=== PATIENT | male | born 1985 | race American Indian/Alaskan Native ===

== ENCOUNTER 2018-07-07 19:24 | Emergency (ER) | payer BC ==
[~2018-07-07] VITALS: Ht 162.6 cm; Wt 67.6 kg
[~2018-07-07 19:24] MED LIST: AMOX500 PO; CEPH500 PO; CIPR500 PO; CLIN300 PO; CRUTCH3 USE; GLIP5 PO; GLYB2.5 PO; HYDACE5 PO; IBUP600 PO; IBUP800 PO; INSDET100 SQ; INSUASPI SC; METF500 PO; METR500 PO; NAPR500 PO; NAPR500EC PO; OMEP40CA12 PO; ONDA4ODT MM; OXYACE5T PO; PIOG15 PO; PROM25 PO; PSYL5.85P PO; Percocet 5-3251 EACH PO; RXHYDACE PO; SULTRIDS PO; TRAM50 PO; Ultram50 MG PO
[2018-07-07] MEDS ORDERED: IBUP800 PO (20:07)
[2018-07-07] MEDS ORDERED: Cyclobenzaprine5 MG PO (20:07)
== END 2018-07-07 20:20 | disposition home or self-care (01) ==
LOC: ER 19:24
DX: S06.9X0A Unspecified intracranial injury without loss of consciousness, initial encounter (principal); M54.5 Low back pain; M54.2 Cervicalgia; E11.9 Type 2 diabetes mellitus without complications; Z79.4 Long term (current) use of insulin; Z87.891 Personal history of nicotine dependence; W19.XXXA Unspecified fall, initial encounter; Y93.67 Activity, basketball
CPT/HCPCS: 96372; 99283-25; J1885

== ENCOUNTER 2020-08-12 04:21 | Observation (INO) | payer BC ==
[~2020-08-12] VITALS: Ht 162.6 cm; Wt 66.2 kg
[~2020-08-12 04:21] MED LIST changes: +Cyclobenzaprine5 MG PO
[2020-08-12 04:35] LABS: Calcium, Ionized (POC) 1.09 mmol/L (1.10-1.46); Chloride (POC) 105 mmol/L (98-108); Creatinine (POC) 2.2 mg/dL (0.8-1.3); Glucose (ISTAT POC) 261 mg/dL (70-99); Hemoglobin (POC) 11.9 g/dL (13.5-17.5); Potassium (POC) 3.9 mmol/L (3.5-5.5); Sodium (POC) 137 mmol/L (135-148); Total CO2 (POC) 23 mmol/L (21-32)
[2020-08-12 04:41] LABS: BASOPHILS ABSOLUTE AUTO 0.06 K/mm3 (0.00-0.23); BASOPHILS PERCENT AUTO 1 % (0-2); EOSINOPHILS ABSOLUTE AUTO 0.19 K/mm3 (0.00-0.68); EOSINOPHILS PERCENT AUTO 2 % (0-6); Hematocrit 34.3 % (37.0-53.0); Hemoglobin 12.4 g/dL (13.5-17.5); IMMATURE GRAN ABSOLUTE AUTO 0.02 K/mm3 (0.00-0.10); IMMATURE GRAN PERCENT AUTO 0 % (0-1); LYMPHOCYTES ABSOLUTE AUTO 3.08 K/mm3 (0.84-5.20); LYMPHOCYTES PERCENT AUTO 33 % (21-46); MONOCYTES ABSOLUTE AUTO 0.66 K/mm3 (0.16-1.47); MONOCYTES PERCENT AUTO 7 % (4-13); Mean Corpuscular HGB 29.7 pg (26.0-34.0); Mean Corpuscular HGB Conc 36.2 g/dL (31.5-36.5); Mean Corpuscular Volume 82 fL (80-100); Mean Platelet Volume 9.5 fL (9.1-12.4); NEUTROPHILS ABSOLUTE AUTO 5.42 K/mm3 (1.96-9.15); NEUTROPHILS PERCENT AUTO 58 % (41-73); Platelet Count 393 K/mm3 (150-400); RDW Standard Deviation 36.3 fL (35.1-46.3); Red Blood Cell Count 4.17 M/mm3 (4.30-5.90); White Blood Cell Count 9.43 K/mm3 (4.00-11.30)
[2020-08-12 05:00] LABS: Alanine Aminotransfer (ALT/SGP 37 U/L (12-78); Albumin, Blood 2.3 g/dL (3.4-5.0); Albumin/Globulin Ratio 0.6 (0.8-1.8); Alk Phos 123 U/L (50-136); Anion Gap 10 mmol/L (6-16); Aspartate Aminotrans (AST/SGOT 25 U/L (12-37); Bilirubin, Total 0.3 mg/dL (0.1-1.0); Blood Urea Nitrogen 31 mg/dL (8-24); Bun/Creatinine Ratio 15.7 (12.0-20.0); CO2, Blood 22 mmol/L (21-32); Calcium, Blood 8.2 mg/dL (8.5-10.1); Chloride, Blood 107 mmol/L (98-108); Creatinine, Blood 1.97 mg/dL (0.60-1.20); Globulin, Blood 4.1 g/dL (2.2-4.0); Glomerular Filtration Rate 41 (60-); Glucose, Blood 259 mg/dL (70-99); Potassium, Blood 3.8 mmol/L (3.5-5.5); Sodium, Blood 139 mmol/L (136-145); Total Protein, Blood 6.4 g/dL (6.4-8.2); Troponin I <0.015 ng/mL (0.000-0.040)
[2020-08-12 13:26] LABS: CPK Creatine Kinase 218 U/L (39-308); Troponin I <0.015 ng/mL (0.000-0.040)
--- NOTE | 2020-08-12 15:28 | NUR ---
Telephone report received from ED RN. Anticipate pt arrival to PCU 15 shortly.
--- NOTE | 2020-08-12 16:56 | NUR ---
echocardiogram complete
--- NOTE | 2020-08-12 17:52 | NUR ---
Pt arrived to PCU; states chest pressure 5/10, better than 9/10 which he was having when he came into the ED, when it was also accompanied by dyspnea. No dyspnea at this time. STates that the chest pressure increases when he tries to take a deep breath. Noted blood pressure is elevated. Pt stated that after 3 doses of sublingual NTG his chest pressure was relieved in the ED. Troponins are negative x2; hydralazine given per PRN orders, and blood pressure did normalize. Dr. Gillette came to see the patient, lopressor orders noted and administered as ordered after pt had dinner. Heart rhythm sinus tachycardia, 104-105 on the monitor noted. Occasional dry cough noted. Pt has no other complaints.
[2020-08-12 21:23] LABS: CPK Creatine Kinase 247 U/L (39-308); Troponin I <0.015 ng/mL (0.000-0.040)
--- NOTE | 2020-08-12 21:46 | NUR ---
CARE ASSUMPTION PT A&O X4. INDEPENDENT IN RM. VSS. SPO2 > 92% ON RA. MONITOR SHOWS SR-ST, HR 90's-110. PT DENIES CP AT THIS TIME. PT INFORMED TO NOTIFY STAFF IF CP RETURNS.
--- NOTE | 2020-08-13 05:46 | NUR ---
SHIFT SUMMARY PT DENIES CP T/O SHIFT. NO EVENTS OR CHANGES THIS SHIFT.
[2020-08-13 06:05] LABS: BASOPHILS ABSOLUTE AUTO 0.01 K/mm3 (0.00-0.23); BASOPHILS PERCENT AUTO 0 % (0-2); EOSINOPHILS PERCENT AUTO 0 % (0-6); Hematocrit 34.7 % (37.0-53.0); Hemoglobin 12.1 g/dL (13.5-17.5); IMMATURE GRAN ABSOLUTE AUTO 0.06 K/mm3 (0.00-0.10); IMMATURE GRAN PERCENT AUTO 1 % (0-1); LYMPHOCYTES ABSOLUTE AUTO 0.88 K/mm3 (0.84-5.20); LYMPHOCYTES PERCENT AUTO 7 % (21-46); MONOCYTES ABSOLUTE AUTO 0.12 K/mm3 (0.16-1.47); MONOCYTES PERCENT AUTO 1 % (4-13); Mean Corpuscular HGB 29.2 pg (26.0-34.0); Mean Corpuscular HGB Conc 34.9 g/dL (31.5-36.5); Mean Corpuscular Volume 84 fL (80-100); Mean Platelet Volume 10.1 fL (9.1-12.4); NEUTROPHILS ABSOLUTE AUTO 11.39 K/mm3 (1.96-9.15); NEUTROPHILS PERCENT AUTO 91 % (41-73); Platelet Count 389 K/mm3 (150-400); RDW Coefficient Variation 12.2 % (11.7-14.2); RDW Standard Deviation 37.2 fL (35.1-46.3); Red Blood Cell Count 4.15 M/mm3 (4.30-5.90); White Blood Cell Count 12.46 K/mm3 (4.00-11.30)
[2020-08-13 06:31] LABS: Albumin, Blood 2.1 g/dL (3.4-5.0); Albumin/Globulin Ratio 0.5 (0.8-1.8); Bilirubin, Total 0.4 mg/dL (0.1-1.0); Bun/Creatinine Ratio 16.1 (12.0-20.0); Calcium, Blood 8.1 mg/dL (8.5-10.1); Creatinine, Blood 2.55 mg/dL (0.60-1.20); Globulin, Blood 3.9 g/dL (2.2-4.0); Potassium, Blood 4.1 mmol/L (3.5-5.5); Thyroid Stimulating Hormone 0.714 uIU/mL (0.360-4.800)
--- NOTE | 2020-08-13 08:49 | NUR ---
States chest pressure was completely relieved during the night, and this morning it is 3/10 and that he has no dyspnea. Hungry for breakfast, took a.m. meds without difficulty. Sinus tachycardia, 107 bpm noted by telemetry. blood pressure WNL.
--- NOTE | 2020-08-13 09:03 | NUR ---
STATES CHEST PRESSURE is gone unless he takes a deep breath, and then it is 3/10
--- NOTE | 2020-08-13 10:22 | NUR ---
Call to Dr. Velazquez regarding new order for Toprol XL after administration of previously ordered metoprolol tartrate this morning. New order rec'd for 25 of Toprol XL now.
--- NOTE | 2020-08-13 12:12 | NUR ---
states chest pressure is 3/10, and only when he takes deep breaths. NO dyspnea/shortness of breath.
[2020-08-13] MEDS ORDERED: INSULANPEN SC (14:10)
[2020-08-13] MEDS ORDERED: HUMALOG100 UNIT/1 (14:12)
[2020-08-13] MEDS ORDERED: METO50ER PO (14:13)
--- NOTE | 2020-08-13 14:45 | NUR ---
Discharge instructions reviewed with the patient and his Blair piña. Reveiwed lifestyle modifications for reducing stress, medication and diabetic treatment compliance. Pt's wang states she can get a blood pressure monitor for the pt to check blood pressure and heart rate before he takes his metoprolol succinate. Pt was given written prescription from dr. Velazquez for glucometer and strips for checking blood sugar before meals. He states that he is very familiar with checking his blood sugar and administering insulin since he has done it since age 16. Reviewed plan for him to see Dr. Schroeder tomorrow, and discuss with her when he should return to work. He states that the earliest he would return would be Tuesday night. Phone number for PCU given to pt in the case that he would have questions or concerns after getting home. Telemetry and IV dc'd; pt is showering before he leaves the hospital.
== END 2020-08-13 15:21 | disposition home or self-care (01) ==
LOC: ER 04:21 → ERHOLD 04:22 → PCU 15:35
PROVIDERS: Student in an Organized Health Care Education/Training Program; ADMIT Internal Medicine
DX: I16.0 Hypertensive urgency (principal); R07.81 Pleurodynia; F41.9 Anxiety disorder, unspecified; I12.9 Hypertensive chronic kidney disease with stage 1 through stage 4 chronic kidney disease, or unspecified chronic kidney disease; E10.22 Type 1 diabetes mellitus with diabetic chronic kidney disease; E10.65 Type 1 diabetes mellitus with hyperglycemia; N18.30 Chronic kidney disease, stage 3 unspecified; R79.89 Other specified abnormal findings of blood chemistry; Z87.891 Personal history of nicotine dependence
CPT/HCPCS: 36415; 71045; 71260; 80047; 80053; 82550; 82947; 83690; 83880; 84443; 84484; 85014; 85025; 93005; 93010; 93306; 96372; 96372-59; 96374-59; 96375-59; 96376; 99285-25; A9270; G0378; J0360; J1650; J2930; J7030; Q9967

== ENCOUNTER 2022-02-04 01:49 | Inpatient (IN) | payer BC ==
[~2022-02-04] VITALS: Ht 160 cm; Wt 61.0 kg
[~2022-02-04 01:49] MED LIST changes: +HUMALOG100 UNIT/1; +INSULANPEN SC; +METO50ER PO
[2022-02-04 03:15] LABS: BASOPHILS ABSOLUTE AUTO 0.02 K/mm3 (0.00-0.23); BASOPHILS PERCENT AUTO 0 % (0-2); EOSINOPHILS ABSOLUTE AUTO 0.23 K/mm3 (0.00-0.68); EOSINOPHILS PERCENT AUTO 2 % (0-6); Hematocrit 21.4 % (37.0-53.0); Hemoglobin 6.8 g/dL (13.5-17.5); IMMATURE GRAN ABSOLUTE AUTO 0.08 K/mm3 (0.00-0.10); IMMATURE GRAN PERCENT AUTO 1 % (0-1); LYMPHOCYTES ABSOLUTE AUTO 0.64 K/mm3 (0.84-5.20); LYMPHOCYTES PERCENT AUTO 6 % (21-46); MONOCYTES PERCENT AUTO 6 % (4-13); Mean Corpuscular HGB 30.2 pg (26.0-34.0); Mean Corpuscular HGB Conc 31.8 g/dL (31.5-36.5); Mean Corpuscular Volume 95 fL (80-100); Mean Platelet Volume 10.5 fL (9.1-12.4); NEUTROPHILS ABSOLUTE AUTO 9.43 K/mm3 (1.96-9.15); NEUTROPHILS PERCENT AUTO 86 % (41-73); Platelet Count 234 K/mm3 (150-400); RDW Coefficient Variation 14.4 % (11.7-14.2); RDW Standard Deviation 49.6 fL (35.1-46.3); Red Blood Cell Count 2.25 M/mm3 (4.30-5.90)
[2022-02-04 03:39] LABS: Beta-hydroxybutyrate 28.7 mg/dL (0.2-2.8)
[2022-02-04 03:45] LABS: Albumin, Blood 3.3 g/dL (3.4-5.0); Bilirubin, Total 0.3 mg/dL (0.1-1.0); Bun/Creatinine Ratio 8.1 (12.0-20.0); Calcium, Blood 5.3 mg/dL (8.5-10.1); Creatinine, Blood 14.4 mg/dL (0.60-1.20); Globulin, Blood 3.2 g/dL (2.2-4.0); Potassium, Blood 4.4 mmol/L (3.5-5.5); Total Protein, Blood 6.5 g/dL (6.4-8.2)
[2022-02-04 04:11] LABS: Influenza A, PCR NEGATIVE (NEGATIVE); Influenza B, PCR NEGATIVE (NEGATIVE); Resp Syncytial Virus, PCR NEGATIVE (NEGATIVE); SARS-Cov-2 (COVID-19) PCR, MMC NEGATIVE (NEGATIVE)
[2022-02-04 05:14] LABS: International Normalized Ratio 1.12; Prothrombin Time Results 11.7 Sec (9.7-11.5)
[2022-02-04 06:41] LABS: Percent Saturation 42.7 % (20.0-50.0)
--- NOTE | 2022-02-04 07:19 | NUR ---
ADMIT TO UNIT. PT ARRIVED MOANING IN PAIN AND DISCOMFORT. STATES 8/10 ON BOTH FLANKS OF THE BACK. PRBC INFUSING, D5NS INFUSING AT 150ML/HR. UNABLE TO LAY DOWN, HAD TO SIT UP ON SIDE OF BED. VS WNL AT THIS TIME. SINUS ON THE MONITOR. NEW IV STARTED TO LEFT FA, 20G, CALCIUM STARTED. DR. STOKES WAS IN TO SEE HIM, STATES HE THINKS THE BLOOD SUGARS BEING LOW ARE RELATED TO HIS N/V, AND NO FOOD INTAKE FOR SEVERAL DAYS. STILL THINKS INSULIN SHOULD BE STARTED AND BALANCED OUT WITH THE D5, WHICH HE WILL BE ADDING BICARB TO THE D5. BS CURRENTLY 92. 0.5MG OF DILUDID GIVEN FOR PAIN. INSULIN BAG SCANNED AND READY TO START. REPORT GIVEN TO DAYSHIFT.
[2022-02-04 08:12] LABS: Source, Urine Clean Catch
[2022-02-04 08:14] LABS: Appearance, Urine Clear (Clear); Bilirubin, Urine Neg (Neg); Blood, Urine 3+ (Neg); Color, Urine Yellow (P-Yellow); Glucose Qualitative, Urine Neg (Neg); Ketones, Urine Neg (Neg); Leukocyte Esterase, Urine Neg (Neg); Nitrite, Urine Neg (Neg); Protein, Urine 4+ (Neg); Urobilinogen, Urine NORM (Normal)
[2022-02-04 08:31] LABS: U Amphetamine Screen Not Detected; U Barbituate Screen Not Detected; U Benzodiazapine Screen Not Detected; U Buprenorphine Screen Not Detected; U Cannabinoids Screen Not Detected; U Cocaine Screen Not Detected; U Methadone Screen Not Detected; U Methamphetamine Screen Not Detected; U Opiates Screen Not Detected; U Oxycodone Screen Not Detected; U Phencyclidine Screen Not Detected; U Propoxyphene Screen Not Detected
[2022-02-04 08:42] LABS: Red Blood Cells, Urine 0-2 /hpf (0-2); Squamous Epithelial Cells Rare /hpf (Few); White Blood Cells, Urine 0-2 /hpf (0-5)
[2022-02-04 08:43] LABS: Bacteria Few /hpf
[2022-02-04 08:44] LABS: Amorphous Mod (0-Heavy)
[2022-02-04 09:16] LABS: BASOPHILS ABSOLUTE AUTO 0.01 K/mm3 (0.00-0.23); BASOPHILS PERCENT AUTO 0 % (0-2); EOSINOPHILS ABSOLUTE AUTO 0.07 K/mm3 (0.00-0.68); EOSINOPHILS PERCENT AUTO 1 % (0-6); Hematocrit 22.6 % (37.0-53.0); Hemoglobin 7.2 g/dL (13.5-17.5); IMMATURE GRAN ABSOLUTE AUTO 0.07 K/mm3 (0.00-0.10); IMMATURE GRAN PERCENT AUTO 1 % (0-1); LYMPHOCYTES ABSOLUTE AUTO 0.64 K/mm3 (0.84-5.20); LYMPHOCYTES PERCENT AUTO 7 % (21-46); MONOCYTES ABSOLUTE AUTO 0.59 K/mm3 (0.16-1.47); MONOCYTES PERCENT AUTO 6 % (4-13); Mean Corpuscular HGB 30.1 pg (26.0-34.0); Mean Corpuscular HGB Conc 31.9 g/dL (31.5-36.5); Mean Corpuscular Volume 95 fL (80-100); Mean Platelet Volume 10.6 fL (9.1-12.4); NEUTROPHILS ABSOLUTE AUTO 8.29 K/mm3 (1.96-9.15); NEUTROPHILS PERCENT AUTO 86 % (41-73); Platelet Count 214 K/mm3 (150-400); RDW Coefficient Variation 14.3 % (11.7-14.2); RDW Standard Deviation 49.8 fL (35.1-46.3); Red Blood Cell Count 2.39 M/mm3 (4.30-5.90); White Blood Cell Count 9.67 K/mm3 (4.00-11.30)
[2022-02-04 09:43] LABS: Magnesium, Blood 1.9 mg/dL (1.6-2.4)
[2022-02-04 10:05] LABS: Albumin, Blood 3.1 g/dL (3.4-5.0); Bilirubin, Total 0.8 mg/dL (0.1-1.0); Bun/Creatinine Ratio 8.9 (12.0-20.0); Calcium, Blood 5.7 mg/dL (8.5-10.1); Creatinine, Blood 13.3 mg/dL (0.60-1.20); Globulin, Blood 3.1 g/dL (2.2-4.0); Potassium, Blood 4.5 mmol/L (3.5-5.5); Total Protein, Blood 6.2 g/dL (6.4-8.2)
--- NOTE | 2022-02-04 10:54 | NUR ---
ASSUME CARE BEDSIDE REPORT FROM OTONIEL OLIVIER AT 0700. PT ADMITTED FROM ER AT 0618 FOR FILIPPO AND DKA. PT REPORTS BILATERAL FLANK PAIN AND NOT FEELING WELL FOR 3 DAYS. HAS BEEN OUT OF INSULIN. PT LAYING IN BED c EYES CLOSED. OPENS EYES TO VERBAL STIMULI. A&OX 4. REPORTS PAIN TO BILATERAL FLANKS, RESTLESS IN BED. LUNGS CLEAR. SKIN P/W/D. SR, RATE 90'S. BP STABLE. ABD ROUND, SOFT, NON TENDER. BT X 4, HYPOACTIVE. SANCHEZ PLACED, CLEAR YELLOW URINE OUT. SENT TO LAB. TRANSFUSED 1 UNIT PRBC, 2ND UNIT PENDING 1200 LABS. D5HCO3 AT 150 ML/HR, INSULIN GTT TITRATED. WILL CONTINUE TO MONITOR.
[2022-02-04 11:04] LABS: Phosphorus, Blood 9.2 mg/dL (2.5-4.9)
[2022-02-04 12:25] LABS: Hematocrit 21.1 % (37.0-53.0); Hemoglobin 7.1 g/dL (13.5-17.5)
[2022-02-04 13:04] LABS: Bun/Creatinine Ratio 8.9 (12.0-20.0); Calcium, Blood 6.5 mg/dL (8.5-10.1); Creatinine, Blood 13.3 mg/dL (0.60-1.20); Potassium, Blood 3.9 mmol/L (3.5-5.5)
[2022-02-04 17:03] LABS: Hematocrit 19.9 % (37.0-53.0); Hemoglobin 6.8 g/dL (13.5-17.5)
[2022-02-04 17:32] LABS: Albumin, Blood 3.1 g/dL (3.4-5.0); Anion Gap 14 mmol/L (6-16); Blood Urea Nitrogen 118 mg/dL (8-24); CO2, Blood 14 mmol/L (21-32); Calcium, Blood 6.4 mg/dL (8.5-10.1); Chloride, Blood 113 mmol/L (98-108); Glomerular Filtration Rate 5 (60-); Glucose, Blood 97 mg/dL (70-99); Phosphorus, Blood 8.8 mg/dL (2.5-4.9); Potassium, Blood 3.4 mmol/L (3.5-5.5); Sodium, Blood 141 mmol/L (136-145)
--- NOTE | 2022-02-04 18:03 | NUR ---
SHIFT SUMMARY PT RESTING IN BED. WAKES c VERBAL STIMULI. ANSWERS QUESTIONS APPROPRIATELY. FOLLOWS COMMANDS. C/O PAIN TO BILATERAL FLANKS, MANAGED WELL c OXYCODONE. INSULIN GTT STOPPED THIS SHIFT. BICARB GTT CONTINUES. 1 UNIT PRBC TRANSFUSED. CA 2 GRAMS REPLACED. POWERGLIDE PLACED TO LUE. SANCHEZ PLACED, 200 ML YELLOW URINE c SEDIMENT OUT. ADA DIET GIVEN, PT EATEN SMALL AMOUNTS. PT ABLE TO REPOSITION SELF. VSS. WILL CONTINUE TO MONITOR UNTIL REPORT TO ONCOMING NURSE.
[2022-02-04 19:58] LABS: Source, Urine Foley catheter
[2022-02-04 20:01] LABS: Appearance, Urine Hazy (Clear); Bilirubin, Urine Neg (Neg); Blood, Urine 5+ (Neg); Glucose Qualitative, Urine Neg (Neg); Ketones, Urine Neg (Neg); Leukocyte Esterase, Urine 3+ (Neg); Nitrite, Urine Neg (Neg); Protein, Urine 4+ (Neg); Urobilinogen, Urine NORM (Normal)
[2022-02-04 20:03] LABS: Color, Urine Pale Yellow (P-Yellow)
[2022-02-04 20:17] LABS: Transitional Epithelial Cells Few /hpf (0-Rare)
[2022-02-04 20:18] LABS: Amorphous Mod (0-Heavy); Bacteria Mod /hpf; Renal Epithelial Rare /hpf (0-Rare); Squamous Epithelial Cells Not Seen /hpf (Few)
--- NOTE | 2022-02-04 20:19 | NUR ---
ASSUMED CARE. PT VERY SOLUMENT, BUT DOES ANSWER QUESTIONS APPROPRIATLY, AOX3. STATES PAIN 5/10, TENDER ON BILATERAL FLANK AREAS. DINNER IS SETTING ON BEDSIDE TABLE, ENCOURAGED HIM TO EAT. BLOOD SUGAR WAS 82. D5 W/ BICARB INFUSING AT 125ML/HR. STARTED POTASSIUM PER ORDERS. SENT UA FOR SANCHEZ PLACEMENT. URINE IS CLEAR YELLOW SOME SEDIMENT. NO EDEMA. LS CLEAR, ON 4L WITH SATS HIGH 90'S. CHANGED BLOOD PRESSURE CUFF FROM WRIST TO ARM, BP WNL NOW. FALLS BACK TO SLEEP EASILY. WILL MONITOR. CALL LIGHT WITH IN REACH, BED IN LOW POSITION.
--- NOTE | 2022-02-04 21:06 | NUR ---
WENDY IS AWAKE BUT STILL VERY DROWSY. SITTING UP ATTEMPTING TO EAT. WILL TAKE A FEW BITES OF FOOD AND THEN FALLS RIGHT BACK TO SLEEP. SATS ARE HOLDING FROM 89-92% ON RA.
[2022-02-05 00:31] LABS: Hematocrit 19.4 % (37.0-53.0); Hemoglobin 6.7 g/dL (13.5-17.5)
[2022-02-05 01:29] LABS: Calcium, Blood 5.6 mg/dL (8.5-10.1); Creatinine, Blood 13.3 mg/dL (0.60-1.20); Potassium, Blood 3.3 mmol/L (3.5-5.5)
--- NOTE | 2022-02-05 01:35 | NUR ---
CRITICAL LAB: CALCIUM LOW AT 5.6. CREATINE NOW 13.30. CALLED DR. BARONE AND INFORMED OF NEW LAB RESULTS. SHE REQUESTED AN IONIZED CALCIUM TO BE DRAWN AND CALL HER WITH THE RESULTS IF LOW. REGARDING CREATINE AND H&H FOLLOW UP WITH MEHRDAD IN AM.
--- NOTE | 2022-02-05 04:30 | NUR ---
ASSUMED CARE OF PT AT 0340 FROM CHARLINE FREDERICK. REPORT RECEIVED. PT PRESENTS IN BED. NAUSEAS WITH EMESIS. PT UNSURE IF HE ASPIRATRED ANY EMESIS. DOES DESATURATE TO 85 PERCENT. DID REQUIRE USING NRB MASK FOR TEMPORARY OXYGENATION IMPROVEMENT. WILL REVIEW CHART AND PLAN OF CARE FOR THIS PT.
[2022-02-05 06:19] LABS: Hematocrit 21.9 % (37.0-53.0); Hemoglobin 7.4 g/dL (13.5-17.5)
--- NOTE | 2022-02-05 06:22 | NUR ---
HAVE BEEN ABLE TO TITRATE O2 BACK TO 5 L/M PER HIGH FLOW CANNULA. PT HAS 200 ML URINE OUTPUT THIS SHIFT. HAVE SENT LABS FOR 0600 TIMED DRAW. PENDING RESULTS. DID SPOT CHECK OF GLUCOSE WHICH REVEALS 70. PT ABLE TO MOVE ABOUT BED ON HIS OWN. WILL CONTINUE TO MONITOR PT, AND WILL REPORT OFF TO ONCOMING RN.
[2022-02-05 06:44] LABS: Magnesium, Blood 1.6 mg/dL (1.6-2.4)
[2022-02-05 07:07] LABS: Albumin, Blood 2.8 g/dL (3.4-5.0); Anion Gap 15 mmol/L (6-16); Blood Urea Nitrogen 120 mg/dL (8-24); Bun/Creatinine Ratio 8.6 (12.0-20.0); CO2, Blood 16 mmol/L (21-32); Calcium, Blood 6.7 mg/dL (8.5-10.1); Chloride, Blood 112 mmol/L (98-108); Glomerular Filtration Rate 4 (60-); Glucose, Blood 79 mg/dL (70-99); Phosphorus, Blood 8.6 mg/dL (2.5-4.9); Potassium, Blood 3.4 mmol/L (3.5-5.5); Sodium, Blood 143 mmol/L (136-145)
--- NOTE | 2022-02-05 09:47 | NUR ---
ASSUMED CARE OF WENDY AT 0700, HE IS VERY SLEEPY, NOT AROUSING TO STIMULI IN THE ROOM OR SPOKEN WORD. HE IS HAVING PERIODS OF DESATURATION D/T SLEEP APNEA. IV NAHCO3 RESTARTED AT 100ML/HR PER 'S INSTRUCTIONS. K+ 10MeQ GIVEN AND CALCIUM IVPB GIVEN PER ORDERS. PT AWAKENS JUST AFTER 0900 BEING DISTURBED FOR HIS IV CARE. HE IS NAUSEATED AND MEDICATED PER MAR. TOOK HIS MEDS WITH SIP OF WATER. LEFT FOREARM PIV SITE PAINFUL, D/C'D. RIGHT PIV IN A/C USED FOR IVPB FERRLECIT. PT BACK TO SLEEP.
--- NOTE | 2022-02-05 10:18 | NUR ---
AVIVA, PT'S SIGNIFICANT OTHER HERE, ASKING QUESTIONS ABOUT PT STILL REQUIRING HIS OXYGEN. SATS ARE REMAINING ~90-91% WITH HFNC @ 6L. LUNG SOUNDS ARE CLEAR, BELLY QUIET. NO EDEMA NOTED IN THE EXTREMITIES. SKIN WARM AND DRY.
[2022-02-05 11:30] LABS: PCO2 Arterial 36.2 mmHg (35-45); pH Blood Arterial 7.25 (7.35-7.45)
[2022-02-05 11:31] LABS: PO2 Arterial 46.1 mmHg (80-100)
[2022-02-05 13:07] LABS: Bun/Creatinine Ratio 8.9 (12.0-20.0); Creatinine, Blood 13.1 mg/dL (0.60-1.20); Potassium, Blood 3.4 mmol/L (3.5-5.5)
--- NOTE | 2022-02-05 14:36 | NUR ---
WENT TO NUCLEAR MEDICINE FOR STUDY, PT TOLERATED WELL SANS TRANSFER BACK TO /, HE BEGAN VOMITING. UPON RETURN TO THE ROOM HE WANTED TO USE THE TOILET, HE WAS TRANSITIONED FROM VENTURI MASK TO HFNC AND HIS SATS DROPPED TO 80% WITH THE MOVEMENT. PT BACK TO BED AND SEAL SKINNER HERE TO PERFORM PROCEDURE. PT ON LEFT SIDE, STATING IMPROVEMENT WITH THE NAUSEA. SATS 97% ON HIS LEFT SIDE WITH VENTURI MASK ON. S/O AT THE BEDSIDE.
--- NOTE | 2022-02-05 17:47 | NUR ---
SPOKE WITH RE: PT UPDATE AND FOLLOW UP ON ORDERS DONE THROUGHOUT THE DAY, SHE WANTED TO SPEAK WITH . CALLED AND ORDERS RECEIVED, DONE. CAME TO SPEAK WITH ME, ALSO WITH S/O AND COUSIN WHO WERE PRESENT AT THE BEDSIDE. WENDY TRIED TO TAKE A COUPLE OF BITES OF DINNER, HE THEN HAD N/V. TOO EARLY TO MEDICATE, ENCOURAGED DEEP BREATHING, SLOWING DOWN. HE IS ABLE TO MAINTAIN SATS ON HFNC WHILE ATTEMPTING TO EAT AND DRINK, HE IS FEELING LESS CONGESTED WITH THE HUMIDIFIER AND THE FLONASE. DOESN'T MIND USING THE VENTI MASK. WENT FROM DOWN TO WITH GOOD SATS. WILL CONTINUE TO USE BOTH NECESSARY. WILL CONTINUE TO MONITOR AND TREAT, WILL REPORT OFF TO NEXT SHIFT WHEN ABLE.
[2022-02-06 03:25] LABS: Hematocrit 21.1 % (37.0-53.0); Hemoglobin 7.1 g/dL (13.5-17.5)
[2022-02-06 03:53] LABS: Magnesium, Blood 1.5 mg/dL (1.6-2.4)
[2022-02-06 04:04] LABS: Albumin, Blood 2.6 g/dL (3.4-5.0); Anion Gap 12 mmol/L (6-16); Blood Urea Nitrogen 114 mg/dL (8-24); Bun/Creatinine Ratio 8.4 (12.0-20.0); CO2, Blood 21 mmol/L (21-32); Calcium, Blood 5.9 mg/dL (8.5-10.1); Chloride, Blood 108 mmol/L (98-108); Glomerular Filtration Rate 4 (60-); Glucose, Blood 103 mg/dL (70-99); Phosphorus, Blood 8.3 mg/dL (2.5-4.9); Potassium, Blood 3.1 mmol/L (3.5-5.5); Sodium, Blood 141 mmol/L (136-145)
--- NOTE | 2022-02-06 05:26 | NUR ---
END OF SHIFT SUMMARY NO OVER NIGHT EVENTS FOR SHIFT PT HAS REMAINED LETHARGIC FOR SHIFT PT IS EASY TO AROUSE BUT APPEARS QUITE ILL. PT HAD A NUMBER OF [facility] THIS AM ALL LABS AND I/O WERE CALLED TO [facility] REPLACING POTASIUM AND CALCIUM. PT HAD ECCO DONE YESTERDAY RESULTED SHOWING EF 55-60% VALVE REGURGITATION PUMANARY HYPERTENSION AMD SMALL PERCARDIAL EFFUSION. WILL CONTINUE TO MONITOR AND REPORT TO ONCOMING RN
[2022-02-06 06:46] LABS: CPK Creatine Kinase 1500 U/L (39-308)
--- NOTE | 2022-02-06 08:02 | NUR ---
ASSUMED CARE OF WENDY AT 0700, HE WAS SLEEPING QUIETLY WITH THE HFNC @ 7L, HE AWAKENED TO VOMITING AND WRETCHING. ZOFRAN GIVEN. SATS HOVERING IN THE MID 80S WITH EXPIRATORY WHEEZE NOTED, VENTI MASK 45%FIO2 PLACED WITH SATS TO LO 90S. WENDY STATES HE FEELS COLD, ALMOST SHIVERING, PALE/WAN APPEARING. PULSES PALP PEDAL, WITH TRACE EDEMA. ARMS WITH TRACE EDEMA WELL.
[2022-02-06 09:22] LABS: PO2 Arterial 65.8 mmHg (80-100); pH Blood Arterial 7.27 (7.35-7.45)
--- NOTE | 2022-02-06 09:37 | NUR ---
AND HAVE BOTH BEEN IN TO SEE THE PATIENT. DISCUSSION ABOUT HAVING DIALYSIS TODAY. PT IS AWARE AND AGREED TO THIS. STATES "WHAT ELSE AM I GOING TO DO?". REVIEWED OPTIONS FOR CARDIOLOGY CONSULT WITH , WILL CONTINUE CURRENT TREATMENT.
--- NOTE | 2022-02-06 10:22 | NUR ---
LAB RESULTS CALLED TO , ORDERS RECEIVED. STILL NO DIALYSIS. PT MADE AWARE, FAMILY IN TO SEE HIM. PT AND FAMILY VERY EMOTIONAL. BICARB INCREASED TO 75ML/HR, MORE BUMEX AND ZAROXOLYN ORDERED.
--- NOTE | 2022-02-06 10:47 | NUR ---
WHILE GIVING THE BUMEX, WENDY GOT NAUSEATED AND BEGAN WRETCHING AGAIN. HE HAD TAKEN THE PO PAIN PILL AND THE ZAROXOLYN, WITH ONLY SIPS OF WATER. HE DID NOT PRODUCE ANYTHING, JUST HAD THE DRY HEAVES. SANCHEZ BAG CONTINUES IN ICE FOR 24 HOUR URINE COLLECTION.
--- NOTE | 2022-02-06 14:38 | NUR ---
WENDY HAD ANOTHER BOUT OF DRY HEAVES AND WRETCHING. THIS TIME MEDICATED WITH ZOFRAN, SATS DROPPED TO MID 60S. VENTURI MASK ON @ 45%. RECOVERING. FAMILY IN TO VISIT.
--- NOTE | 2022-02-06 15:35 | NUR ---
WENDY CONTINUED TO DRY HEAVE WITH BLOOD TINGED MUCOUS RETURN, CALL TO DR. ALBERT WITH ORDERS RECEIVED FOR PHENERGAN. PT RESPONDED WELL TO PHENERGAN, EDUCATED ABOUT THE SIDE EFFECT OF SLEEPING TO PT AND FAMILY. PT'S SANCHEZ EMPTIED OF 1000ML OF LIGHT YELLOW RETURN. AWAIT 1500 LAB RESULT TO CALL DR. CRONIN.
--- NOTE | 2022-02-06 17:07 | NUR ---
WENDY CONTINUES TO SLEEP FROM THE PHENERGAN INJECTION. HE IS WEARING THE HFNC @ 6L WITH 100% SATURATION, BP HAS COME DOWN SOME. HE WAS AWAKENED TO TAKE THE PO METOLAZONE, HE WAS A BIT MORE DIFFICULT TO AROUSE, BUT WAS ABLE TO SWALLOW THE PILLS WITH WATER WITHOUT IT COMING BACK UP. NO OTHER CHANGES AT THIS TIME.
--- NOTE | 2022-02-06 19:29 | NUR ---
assumed care of pt recieved report from KAMRNO OLIVIER. PT LETHARGIC BUT AWAKE FOR BEDSIDE REPORT EATING A SANDWITCH. I WAS GIVEN UPDATES OF GOALS OF CARE 24 HR URIN COLLECTION AND HAPPENINGS DURING DAY SHIFT.
[2022-02-06 21:44] LABS: Albumin, Blood 2.6 g/dL (3.4-5.0); Anion Gap 11 mmol/L (6-16); Blood Urea Nitrogen 113 mg/dL (8-24); Bun/Creatinine Ratio 8.6 (12.0-20.0); CO2, Blood 24 mmol/L (21-32); Chloride, Blood 104 mmol/L (98-108); Glomerular Filtration Rate 4 (60-); Glucose, Blood 148 mg/dL (70-99); Phosphorus, Blood 8.4 mg/dL (2.5-4.9); Potassium, Blood 3.1 mmol/L (3.5-5.5); Sodium, Blood 139 mmol/L (136-145)
[2022-02-06 21:45] LABS: Calcium, Blood 5.7 mg/dL (8.5-10.1)
[2022-02-07 04:31] LABS: BASOPHILS ABSOLUTE AUTO 0.02 K/mm3 (0.00-0.23); BASOPHILS PERCENT AUTO 0 % (0-2); EOSINOPHILS ABSOLUTE AUTO 0.93 K/mm3 (0.00-0.68); EOSINOPHILS PERCENT AUTO 10 % (0-6); Hematocrit 22.2 % (37.0-53.0); Hemoglobin 7.6 g/dL (13.5-17.5); IMMATURE GRAN ABSOLUTE AUTO 0.04 K/mm3 (0.00-0.10); IMMATURE GRAN PERCENT AUTO 0 % (0-1); LYMPHOCYTES ABSOLUTE AUTO 1.17 K/mm3 (0.84-5.20); LYMPHOCYTES PERCENT AUTO 13 % (21-46); MONOCYTES ABSOLUTE AUTO 1.07 K/mm3 (0.16-1.47); MONOCYTES PERCENT AUTO 12 % (4-13); Mean Corpuscular HGB 30.3 pg (26.0-34.0); Mean Corpuscular HGB Conc 34.2 g/dL (31.5-36.5); NEUTROPHILS ABSOLUTE AUTO 5.98 K/mm3 (1.96-9.15); NEUTROPHILS PERCENT AUTO 65 % (41-73); Platelet Count 256 K/mm3 (150-400); RDW Coefficient Variation 13.7 % (11.7-14.2); RDW Standard Deviation 44.1 fL (35.1-46.3); Red Blood Cell Count 2.51 M/mm3 (4.30-5.90); White Blood Cell Count 9.21 K/mm3 (4.00-11.30)
[2022-02-07 04:34] LABS: Mean Corpuscular Volume 88 fL (80-100)
[2022-02-07 04:56] LABS: Magnesium, Blood 1.8 mg/dL (1.6-2.4)
[2022-02-07 05:50] LABS: Albumin, Blood 2.6 g/dL (3.4-5.0); Anion Gap 12 mmol/L (6-16); Blood Urea Nitrogen 109 mg/dL (8-24); Bun/Creatinine Ratio 8.3 (12.0-20.0); CO2, Blood 25 mmol/L (21-32); CPK Creatine Kinase 1204 U/L (39-308); Calcium, Blood 5.9 mg/dL (8.5-10.1); Chloride, Blood 104 mmol/L (98-108); Glomerular Filtration Rate 5 (60-); Glucose, Blood 115 mg/dL (70-99); Phosphorus, Blood 8.1 mg/dL (2.5-4.9); Sodium, Blood 141 mmol/L (136-145)
--- NOTE | 2022-02-07 06:46 | NUR ---
end of shift summary NO OVERNIGHT EVENTS PT RESTED MOST OF EVENING NO EPISODES OF N/V PT HAS HAD A SLIGHT INMPROVEMENT IN CREATINE 13.1. K IS STILL LOW ORDER WAS PLACED TO REPLENISHED. PT HAS REMAINED LETHARGIC AND INTERMINTANLY IRRITABLE WHEN WAKEN FOR THINGS LIKE REPLACING NC. PT HAS HAD A BM LARGE LIQUID WILL CONTINUE TO MONITOR AND REPORT OFF TO AM RN
--- NOTE | 2022-02-07 07:26 | NUR ---
ASSUMED CARE OF WENDY AT 0700, HE WAS UP AT THE [facility] [place]. HE WAS COOPERATIVE IN WAITING FOR ASSISTANCE BEFORE RETURNING TO BED. HE STATES HE HASN'T HAD ANY MORE N/V AND THAT HE IS "FEELING BETTER". PT STILL LOOKS PALE/WAN IN APPEARANCE AND IS VERY WEAK. HFNC @ 6L WITH SATS 100%. NAHCO3 INFUSING W/ A K+ RIDER. HANDS EDEMATOUS, ANKLES LESS SO. WILL COMPLETE THE 24 HOUR URINE COLLECTION AND SEND TO LAB.
[2022-02-07 08:43] LABS: Protein, Urine Quantitative 110.7 mg/dL (0.0-11.9)
[2022-02-07 15:50] LABS: Creatinine, Blood 13.1 mg/dL (0.60-1.20); Potassium, Blood 3.2 mmol/L (3.5-5.5)
--- NOTE | 2022-02-07 18:37 | NUR ---
WENDY HAS DONE WELL TODAY COMPARABLE TO THE LAST 2 DAYS. HIS COLOR IMPROVED WELL HIS APPETITE AND ALERTNESS. HE HAS BEEN A BIT MORE FEISTY TODAY, JOKING WITH THIS NURSE. SANCHEZ OUTPUT OVER 1L, WAS UP TO THE BSC THIS AM, NOTHING FURTHER. AT THE BEDSIDE, RESTING INTERMITTENTLY T/O THE DAY. HE HAD ONE SPELL OF SATS DROPPING TO THE 80S THIS EVENING WHEN HE WAS SLEEPING WELL. NO FURTHER CHANGES. WILL CONTINUE TO MONITOR AND REPORT OFF TO NEXT SHIFT WHEN ABLE.
[2022-02-08 04:11] LABS: Hemoglobin 7.7 g/dL (13.5-17.5)
[2022-02-08 04:36] LABS: Magnesium, Blood 1.7 mg/dL (1.6-2.4)
[2022-02-08 04:43] LABS: Albumin, Blood 2.6 g/dL (3.4-5.0); Anion Gap 10 mmol/L (6-16); Blood Urea Nitrogen 109 mg/dL (8-24); Bun/Creatinine Ratio 8.6 (12.0-20.0); CO2, Blood 30 mmol/L (21-32); Chloride, Blood 99 mmol/L (98-108); Glomerular Filtration Rate 5 (60-); Glucose, Blood 138 mg/dL (70-99); Phosphorus, Blood 7.4 mg/dL (2.5-4.9); Potassium, Blood 2.9 mmol/L (3.5-5.5); Sodium, Blood 139 mmol/L (136-145)
--- NOTE | 2022-02-08 05:57 | NUR ---
SHIFT SUMMARY: PT. REMAINED STABLE OVERNIGHT, REMAINED IN NSR IN THE 80S WITH SLIGHT HYPERTENSION. PT. SATTED ABOVE 92% ALL NIGHT ON 6L HI FLOW NASAL CANNULA BUT DESATS TO 60S WHEN REMOVED. PT. HAS BEEN SLEEPING BUT IS EASILY AROUSABLE. PT. HAS SANCHEZ CATHETER DRAINING TO GRAVITY AND PUT OUT 1950 OVERNIGHT. PT. IS UP TO BEDSIDE COMMODE WITH [facility] FOR BOWEL MOVEMENT. PT. HAD AN EPISODE OF NAUSEA WHICH RESOLVED WITH PRN MEDICATION. PT.'S LINENS HAVE BEEN CHANGED AND PT. HAS NO COMPLAINTS AT THIS TIME.
--- NOTE | 2022-02-08 09:14 | NUR ---
PT SLEEPING, AWAKENS WITH VOICE. HE DENIES HUNGER. DR. CRONIN IN TO SEE PT. HFNC @ 6L WITH SATS 93%, UPPER EXTREM. EDEMA @ 2+, LEGS TRACE, SANCHEZ WITH CLEAR LIGHT YELLOW RETURN. PIV IN LFA, PG IN TAMIA. ELECTROLYTE REPLACEMENT PER ORDERS, IRON IVPB PER ORDER. NS @ 50ML/HR.
--- NOTE | 2022-02-08 09:22 | NUR ---
PT DROPPED HIS SATS TO HI 70'S, SLEEPING ON HIS LEFT SIDE, GOOD PLETH. SLEEPING SOUNDLY, CHANGED TO VENTURI MASK @ 45%. SATS TO 95%.
--- NOTE | 2022-02-08 12:34 | NUR ---
UP TO THE CHAIR FOR LUNCH PER ORDERS FROM . PT WAS VERY SLOW TO MOVE, SITTING ON THE SIDE OF THE BED AND DANGLING FOR SOME TIME. HIS SATS DROPPED TO THE 70'S WITH THE VENTURI MASK ON. HE WAS ABLE TO GET TO THE CHAIR AFTER SEVERAL MINUTES, ONCE IN THE CHAIR HE HAD BOUTS OF DESATURATION TO THE LOW 80S WELL. AFTER A FEW MOMENTS HE RECOVERED TO THE HI 90S, CHANGED OVER TO THE HFNC @ 6L SO HE COULD EAT. HE IS ABLE TO EAT AND IS MORE ALERT AND ENGAGING NOW. HE WAS VERY AGITATED AND FEISTY IN THE TRANSITION. HE IS ENCOURAGED TO DO ARMS AND WRIST CIRCLES, ANKLE CIRCLES, ETC WHILE SITTING TO GET THE FLUID MOVING IN THE EXTREMITIES.
--- NOTE | 2022-02-08 13:33 | NUR ---
WENDY CONTINUES IN THE CHAIR, BY HIS REQUEST. HE ATE MORE FOR LUNCH THAN HE HAS EATEN THE LAST 4 DAYS. HE DID REQUEST A PAIN PILL, SAID THAT IT IS HELP- ING WITH THE LEG PAIN. HE IS TOLERATING BEING IN THE CHAIR VERY WELL SINCE THE INITIAL MOVE. LINEN CHANGED. AT BEDSIDE.
--- NOTE | 2022-02-08 13:54 | NUR ---
WENDY HAD A BRIEF EPISODE OF SATS TO THE 70S WHILE SITTING UP, HE HAD REMOVED THE MASK. WHEN ENCOURAGED TO REPLACE IT HE PUT IT ON AND RECOVERED IN A FEW MOMENTS.
[2022-02-08 13:56] LABS: Bun/Creatinine Ratio 8.2 (12.0-20.0); Calcium, Blood 5.6 mg/dL (8.5-10.1); Creatinine, Blood 12.7 mg/dL (0.60-1.20); Potassium, Blood 3.7 mmol/L (3.5-5.5)
--- NOTE | 2022-02-08 16:01 | NUR ---
WENDY HAS EATEN 2 HALF SANDWICHES SINCE LUNCH TIME, UPON HIS REQUEST. HE CONTINUES IN THE CHAIR, WEARING THE VENTURI MASK AT 45%. HE IS TOLERATING IT WELL. CONTINUES IN THE ROOM.
--- NOTE | 2022-02-08 17:54 | NUR ---
SUMMARY: WENDY GOT BACK TO BED JUST AFTER 1700, HE WASN'T HUNGRY FOR DINNER HE HAD JUST FINISHED HIS SECOND HALF SANDWICH. HE DID WELL GETTING BACK IN TO BED, HE DIDN'T HAVE ANY EPISODES OF DESATURATION. HE CONTINUES ON THE VENTURI MASK AT 45%, HE STATES THAT HE LIKES IT BETTER, IT'S MORE COMFORTABLE. HE CONTINUES WITH NS @ 50ML/HR. HIS HANDS ARE EDEMATOUS AND PAINFUL. HE HAS BEEN MEDICATED TWICE WITH PAIN PILL. HE HAS BEEN TOLD TO MOVE HIS JOINTS, THE MORE HE DOESN'T USE THEM, THE WORSE THEY WILL GET. HE IS ALSO ENCOURAGED TO DRINK MORE WATER AND TOLD THAT THIS WILL HELP WITH THE EDEMA. HE SEEMED TO DO BETTER AFTER RE- CEIVING HIS DIURETICS, LESS TIMES OF DESATURATION AND MORE ALERT, LESS DROWSY. HIS HAS GONE HOME, IN LAWS AND COUSIN NOW VISITING. HE RESTS INTERMITTENTLY.
[2022-02-09 04:20] LABS: Hematocrit 22.8 % (37.0-53.0); Hemoglobin 7.5 g/dL (13.5-17.5)
[2022-02-09 04:39] LABS: Magnesium, Blood 1.4 mg/dL (1.6-2.4)
[2022-02-09 04:47] LABS: Albumin, Blood 2.5 g/dL (3.4-5.0); Anion Gap 10 mmol/L (6-16); Blood Urea Nitrogen 107 mg/dL (8-24); Bun/Creatinine Ratio 8.4 (12.0-20.0); CO2, Blood 29 mmol/L (21-32); Calcium, Blood 5.7 mg/dL (8.5-10.1); Chloride, Blood 102 mmol/L (98-108); Glomerular Filtration Rate 5 (60-); Glucose, Blood 116 mg/dL (70-99); Phosphorus, Blood 6.5 mg/dL (2.5-4.9); Potassium, Blood 3.5 mmol/L (3.5-5.5); Sodium, Blood 141 mmol/L (136-145)
--- NOTE | 2022-02-09 06:17 | NUR ---
PAIN: Medicated for low back pain 1 times per emar with good relief. Patient states "I feel itchy". NEURO: A/Ox4 and cooperative with care. Pain to touch with BLE. Normal strength in all extremities, but weakness noted with L arm grasps. RESP: Maintains over 95% on Venturi 45%. LS clear on top and dim at bases with shallow breathing pattern noted. Multiple episodes of pt pulling off mask and desatting into 70's. Occasional dry cough. CARD: SR on tele 80's, denies any CP/pressure. BP elevated this evening to SBP 160-170. 1+ pitting edema to BLE and BUE. GI: Multiple loose odorous brown bm's this shift. 1 episode of emesis, small amount of undigested food. Medicated per emar with good relief URINARY: Flores cath draining to gravity clear/light urine. UO 1000ml this shift. PSYCH: Withdrawn but cooperative. Replaced Mag and Ca per Dr. Voss. Pt pulled PIV on accident.
[2022-02-09 13:24] LABS: Bun/Creatinine Ratio 7.7 (12.0-20.0); Calcium, Blood 6.4 mg/dL (8.5-10.1); Potassium, Blood 3.6 mmol/L (3.5-5.5)
--- NOTE | 2022-02-09 17:49 | NUR ---
SUMMARY PT RESTING IN BED. DROWSY THIS AFTERNOON. DR. ALBERT AND DR. CRONIN DECIDED PT SHOULD GET PERMACATH TODAY FOR DIAYLYSIS. PT WAS NPO ALL DAY AND RN WAS TOLD HE WOULD BE LEAVING FOR THE [facility]IVET SPINNER THIS AFTERNOON. AROUND 1630 THIS EVENING RN WAS INFORMED THAT PROCEDURE COULD NOT BE PERFORMED TONIGHT. CALLED DR. ALBERT AND DR. CRONIN WHO WERE OK WITH PT WAITING UNTIL THE MORNING FOR PROCEDURE. DR. ALBERT INFORMED OF HTN, NEW ORDERS FOR HYDRALAZINE AND METOPROLOL TONIGHT. PT WAS TOO DROWSY TO EAT AND WHEN OFF VENTI MASK HE DESATS IN TO THE MID 80'S. HOLDING PO FOR NOW. BUMEX GIVEN PER DR. CRONIN. PT IS VISITING WITH FAMILY A LITTLE BIT. FENTANYL GIVEN FOR BACK AND LEG PAIN/SPASMS.
--- NOTE | 2022-02-09 20:00 | NUR ---
ASSUMED CARE OF PT AT 1900. FAMILY WAS AT BEDSIDE IT IS HIS BIRTHDAY TODAY. PT WAS NAPPING, AWAKENS EASILY. AO X3/3. C/O BACK PAIN. WILL TRY KPAD FOR COMFORT. PLAN FOR PERMACATH PLACEMENT TOMORROW BY DR CROFT.
--- NOTE | 2022-02-10 00:23 | NUR ---
PT GETS UP TO BSC INDEPENDENTLY FOR BM. STATES PAIN IS IMPROVED WITH KPAD AND HAS BEEN SLEEPING SOUNDLY. DISCUSSED NPO, PT DECLINED A SNACK PRIOR TO THIS.
--- NOTE | 2022-02-10 06:19 | NUR ---
PT SLEEPS SOUNDLY FOR MOST OF THE NIGHT WITH BRIEF INTERRUPTIONS FOR CARE AND EPISODES OF N/V. N/V MANAGED WITH IV ZOFRAN AND PHENERGAN. PT REMAINS NPO SINCE MIDNIGHT FOR PLANNED PERMACATH PLACEMENT TODAY. NO OTHER SIGNIFICANT CHANGES NOTED. WILL CONTINUE TO MONITOR AND REPORT TO ONCOMING SHIFT.
[2022-02-10 06:22] LABS: Magnesium, Blood 1.7 mg/dL (1.6-2.4)
--- NOTE | 2022-02-10 06:49 | NUR ---
DR CRONIN IN TO SEE PT. LABS REVIEWED, NO NEW ORDERS AT THIS TIME.
--- NOTE | 2022-02-10 08:41 | NUR ---
AM NOTE: ASSUMED CARE OF PT AT 0700. PT IS SLEEPING BUT EASILY AROUSABLE; FALLS BACK ASLEEP VERY QUICKLY. THE PT IS A&O WHEN AWAKE AND IS ABLE TO FOLLOW COMMANDS AND ANSWER QUESTIONS. THE PT HAS CLEAR LUNG SOUNDS THROUGHOUT AND IS CURRENTLY ON THE VENTI MASK WITH 12 L/45%; O2 LEVELS MAINTAINING 96< AND RR 12-14. S1/S2 ASCULTATED WITH SBP IN THE 140'S AND HR 90'S; NO C/O CHEST PAIN. THE PT HAS A SOFT, NON-TENDER ABD WITH HYPOACTIVE BS IN ALL FOUR QUADRANTS; PT NPO AT THIS TIME R/T PRE-PROCEDURE. PT CBG THIS MORNING AT 62, AND PT GIVEN 50 ML D5. PLAN TO RECHECK CBG 30 MINS AFTER ADMINISTRATION. ALL EXTREMITIES WARM WITH PPP X 4. EDEMA NOTED IN THE UPPER/LOWER BILAT EXTREMITIES. THE PT HAS AN SANCHEZ CATHETER THAT IS PATENT AND DRAINING TO GRAVITY; URINE CLEAR, YELLOW. PT S/O, MARTI, AT BEDSIDE THIS MORNING AT 0830. SHE WAS UPDATED ON NEWS R/T PERMACATH INSERTION PROCEDURE PLANNED FOR . SHE WAS UPDATED ON PT'S CURRENT STATUS, AND ALL QUESTIONS WERE ANSWERED AT THIS TIME. WILL CONTINUE TO MONITOR THROUGHOUT THE SHIFT.
[2022-02-10 08:51] LABS: Albumin, Blood 2.6 g/dL (3.4-5.0); Anion Gap 14 mmol/L (6-16); Blood Urea Nitrogen 102 mg/dL (8-24); CO2, Blood 27 mmol/L (21-32); Calcium, Blood 6.1 mg/dL (8.5-10.1); Chloride, Blood 102 mmol/L (98-108); Glomerular Filtration Rate 5 (60-); Glucose, Blood 83 mg/dL (70-99); Phosphorus, Blood 6.9 mg/dL (2.5-4.9); Potassium, Blood 3.5 mmol/L (3.5-5.5); Sodium, Blood 143 mmol/L (136-145)
--- NOTE | 2022-02-10 09:21 | NUR ---
PT TO CAREER PLACEMENT SPECIALIST: PT TRANSPORTED TO CAREER PLACEMENT SPECIALIST AT 0915 VIA BED WITH GLORIA OLIVIER. PT S/O UPDATED ON EXPECTED TIME OF PROCEDURE.
--- NOTE | 2022-02-10 11:00 | NUR ---
PT BACK FROM PERMACATH PLACEMENT, CHARLINE HILTON AWARE WITH PLAN FOR DIALYSIS THIS AFTERNOON.
[2022-02-10 11:02] LABS: Hematocrit 24.6 % (37.0-53.0)
[2022-02-10 15:10] LABS: IMMUNOGLOBULIN A, QN, SERUM 195 mg/dL (90-386); IMMUNOGLOBULIN G, QN, SERUM 624 mg/dL (603-1613); IMMUNOGLOBULIN M, QN, SERUM 57 mg/dL (20-172)
--- NOTE | 2022-02-10 17:48 | NUR ---
SHIFT SUMMARY: PT REMAINS ALERT AND ORIENTED TIMES FOUR. PT IS INDEPENDENT WITH ADL'S REQUIRING STANDY BY ASSIST WHEN AMBULATING TO BEDSIDE COMMODE. PT LUNG SOUNDS CLEAR THROUGHOUT AND DIMINISHED IN THE BASES. PT ON 4 L OF O2 VIA NC' O2 LEVELS 92< AND RR 14-16. PT REMAINS IN SR WITH HR IN THE 80-90'S AND SBP 180'S; PT GIVEN HYDRALAZINE FOR HTN. PT HAS HYPERACTIVE BS IN ALL FOUR QUADRANTS. PERMACATH IMPLANTED EARLIER THIS MORNING AND PT RECIEVED DIALYSIS WITH 4 L TAKEN OFF; PT TOLERATED THIS WELL. THERE IS SOME BLOOD UNDERNEATH PERMACATH DRESSING; DIALYSIS NURSE THAT PERFORMED DIALYSIS ON THE PT THIS SHIFT STATED THAT A DRESSING CHANGE WILL BE CONDUCTED TOMORROW DURING NEXT DIALYSIS TREATMENT. PT SANCHEZ CATHETER REMOVED THIS SHIFT; PT USING URINAL. PT HAS WARM EXTREMITIES AND PPP X 4. WILL CONTINUE TO MONITOR PT UNTIL ONCOMING NURSE ARRIVES.
[2022-02-11 04:06] LABS: Hemoglobin 7.9 g/dL (13.5-17.5)
[2022-02-11 04:33] LABS: Magnesium, Blood 1.9 mg/dL (1.6-2.4)
[2022-02-11 04:44] LABS: Albumin, Blood 2.6 g/dL (3.4-5.0); Anion Gap 11 mmol/L (6-16); Blood Urea Nitrogen 60 mg/dL (8-24); Bun/Creatinine Ratio 6.3 (12.0-20.0); CO2, Blood 29 mmol/L (21-32); Calcium, Blood 6.8 mg/dL (8.5-10.1); Chloride, Blood 101 mmol/L (98-108); Creatinine, Blood 9.47 mg/dL (0.60-1.20); Glomerular Filtration Rate 7 (60-); Glucose, Blood 100 mg/dL (70-99); Phosphorus, Blood 4.9 mg/dL (2.5-4.9); Potassium, Blood 3.5 mmol/L (3.5-5.5); Sodium, Blood 141 mmol/L (136-145)
--- NOTE | 2022-02-11 06:04 | NUR ---
SHIFT SUMMARY: PT. REAMINED STABLE OVERNIGHT WITH HIS ONLY COMPLIANT BEING INTERMITTENT NAUSEA AND VOMITING. MEDICATION GIVEN PER EMAR FOR VOMITING. PT. IS STILL SATTING ABOVE 90% ON 6L NC AND HAS BEEN TACHY INTO THE LOW 100S IN SINUS RHYTHM. MEDICATED PER EMAR FOR HYPERTENSION THROUGHOUT THE NIGHT. PT. IS UP TO BEDSIDE COMMODE WITH STANDBY ASSIST TO VOID AND HAVE BMS. PT. RESTING IN BED WITH CALL LIGHT IN REACH.
--- NOTE | 2022-02-11 09:00 | NUR ---
AM NOTE: ASSUMED CARE OF PT AT 0700. PT ALERT AND ORIENTED X 4; APPEARS MORE DROWSY THIS MORNING COMPARED TO YESTERDAY. PT HAS A TEMPERATURE OF 101.0 THIS MORNING AND IS TACHYCARDIC WITH RATE IN THE 100-110. DR ALBERT AT BEDSIDE THIS MORNING TO ASSESS PT; VERBAL ORDERS GIVEN FOR BLOOD AND URINE CULTURES, AND STATUS CHANGE TO MED FLOOR NO TELE. PT HAS CLEAR LUNG SOUNDS THROUGHOUT AND DIM IN THE BASES; O2 LEVELS 96< AND IS ON 5 L VIA NC. S1/S2 ASCULTATED WITH SBP 120-130. PT C/O N/V THIS MORNING; MEDICATED PER EMAR. PT HAS HYPERACTIVE BS IN ALL FOUR QUADRANTS. PLANS FOR DIALYSIS THIS MORNING AT 0900. WARM EXTREMITIES WITH PPP X 4. WILL CONTINUE TO MONITOR THROUGHOUT THE SHIFT.
[2022-02-11 10:11] LABS: HBSAG SCREEN Negative (Negative); HCV AB <0.1 (0.0-0.9); HEP A AB, IGM Negative (Negative); HEP B CORE AB, IGM Negative (Negative)
[2022-02-11 13:11] LABS: ANTIMYELOPEROXIDASE (MPO) ABS <0.2 units (0.0-0.9); ANTIPROTEINASE 3 (PR-3) ABS <0.2 units (0.0-0.9); ATYPICAL PANCA <1:20 titer (Neg:<1:20); CYTOPLASMIC (C-ANCA) <1:20 titer (Neg:<1:20); PERINUCLEAR (P-ANCA) <1:20 titer (Neg:<1:20)
--- NOTE | 2022-02-11 18:38 | NUR ---
SHIFT SUMMARY: PT REMAINS A&O X 4. PT HAD DIALYSIS THIS MORNING AND 3800 MLS TAKEN OFF; DIALYSIS STOPPED EARLY DUE TO PT BECOMING HYPOTENSIVE. PT'S BP RECOVERED QUICKLY WITH SBP RETURNING TO 140-150'S; RATE 90-100'S. LUNG SOUNDS REMAIN CLEAR. PT FEBRILE THIS MORNING AND TEMP TRENDED DOWN THROUGHOUT THE DAY AND CAME BACK UP TO 99.3 AT 1600. PT LETHARGIC AND DROWSY THROUGHOUT THE SHIFT, BUT HAS BECOME MORE ENERGETIC AROUND 1700. PT ATTEMPTED TO EAT DINNER, BUT MEAL WAS UNAPPETIZING; PT ATE A FEW BITES AND HAD SOME CRACKERS. PT N/V HAS DECREASED SINCE THIS MORNING. PT HAS NOT PRODUCED ANY URINE FOR THIS SHIFT; ORDERS FOR A URINE CULTURE PUT IN THIS MORNING, AND PT INFORMED OF THE NEED TO COLLECT A SAMPLE WHEN HE IS ABLE TO VOID. PT INDEPENDENT WITH BED MOBILITY AND REFUSES OFFERS OF BOOSTS BY THIS RN. WILL CONTINUE TO MONITOR UNTIL ONCOMING NURSE ARRIVES.
[2022-02-12 04:16] LABS: Hematocrit 25.2 % (37.0-53.0); Hemoglobin 8.1 g/dL (13.5-17.5)
[2022-02-12 04:39] LABS: Albumin, Blood 2.7 g/dL (3.4-5.0); Anion Gap 9 mmol/L (6-16); Blood Urea Nitrogen 32 mg/dL (8-24); Bun/Creatinine Ratio 4.7 (12.0-20.0); CO2, Blood 31 mmol/L (21-32); Calcium, Blood 7.5 mg/dL (8.5-10.1); Chloride, Blood 101 mmol/L (98-108); Creatinine, Blood 6.77 mg/dL (0.60-1.20); Glomerular Filtration Rate 10 (60-); Glucose, Blood 81 mg/dL (70-99); Magnesium, Blood 1.9 mg/dL (1.6-2.4); Phosphorus, Blood 4.3 mg/dL (2.5-4.9); Potassium, Blood 3.4 mmol/L (3.5-5.5); Sodium, Blood 141 mmol/L (136-145)
--- NOTE | 2022-02-12 05:55 | NUR ---
UNEVENTFUL NITGHT. PT RESTED OVERNIGHT. INDEPENDENT WITH CARE. AFEBRILE SR SYSTOLIC 150'S NO EDEMA NOTED. ON 6LNC SAT >92% TOLERATING IN PO WELL. AMBULATE IN ROOM. TURNS SELF BONY PROMINENCES OFFLOADED AND PROTECTED.
--- NOTE | 2022-02-12 07:39 | NUR ---
ASSUMED CARE AT 0700, WENT IN TO [facility] FOR CHEM BG. PT IRRITABLE, CURSING. SUGAR 90. NO COVERAGE INDICATED. VSS.
[2022-02-12 09:10] LABS: M-SPIKE, % Not Observed % (Not Observed); PROTEIN,TOTAL,URINE 66.9 mg/dL (Not Estab.)
--- NOTE | 2022-02-12 12:34 | NUR ---
WENDY WENT TO THE SHOWER EARLIER, HE WAS VERY HAPPY WITH THAT, ALTHOUGH IT DID WEAR HIM OUT. HE RODE THE WHEELCHAIR BACK TO HIS ROOM. HE HAS GOOD APPE- TITE AND HAS GOOD SPIRITS. HE IS SMILING AND ENGAGING WITH STAFF, LAUGHING AT THE TV, WHICH HASN'T BEEN HEARD. HE IS WANTING TO LEARN MORE ABOUT HIS NEW DIET ALTERNATIVES. WILL REACH OUT TO SHAY.
--- NOTE | 2022-02-12 17:41 | NUR ---
WENDY HAS BEEN SLEEPING MOST OF THE AFTERNOON. HE DID EAT SOME LUNCH, BETTER THAN HIS BREAKFAST. HE IS SITTING UP IN THE ROOM NOW AND EATING HIS DINNER TRAY. HE JUST RECEIVED WORD THAT HE WILL BE MOVING TO A ROOM ON THE 3RD FLOOR. HE IS OK WITH THAT. HIS SPOT CHECK FOR HIS SP02 IS 94% WHILE SLEEPING ON RA. NO FEVERS TODAY. WILL REPORT TO NEXT NURSE AND TRANSFER WHEN FINISHED EATING.
--- NOTE | 2022-02-12 18:30 | NUR ---
REPORT TO CLARK GUZMANRN, PT'S BELONGINGS GATHERED, GRANDMA AND COUSIN ACCOMPANYING HIM TO MEDICAL FLOOR.
--- NOTE | 2022-02-12 18:50 | NUR ---
TRANSFER NOTE- PT TRANSFERED TO MEDICAL FLOOR PRIOR TO SHIFT CHANGE. PT WAS ABLE TO TRANSFER TO THE BED FROM THE [facility]. CALLED TELE, BOX AND PT VERIFIED. PT LUNG SOUNDS ARE CLEAR, QUILLER RUNNER ARE EQUAL BUT WEAK. PT WANTS TO SIT UP ON THE EOB FOR A WHILE, MULTIPLE FAMILY AT THE BEDSIDE. PER REPORT PT DID NOT HAVE DIALYSIS TODAY. HE HAS HAD TWO TREATMENTS WITH A TOTAL OF 8L REMOVED. PT DENIES THE NEED FOR PAIN MEDICATION UPON ARRIVAL TO MEDICAL FLOOR. PERIPHERAL PULSES EASILY PALPABLE. PER REPORT PT HAS HAD STOOLS BUT HAS NOT VOIDED SINCE SANCHEZ CATH WAS REMOVED.
[2022-02-13 05:06] LABS: Hemoglobin 8.4 g/dL (13.5-17.5)
--- NOTE | 2022-02-13 05:54 | NUR ---
SHIFT SUMMARY: PT IS ALERT AND ORIENTED. PT IS CALM AND COOPERATIVE WITH CARE. PT CALLS APPROPRIATELY. PT IS A STANDBY ASSIST TO THE BATHROOM. PT DENIES PAIN, NAUSEA, VOMITING, AND SOB. PT SLEPT MUCH OF THE NIGHT WHEN NOT DISTURBED. NO ACUTE CHANGES OR COMPLICATIONS THIS SHIFT. BED IN LOW POSITION, CALL LIGHT WITHIN REACH. WILL CONTINUE TO MONITOR.
[2022-02-13 06:06] LABS: Albumin, Blood 2.6 g/dL (3.4-5.0); Anion Gap 11 mmol/L (6-16); Blood Urea Nitrogen 40 mg/dL (8-24); Bun/Creatinine Ratio 5.1 (12.0-20.0); CO2, Blood 30 mmol/L (21-32); Calcium, Blood 7.5 mg/dL (8.5-10.1); Chloride, Blood 99 mmol/L (98-108); Creatinine, Blood 7.79 mg/dL (0.60-1.20); Glomerular Filtration Rate 8 (60-); Glucose, Blood 93 mg/dL (70-99); Magnesium, Blood 2.1 mg/dL (1.6-2.4); Phosphorus, Blood 4.8 mg/dL (2.5-4.9); Potassium, Blood 3.2 mmol/L (3.5-5.5); Sodium, Blood 140 mmol/L (136-145)
--- NOTE | 2022-02-13 17:09 | NUR ---
DAYSHIFT SUMMARY Patient had 1 episode of emesis this morning, IV Phenergan given, PRN effective. Dialysis this morning. MD assessed patient at bedside, instructed RN to administer zofran in the morning. Plan is for to discharge tomorrow after dialysis.
[2022-02-13 18:30] LABS: Source, Urine Clean Catch
[2022-02-13 19:44] LABS: Appearance, Urine Clear (Clear); Bilirubin, Urine Neg (Neg); Blood, Urine 1+ (Neg); Color, Urine Yellow (P-Yellow); Glucose Qualitative, Urine 1+ (Neg); Ketones, Urine Neg (Neg); Leukocyte Esterase, Urine Neg (Neg); Nitrite, Urine Neg (Neg); Protein, Urine 4+ (Neg); Specific Gravity, Urine 1.015 (1.003-1.022); Urobilinogen, Urine NORM (Normal)
[2022-02-13 20:07] LABS: Amorphous Light (0-Heavy); Bacteria Few /hpf; Red Blood Cells, Urine 0-2 /hpf (0-2); Squamous Epithelial Cells Not Seen /hpf (Few); White Blood Cells, Urine 0-2 /hpf (0-5)
--- NOTE | 2022-02-14 04:09 | NUR ---
SHIFT SUMMARY: PT IS ALERT AND ORIENTED. PT IS CALM AND COOPERATIVE WITH CARE. PT CALLS APPROPRIATELY. FAMILY IN VISITING AT THE START OF THE NIGHT. PT DENIES PAIN, NAUSEA, VOMITING AND SOB. POSSIBLE DC TODAY AFTER DIALYSIS. NO ACUTE CHANGES OR COMPLICATIONS. WILL CONTINUE TO MONITOR.
[2022-02-14 05:52] LABS: Hemoglobin 9.1 g/dL (13.5-17.5)
[2022-02-14 09:50] LABS: Anion Gap Unable to Calculate mmol/L (6-16)
[2022-02-14 09:51] LABS: Bun/Creatinine Ratio Unable to Calculate (12.0-20.0)
[2022-02-14] MEDS ORDERED: BUME2 PO (09:55)
[2022-02-14] MEDS ORDERED: CALCITRIOL0.5 MC1 PO (09:55)
[2022-02-14] MEDS ORDERED: CALCIUM CARBON500 M2 (09:56)
[2022-02-14] MEDS ORDERED: METO25 (09:57)
[2022-02-14 10:34] LABS: Albumin, Blood 2.9 g/dL (3.4-5.0); Anion Gap 7 mmol/L (6-16); Blood Urea Nitrogen 22 mg/dL (8-24); Bun/Creatinine Ratio 3.8 (12.0-20.0); CO2, Blood 32 mmol/L (21-32); Calcium, Blood 8.2 mg/dL (8.5-10.1); Chloride, Blood 101 mmol/L (98-108); Creatinine, Blood 5.77 mg/dL (0.60-1.20); Glomerular Filtration Rate 12 (60-); Glucose, Blood 159 mg/dL (70-99); Phosphorus, Blood 3.3 mg/dL (2.5-4.9); Potassium, Blood 3.5 mmol/L (3.5-5.5); Sodium, Blood 140 mmol/L (136-145)
--- NOTE | 2022-02-14 11:52 | NUR ---
Patient had diaylsis in room today, after treatment patient reports feeling tired. Discharge home after dialysis tx. Reviewed discharge instructions with patient & , medications information provided. Removed indwelling IV fro RUE, Catheter tip intact, site WNL. Patient left unit at 1145.
== END 2022-02-14 11:50 | disposition home or self-care (01) | DRG 673 ==
LOC: ER 01:49 → ICUE 05:38 → ICUW 05:38 → ICUE 06:15 → MEDS 02-12 18:20
PROVIDERS: Emergency Medicine; Internal Medicine; Internal Medicine Nephrology; Student in an Organized Health Care Education/Training Program; ADMIT Internal Medicine
PROC: 0JH63XZ Insertion of Tunneled Vascular Access Device into Chest Subcutaneous Tissue and Fascia, Percutaneous Approach (ICD-10-PCS; principal; 2022-02-10)
PROC: 02HV33Z Insertion of Infusion Device into Superior Vena Cava, Percutaneous Approach (ICD-10-PCS; 2022-02-10)
PROC: B5181ZA Fluoroscopy of Superior Vena Cava using Low Osmolar Contrast, Guidance (ICD-10-PCS; 2022-02-10)
PROC: 5A1D70Z Performance of Urinary Filtration, Intermittent, Less than 6 Hours Per Day (ICD-10-PCS; 2022-02-10)
PROC: 30233N1 Transfusion of Nonautologous Red Blood Cells into Peripheral Vein, Percutaneous Approach (ICD-10-PCS; 2022-02-10)
DX: N17.0 Acute kidney failure with tubular necrosis (principal); E10.10 Type 1 diabetes mellitus with ketoacidosis without coma; J96.01 Acute respiratory failure with hypoxia; J96.02 Acute respiratory failure with hypercapnia; I12.0 Hypertensive chronic kidney disease with stage 5 chronic kidney disease or end stage renal disease; E87.1 Hypo-osmolality and hyponatremia; N18.6 End stage renal disease; Z20.822 Contact with and (suspected) exposure to COVID-19; E10.22 Type 1 diabetes mellitus with diabetic chronic kidney disease; M54.9 Dorsalgia, unspecified; E83.39 Other disorders of phosphorus metabolism; E83.42 Hypomagnesemia; E10.40 Type 1 diabetes mellitus with diabetic neuropathy, unspecified; D63.1 Anemia in chronic kidney disease; E83.51 Hypocalcemia; Z91.14 Patient's other noncompliance with medication regimen; Z87.891 Personal history of nicotine dependence; Z79.4 Long term (current) use of insulin
CPT/HCPCS: 0241U; 36415; 36430; 36558; 36600; 51702; 71045; 74176; 76770; 76937; 77001; 78582; 80048; 80053; 80069; 80074; 81001; 81050; 82010; 82040; 82306; 82330; 82550; 82565; 82570; 82607; 82728; 82746; 82800; 82803; 82947; 83036; 83516; 83520; 83540; 83550; 83615; 83735; 83970; 84100; 84132; 84156; 84166; 85014; 85018; 85025; 85610; 85730; 86037; 86038; 86317; 86334; 86335; 86850; 86900; 86901; 86920; 87040; 87086; 93306; 94760; 94762; 96361; 96374; 96375; 99152; 99291-25; A9270; A9540; C1750; C1751; C1769; C1894; C9113; J0360; J0881; J1170; J1644; J1815; J1885; J2250; J2405; J2550; J2916; J3010; J3475; J3480; J7030; J7042; J7050; J7070; P9016

== ENCOUNTER 2022-08-14 23:25 | Emergency (ER) | payer OTHER ==
[~2022-08-14] VITALS: Ht 160 cm; Wt 70.8 kg
[~2022-08-14 23:25] MED LIST changes: +CALCITRIOL0.5 MC1 PO; +CALCIUM CARBON500 M2; +HUMALOG KW200 UNIT/2 SQ
[2022-08-15] LABS: BASOPHILS ABSOLUTE AUTO 0.08 K/mm3 (0.00-0.23); BASOPHILS PERCENT AUTO 1 % (0-2); EOSINOPHILS ABSOLUTE AUTO 0.38 K/mm3 (0.00-0.68); EOSINOPHILS PERCENT AUTO 4 % (0-6); Hematocrit 26.5 % (37.0-53.0); Hemoglobin 9.2 g/dL (13.5-17.5); IMMATURE GRAN ABSOLUTE AUTO 0.08 K/mm3 (0.00-0.10); IMMATURE GRAN PERCENT AUTO 1 % (0-1); LYMPHOCYTES ABSOLUTE AUTO 2.13 K/mm3 (0.84-5.20); LYMPHOCYTES PERCENT AUTO 22 % (21-46); MONOCYTES ABSOLUTE AUTO 0.99 K/mm3 (0.16-1.47); MONOCYTES PERCENT AUTO 10 % (4-13); Mean Corpuscular HGB 30.8 pg (26.0-34.0); Mean Corpuscular HGB Conc 34.7 g/dL (31.5-36.5); Mean Corpuscular Volume 89 fL (80-100); NEUTROPHILS ABSOLUTE AUTO 5.99 K/mm3 (1.96-9.15); NEUTROPHILS PERCENT AUTO 62 % (41-73); Platelet Count 364 K/mm3 (150-400); RDW Coefficient Variation 13.1 % (11.7-14.2); RDW Standard Deviation 42.4 fL (35.1-46.3); Red Blood Cell Count 2.99 M/mm3 (4.30-5.90); White Blood Cell Count 9.65 K/mm3 (4.00-11.30)
[2022-08-15 00:57] LABS: Albumin/Globulin Ratio 0.8 (0.8-1.8); Bilirubin, Total 0.2 mg/dL (0.1-1.0); Bun/Creatinine Ratio 5.3 (12.0-20.0); Calcium, Blood 7.3 mg/dL (8.5-10.1); Creatinine, Blood 19.6 mg/dL (0.60-1.20); Globulin, Blood 3.8 g/dL (2.2-4.0); Potassium, Blood 4.1 mmol/L (3.5-5.5); Total Protein, Blood 6.8 g/dL (6.4-8.2)
[2022-08-15] MEDS ORDERED: TRAM50 PO (04:17)
[2022-08-15] MEDS ORDERED: ONDA4ODT MM (04:19)
[2022-08-15 06:09] LABS: RBC Count, Body Fluid 8 /mm3 (0-0)
[2022-08-15 06:10] LABS: Automated BF WBC Count 9.415 K/mm3 (0-999)
[2022-08-15 06:11] LABS: Body Fluid WBC Count 9415 /mm3 (0-999)
[2022-08-15 06:12] LABS: Appearance, Body Fluid Hazy (Clear); Color, Body Fluid L Yellow (None-Yellow)
[2022-08-15 06:37] LABS: Total Cell Count, Body Fluid 100
[2022-08-15] MEDS ORDERED: SEVEC800 PO (11:28)
[2022-08-15] MEDS ORDERED: Tessalon200 MG PO (14:58)
[2022-08-15] MEDS ORDERED: CALCIUM ACETAT667 M2 PO (14:59)
[2022-08-15] MEDS ORDERED: NOVOLOG100 UNIT/2 SC (14:59)
[2022-08-15] MEDS ORDERED: ONDA4 PO (15:00)
[2022-08-15] MEDS ORDERED: BUME2 PO (15:01)
[2022-08-15] MEDS ORDERED: MIDO5 PO (15:02)
[2022-08-15] MEDS ORDERED: METO25ER PO (15:02)
[2022-08-15] MEDS ORDERED: BASAGLAR K100 UNIT/8 SC (15:04)
== END 2022-08-15 04:46 | disposition home or self-care (01) ==
LOC: ER 23:25
PROVIDERS: Student in an Organized Health Care Education/Training Program
DX: K65.2 Spontaneous bacterial peritonitis (principal); K52.9 Noninfective gastroenteritis and colitis, unspecified; E83.51 Hypocalcemia; D64.9 Anemia, unspecified; E87.1 Hypo-osmolality and hyponatremia; I12.0 Hypertensive chronic kidney disease with stage 5 chronic kidney disease or end stage renal disease; E11.22 Type 2 diabetes mellitus with diabetic chronic kidney disease; N18.6 End stage renal disease; Z99.2 Dependence on renal dialysis; E87.20 Acidosis, unspecified; Z87.891 Personal history of nicotine dependence; Z79.899 Other long term (current) drug therapy; Z79.4 Long term (current) use of insulin
CPT/HCPCS: 74177; 80053; 83690; 85025; 87070; 87075; 87205; 89051; 93005; 93010; 96374-59; 96375; 99285-25; A9270; J0610; J3010; J7030; Q9967

== ENCOUNTER 2022-08-15 10:33 | Inpatient (IN) | payer OTHER ==
[~2022-08-15] VITALS: Wt 73.7 kg
[2022-08-15] MEDS ORDERED: SEVEC800 PO (11:28)
[2022-08-15] MEDS ORDERED: Tessalon200 MG PO (14:58)
[2022-08-15] MEDS ORDERED: CALCIUM ACETAT667 M2 PO (14:59)
[2022-08-15] MEDS ORDERED: NOVOLOG100 UNIT/2 SC (14:59)
[2022-08-15] MEDS ORDERED: ONDA4 PO (15:00)
[2022-08-15] MEDS ORDERED: BUME2 PO (15:01)
[2022-08-15] MEDS ORDERED: MIDO5 PO (15:02)
[2022-08-15] MEDS ORDERED: METO25ER PO (15:02)
[2022-08-15] MEDS ORDERED: BASAGLAR K100 UNIT/8 SC (15:04)
[2022-08-15 15:26] LABS: Automated BF WBC Count 0.943 K/mm3 (0-999)
--- NOTE | 2022-08-15 16:06 | NUR ---
PD RN TO PT RN MED 304 AT APPROX 1430 TO SET UP PD MACHINE FOR IN AND OUT FLUSHES TREATMENT. AT APPROX 1445 AN EFFLUENT SAMPLE WAS TAKEN FROM THE PD CATHETER FOR A CBC WITH DIFF. ORDERED BY DR CRONIN. THE PATIENTS IN AN OUT FLUSHES TX STARTED AT APPROX 1440. SAMPLE TAKEN TO LAB PENDING RESULTS TO DETERMINE TREATMENT DOSING FOR ANTIBIOTICS. PT IS SUSPECTED TO HAVE PERITONITIS. TX DIALYSATE SENT TO PHARMACY TO BE LOADED WITH HEPARIN AND ANTIBIOTICS PER DR CARRASCO.
[2022-08-15 17:09] LABS: Body Fluid WBC Count 943 /mm3 (0-999)
[2022-08-15 17:12] LABS: RBC Count, Body Fluid 0 /mm3 (0-0)
[2022-08-15 17:22] LABS: Total Cell Count, Body Fluid 100
[2022-08-15 17:23] LABS: Appearance, Body Fluid Clear (Clear); Color, Body Fluid No color (None-Yellow)
--- NOTE | 2022-08-15 18:14 | NUR ---
SHIFT SUMMARY PT WAS A DIRECT ADMIT TODAY TO MEDICAL FLOOR AT APPROX 1115. PT IS AxOx4. PLEASANT AND COOPERATIVE WITH CARE. PT REPORTS 7/10 PAIN, BUT DENIES PAIN MEDICATION THIS SHIFT. PT REPORTS FEELING RELIEF FROM REPOSITIONING AND UNINTERRUPTED REST. PT'S IN ROOM DURING ADMISSION. HOSPITALIST ROUNDED WITH PT AND FAMILY. VITALS REVIEWED. PT'S BP NOTED TO BE ELEVATED. DR CRONIN CONSULTED FOR NEPHROLOGY AND ORDERES PLACED. DIALYSIS NURSE IN ROOM THIS SHIFT SETTING UP PERITONEAL DIALYSIS. PT HAS HAD SOME NAUSEA AND LOSS OF APPETITE. MEDICATED PER EMAR. PT IS CURRENTLY SLEEPING IN BED WITH CALL LIGHT IN REACH. DENIED ANY NEEDS AT LAST NURSE ROUND. ADMISSION COMPLETED.
--- NOTE | 2022-08-15 19:43 | NUR ---
PD RN TO PT RM MED 304 AT APPROX 1630 TO RESPOND TO END OF TREATMENT ALARMS AND DISCONNECT PT FROM IN AND OUT FLUSHES TX AND THEN RECONNECT HIM TO HIS NIGHTLY PD TX AND ANTIBIOTIC LAST FILL. HIS TREATMENT WAS PROGRAMMED FOLLOWS: TOTAL VOLUME 6000ML, THERAPY TIME 6:30, FILL VOLUME 1500ML, LAST FILL 1500LM WITH ANTIBIOTICS, AVERAGE DWELL TIME OF 1:48, AND 3 CYCLES. HIS CCPD TX WAS STARTED AT APPROX 1730.
[2022-08-16 04:58] LABS: BASOPHILS ABSOLUTE AUTO 0.05 K/mm3 (0.00-0.23); BASOPHILS PERCENT AUTO 1 % (0-2); EOSINOPHILS ABSOLUTE AUTO 0.17 K/mm3 (0.00-0.68); EOSINOPHILS PERCENT AUTO 2 % (0-6); Hematocrit 26.6 % (37.0-53.0); Hemoglobin 9.1 g/dL (13.5-17.5); IMMATURE GRAN ABSOLUTE AUTO 0.06 K/mm3 (0.00-0.10); IMMATURE GRAN PERCENT AUTO 1 % (0-1); LYMPHOCYTES ABSOLUTE AUTO 1.08 K/mm3 (0.84-5.20); LYMPHOCYTES PERCENT AUTO 12 % (21-46); MONOCYTES ABSOLUTE AUTO 0.77 K/mm3 (0.16-1.47); MONOCYTES PERCENT AUTO 8 % (4-13); Mean Corpuscular HGB 30.5 pg (26.0-34.0); Mean Corpuscular HGB Conc 34.2 g/dL (31.5-36.5); Mean Corpuscular Volume 89 fL (80-100); NEUTROPHILS ABSOLUTE AUTO 7.18 K/mm3 (1.96-9.15); NEUTROPHILS PERCENT AUTO 77 % (41-73); Platelet Count 361 K/mm3 (150-400); RDW Coefficient Variation 13.6 % (11.7-14.2); RDW Standard Deviation 44.1 fL (35.1-46.3); Red Blood Cell Count 2.98 M/mm3 (4.30-5.90); White Blood Cell Count 9.31 K/mm3 (4.00-11.30)
--- NOTE | 2022-08-16 05:05 | NUR ---
SUMMARY: PATIENT WAS VERY HYPERTENSIVE AT START OF SHIFT. ADMINISTERED PRN ANTIHYPERTENSIVES AND BP IMPROVED. PATIENT WAS ALSO HAVING MULTIPLE EPISODES OF EMESIS. GAVE ZOFRAN WITH NO RELIEF, RECIEVED ORDER FOR REGLAN. NAUSEA WAS BETTER FOR ABOUT AN HOUR AND THEN PATIENT HAD CONTINUOUS SEVERE NAUSEA AND DRYHEAVING. PROVIDER ORDERED ONE TIME DOSE OF ATIVAN AND SYMPTOMS RESOLVED. PATIENT WAS ABLE TO GET A LITTLE REST, REPORTS MINIMAL NAUSEA THIS AM AND BP HAS GREATLY IMPROVED. PATIENT CURRENTLY RESTING COMFORTABLY IN BED. CALL LIGHT IN REACH. PERITONEAL DYALYSIS RUNNING. IV ABX STARTED LAST NIGHT.
[2022-08-16 05:22] LABS: Magnesium, Blood 2.5 mg/dL (1.6-2.4)
[2022-08-16 05:45] LABS: Albumin, Blood 2.7 g/dL (3.4-5.0); Anion Gap 12 mmol/L (6-16); Blood Urea Nitrogen 85 mg/dL (8-24); CO2, Blood 20 mmol/L (21-32); Calcium, Blood 7.3 mg/dL (8.5-10.1); Chloride, Blood 105 mmol/L (98-108); Glucose, Blood 119 mg/dL (70-99); Potassium, Blood 3.7 mmol/L (3.5-5.5); Sodium, Blood 137 mmol/L (136-145)
[2022-08-16 05:46] LABS: Bun/Creatinine Ratio 5.1 (12.0-20.0); Glomerular Filtration Rate 3 (60-); Phosphorus, Blood 8.7 mg/dL (2.5-4.9)
--- NOTE | 2022-08-16 06:45 | NUR ---
DIALYSIS NOTE CCPD TX COMPLETED PRESCRIBED. IDRAIN: 78, TUF: 504, AVG DWELL: 1:47. PT DISCONNECTED PER P&P, EFFLUENT SAMPLE COLLECTED FOR CELL COUNT ORDERED.
[2022-08-16 09:27] LABS: Automated BF WBC Count 0.022 K/mm3 (0-999)
[2022-08-16 09:35] LABS: Body Fluid WBC Count 22 /mm3 (0-999)
[2022-08-16 09:55] LABS: RBC Count, Body Fluid 0 /mm3 (0-0)
[2022-08-16 09:58] LABS: Appearance, Body Fluid Clear (Clear); Color, Body Fluid No color (None-Yellow)
[2022-08-16 10:31] LABS: Total Cell Count, Body Fluid 10
--- NOTE | 2022-08-16 17:33 | NUR ---
SHIFT SUMMARY NO ACUTE CHANGES DURING SHIFT. PT ALERT AND ORIENTED, CALLS APPROPRIATELY. PT WITH CONTINUED NAUSEA/VOMITING. PT MEDICATED X 2 WITH PRN ANTINAUSEA MEDICAIONS. CONTINUE IV ABX. NO C/O PAIN DURING SHIFT. WILL CONTINUE TO MONITOR. CALL LIGHT WITHIN REACH.
--- NOTE | 2022-08-16 21:41 | NUR ---
PD RN TO PT RM MED#[id number] AT APPROX 2100 TO CONNECT NIGHTLY PD TREATMEANT. HIS BEDSIDE RN WAS IN THE ROOM GIVING HIM HIS NIGHTLY MEDS. CCPD TX TOTAL VOLUME OF 6000ML, TOTAL THERAPY TIME OF 6 HORS AND 30 MINUTES, THERE ARE 3 CYCLES WITH FILL VOLUMES OF 1500 ML EACHG AND A DWELL TIME OF 108 MINUTES EACH WITH A LAST FILL OF 1500ML WITH ANTIBIOTIC TREATMENT.
--- NOTE | 2022-08-17 04:20 | NUR ---
SHIFT UNREMARKABLE. PT TOOK 2100 MEDICATIONS WITHOUT DIFFICULTY AND WAS ABLE TO SLEEP THROUGH MOST OF REMAINDER OF SHIFT. AT ABOUT 2100 QUALIFIED NURSE CAME TO START PT PERITONEAL DIALYSIS FOR EVENING WHICH HAS BEEN RUNNING SINCE WITHOUT DIFFICULTY. EARLY IN MORNING, PT VOMITED ONCE BUT DENIED ANY NAUSEA THEREAFTER. CALL LIGHT LEFT WITHIN REACH.
[2022-08-17 04:39] LABS: BASOPHILS ABSOLUTE AUTO 0.05 K/mm3 (0.00-0.23); BASOPHILS PERCENT AUTO 1 % (0-2); EOSINOPHILS ABSOLUTE AUTO 0.39 K/mm3 (0.00-0.68); EOSINOPHILS PERCENT AUTO 4 % (0-6); Hematocrit 26.4 % (37.0-53.0); IMMATURE GRAN ABSOLUTE AUTO 0.07 K/mm3 (0.00-0.10); IMMATURE GRAN PERCENT AUTO 1 % (0-1); LYMPHOCYTES ABSOLUTE AUTO 1.15 K/mm3 (0.84-5.20); LYMPHOCYTES PERCENT AUTO 12 % (21-46); MONOCYTES ABSOLUTE AUTO 0.83 K/mm3 (0.16-1.47); MONOCYTES PERCENT AUTO 8 % (4-13); Mean Corpuscular HGB 30.7 pg (26.0-34.0); Mean Corpuscular HGB Conc 34.1 g/dL (31.5-36.5); Mean Corpuscular Volume 90 fL (80-100); Mean Platelet Volume 8.7 fL (9.1-12.4); NEUTROPHILS ABSOLUTE AUTO 7.37 K/mm3 (1.96-9.15); NEUTROPHILS PERCENT AUTO 75 % (41-73); Platelet Count 376 K/mm3 (150-400); RDW Standard Deviation 45.4 fL (35.1-46.3); Red Blood Cell Count 2.93 M/mm3 (4.30-5.90); White Blood Cell Count 9.86 K/mm3 (4.00-11.30)
[2022-08-17 05:50] LABS: Albumin, Blood 2.6 g/dL (3.4-5.0); Anion Gap 13 mmol/L (6-16); Blood Urea Nitrogen 80 mg/dL (8-24); CO2, Blood 21 mmol/L (21-32); Calcium, Blood 7.1 mg/dL (8.5-10.1); Chloride, Blood 105 mmol/L (98-108); Glucose, Blood 127 mg/dL (70-99); Potassium, Blood 3.2 mmol/L (3.5-5.5); Sodium, Blood 139 mmol/L (136-145)
[2022-08-17 05:52] LABS: Bun/Creatinine Ratio 4.4 (12.0-20.0); Glomerular Filtration Rate 3 (60-)
[2022-08-17 05:53] LABS: Phosphorus, Blood 9.3 mg/dL (2.5-4.9)
--- NOTE | 2022-08-17 08:19 | NUR ---
DIALYSIS NOTE CCPD TX COMPLETED PRESCRIBED. IDRAIN: 737, TUF: 452, AVG DWELL: 1:34. PT DISCONNECTED PER P&P.
--- NOTE | 2022-08-17 15:18 | NUR ---
PD RN TO PT RM MED 304 AT APPROX 1500 TO PRIME MACHINE AND SET UP CCPD NIGHT TX. INITIAL DRAIN STARTED AT 1525. PT BED AT LOWEST LEVEL, CALL LIGHT IN REACH, BED SIDE RN NOTIFIED.
--- NOTE | 2022-08-17 17:55 | NUR ---
SHIFT SUMMARY NO ACUTE CHANGES DURING SHIFT. PT ALERT AND ORIENTED, CALLS APPROPRIATELY. PT REMAINS ON RA, INDEPENDENT IN ROOM. PD STARTED THIS AFTERNOON. ELECTROLYTE REPLACEMENT COMPLETED THIS AM. NO C/O PAIN, STILL INTERMITTENT NAUSEA. WILL CONTINUE TO MONITOR. CALL LIGHT WITHIN REACH.
[2022-08-18 05:33] LABS: BASOPHILS ABSOLUTE AUTO 0.07 K/mm3 (0.00-0.23); BASOPHILS PERCENT AUTO 1 % (0-2); EOSINOPHILS ABSOLUTE AUTO 0.37 K/mm3 (0.00-0.68); EOSINOPHILS PERCENT AUTO 4 % (0-6); Hematocrit 27.6 % (37.0-53.0); Hemoglobin 9.3 g/dL (13.5-17.5); IMMATURE GRAN ABSOLUTE AUTO 0.04 K/mm3 (0.00-0.10); IMMATURE GRAN PERCENT AUTO 0 % (0-1); LYMPHOCYTES ABSOLUTE AUTO 1.17 K/mm3 (0.84-5.20); LYMPHOCYTES PERCENT AUTO 12 % (21-46); MONOCYTES ABSOLUTE AUTO 0.96 K/mm3 (0.16-1.47); MONOCYTES PERCENT AUTO 10 % (4-13); Mean Corpuscular HGB 30.3 pg (26.0-34.0); Mean Corpuscular HGB Conc 33.7 g/dL (31.5-36.5); Mean Corpuscular Volume 90 fL (80-100); Mean Platelet Volume 8.8 fL (9.1-12.4); NEUTROPHILS ABSOLUTE AUTO 7.19 K/mm3 (1.96-9.15); NEUTROPHILS PERCENT AUTO 73 % (41-73); Platelet Count 402 K/mm3 (150-400); RDW Coefficient Variation 14.4 % (11.7-14.2); RDW Standard Deviation 45.8 fL (35.1-46.3); Red Blood Cell Count 3.07 M/mm3 (4.30-5.90)
[2022-08-18 05:59] LABS: Magnesium, Blood 2.5 mg/dL (1.6-2.4)
--- NOTE | 2022-08-18 06:29 | NUR ---
SHIFT SUMMARY PT A&O X 4, PT LAYING IN BED WITH EYES CLOSED DURING BEDSIDE ROUNDS, NO S/S DISTRESS/PAIN, PERITONEAL DIALYSIS IN PLACE-PT VOMITTED ONCE IN NIGHT- PT DENIED MEDICATIONS AND STATED, "NONE OF IT WORKS"- OFFERED TO CALL AND ASK ABOUT DIFFERENT MEDS- PT DENIED WANTING ANY OTHER MEDS- BED LOW POSITION, CALL LIGHT WITHIN REACH, PT INDEPENDENT IN ROOM
[2022-08-18 06:40] LABS: Albumin, Blood 2.8 g/dL (3.4-5.0); Anion Gap 13 mmol/L (6-16); Blood Urea Nitrogen 71 mg/dL (8-24); CO2, Blood 23 mmol/L (21-32); Chloride, Blood 106 mmol/L (98-108); Glucose, Blood 71 mg/dL (70-99); Potassium, Blood 3.1 mmol/L (3.5-5.5); Sodium, Blood 142 mmol/L (136-145)
[2022-08-18 06:44] LABS: Bun/Creatinine Ratio 3.8 (12.0-20.0); Glomerular Filtration Rate 3 (60-); Phosphorus, Blood 9.6 mg/dL (2.5-4.9)
--- NOTE | 2022-08-18 11:23 | NUR ---
CONTINUED NAUSEA AND EMESIS: PATIENT REQUESTED ZOFRAN ODT THIS AM. PATIENT VOMITED SOON THE MEDICATION WAS IN HIS MOUTH. PATIENT DENIED NEED FOR FURTHER INTERVENTION TO TREAT THE NAUSEA AND EMESIS. PATIENT CONTINUED TO HAVE MULTIPLE EMESIS THIS MORNING. PATIENT FINALLY WILLING TO RECEIVE ADDITIONAL MEDICATION TO ASSIST. PATIENT IS NOW LYING ON HIS SIDE. HE REPORTS NAUSEA, BUT REPORTS A REPRIEVE FROM THE EMESIS. HOWEVER, HIS EMESIS WAS DARK BROWN WITH RED TINGES. THIS MORNING IT WAS BILE GREEN. DISCUSSED WITH DR. SHERMAN. NEW ORDERS ENTERED.
[2022-08-18 14:04] LABS: Hematocrit 31.4 % (37.0-53.0); Hemoglobin 10.5 g/dL (13.5-17.5)
--- NOTE | 2022-08-18 16:43 | NUR ---
PD RN TO PT RM [id number] AT APPROX 1545 TO STRIP MACHINE AND SET UP FOR CCPD NIGHT TREATMENT. PT WAS RESTING WHEN I CAME IN THE ROOM, HE HAD A VISTOR AT HIS BEDSIDE. AFTER CONNECTING AND PRIMING HIS MACHINE HE RESQUESTED TO TAKE A CHOWER BEFORE BEING CONENCT SO I AGREED AND LEFT AT 1615 AND RETURNED AT 1645 TO CONNECT HIS TREATMENT TO HIS PD CATHETER.
--- NOTE | 2022-08-18 19:24 | NUR ---
END OF SHIFT SUMMARY: PATIENT NAUSEATED AND VOMITING THROUGHOUT THE MORNING OF THE SHIFT. EMESIS TRANSITIONED FROM A BILE GREEN TO A DARK BROWN WITH REDDISH TINGES. SEE NURSE'S NOTE. BY THE AFTERNOON, ABLE TO GET THE NAUSEA UNDER CONTROL WITH NEW PRN PHENERGHAN. PATIENT ABLE TO SLEEP, TAKE A SHOWER, AND EAT ICE CHIPS WITHOUT NAUSEA OR VOMITING. PATIENT REPORTED ABDOMINAL PAIN WITH EMESIS, BUT REPORTED THAT OVERALL IT IS IMPROVED. PATIENT UP IN THE ROOM INDEPENDENTLY. PATIENT DENIES DIZZINESS OR SHORTNESS OF BREATH WITH ACTIVITY. SCOURING MACHINE TENDER IN THE ROOM MULTIPLE TIMES DURING THE DAY TO END AND START PERITONEAL TREATMENT. ABDOMINAL DRESSING CHANGED THIS AFTERNOON. SURROUNDING SKIN IS FREE FROM REDNESS, IRRITATION, OR INFLAMMATION.
[2022-08-19 04:49] LABS: Hematocrit 28.1 % (37.0-53.0); Hemoglobin 9.4 g/dL (13.5-17.5)
[2022-08-19 05:21] LABS: Magnesium, Blood 2.2 mg/dL (1.6-2.4)
--- NOTE | 2022-08-19 05:26 | NUR ---
PATIENT IS ALERT AN DORIENTED X4, CALM AND COOPERATIVE WITH CARE. PERITONEAL DIALYSIS CONTINUED THROUGH THE NIGHT WIHTOUT ALRMS. HTN TREATED WITH PRN'S. IV SITES WNL. NO PAIN, N/V/D. REFUSED HS LONG ACTING SINCE HE IS NOT CONSUMING MUCH, STATES THAT IS WHAT HE WOULD DO AT HOME. ADVANCED TO CLEARS WITHOUT ISSUE. WILL CONT TO MONITOR.
[2022-08-19 05:41] LABS: Albumin, Blood 2.7 g/dL (3.4-5.0); Anion Gap 12 mmol/L (6-16); Blood Urea Nitrogen 70 mg/dL (8-24); Bun/Creatinine Ratio 3.9 (12.0-20.0); CO2, Blood 24 mmol/L (21-32); Chloride, Blood 105 mmol/L (98-108); Glomerular Filtration Rate 3 (60-); Glucose, Blood 123 mg/dL (70-99); Phosphorus, Blood 8.2 mg/dL (2.5-4.9); Potassium, Blood 3.1 mmol/L (3.5-5.5); Sodium, Blood 141 mmol/L (136-145)
--- NOTE | 2022-08-19 09:27 | NUR ---
PD RN TO PT RM MED 304 AT APPROX 0900AM TO D/C CCPD NIGHT TREATMENT. PT WAS SITTING ON SIDE OF BED LOOKING AT PHONE. APPEARS COMFORTABLE, SAID HE IS FEELING BETTER AND MAY GO HOME TODAY. I DRAIN 524 ML TOTAL UF 1168 LOST DWELL WAS 1:36. PD RN LEFT PT WITH CALL LIGHT IN REACH AND NOTIFIED BEDSIDE RN.
--- NOTE | 2022-08-19 13:02 | NUR ---
Patient doing well this morning, denies nausea and pain. MD assessed pt at bedside, and placed discharge orders. Removed IV. Reviewed discharge teaching. Pt left unit at 1100.
== END 2022-08-19 10:45 | disposition home or self-care (01) | DRG 371 ==
LOC: MEDS 10:33
PROVIDERS: Internal Medicine Nephrology; ADMIT Family Medicine
PROC: 3E1M39Z Irrigation of Peritoneal Cavity using Dialysate, Percutaneous Approach (ICD-10-PCS; principal; 2022-08-16)
DX: K65.2 Spontaneous bacterial peritonitis (principal); N18.6 End stage renal disease; E87.1 Hypo-osmolality and hyponatremia; I12.0 Hypertensive chronic kidney disease with stage 5 chronic kidney disease or end stage renal disease; K56.7 Ileus, unspecified; K50.90 Crohn's disease, unspecified, without complications; N25.81 Secondary hyperparathyroidism of renal origin; E87.20 Acidosis, unspecified; R74.8 Abnormal levels of other serum enzymes; E11.22 Type 2 diabetes mellitus with diabetic chronic kidney disease; E86.9 Volume depletion, unspecified; E87.6 Hypokalemia; D75.839 Thrombocytosis, unspecified; D63.1 Anemia in chronic kidney disease; E83.39 Other disorders of phosphorus metabolism; E88.09 Other disorders of plasma-protein metabolism, not elsewhere classified; E87.70 Fluid overload, unspecified; Z95.828 Presence of other vascular implants and grafts; Z79.899 Other long term (current) drug therapy; Z79.891 Long term (current) use of opiate analgesic; Z87.891 Personal history of nicotine dependence; Z79.4 Long term (current) use of insulin; Z99.2 Dependence on renal dialysis
CPT/HCPCS: 36415; 74018; 80048; 80069; 82271; 82272; 82947; 83735; 85014; 85018; 85025; 89051; A9270; C9113; J0360; J0690; J0696; J0713; J0881; J1644; J1815; J2060; J2405; J2550; J2765; J3480; J7050

== ENCOUNTER 2022-10-29 15:21 | Inpatient (IN) | payer OTHER ==
[~2022-10-29] VITALS: Ht 160 cm; Wt 63.6 kg
[~2022-10-29 15:21] MED LIST changes: +BASAGLAR K100 UNIT/8 SC; +BUME2 PO; +CALCIUM ACETAT667 M2 PO; +METO25ER PO; +MIDO5 PO; +NOVOLOG100 UNIT/2 SC; +ONDA4 PO; +SEVEC800 PO; +Tessalon200 MG PO
[2022-10-29 15:51] LABS: BASOPHILS ABSOLUTE AUTO 0.09 K/mm3 (0.00-0.23); BASOPHILS PERCENT AUTO 1 % (0-2); EOSINOPHILS ABSOLUTE AUTO 0.12 K/mm3 (0.00-0.68); EOSINOPHILS PERCENT AUTO 1 % (0-6); Hematocrit 36.5 % (37.0-53.0); Hemoglobin 12.6 g/dL (13.5-17.5); IMMATURE GRAN ABSOLUTE AUTO 0.04 K/mm3 (0.00-0.10); IMMATURE GRAN PERCENT AUTO 0 % (0-1); LYMPHOCYTES ABSOLUTE AUTO 0.96 K/mm3 (0.84-5.20); LYMPHOCYTES PERCENT AUTO 9 % (21-46); MONOCYTES ABSOLUTE AUTO 0.45 K/mm3 (0.16-1.47); MONOCYTES PERCENT AUTO 4 % (4-13); Mean Corpuscular HGB 29.9 pg (26.0-34.0); Mean Corpuscular HGB Conc 34.5 g/dL (31.5-36.5); Mean Corpuscular Volume 87 fL (80-100); Mean Platelet Volume 9.3 fL (9.1-12.4); NEUTROPHILS ABSOLUTE AUTO 9.44 K/mm3 (1.96-9.15); NEUTROPHILS PERCENT AUTO 85 % (41-73); Platelet Count 325 K/mm3 (150-400); RDW Standard Deviation 41.2 fL (35.1-46.3); Red Blood Cell Count 4.22 M/mm3 (4.30-5.90)
[2022-10-29 16:22] LABS: Albumin, Blood 3.5 g/dL (3.4-5.0); Albumin/Globulin Ratio 0.9 (0.8-1.8); Bilirubin, Total 0.5 mg/dL (0.1-1.0); Bun/Creatinine Ratio 3.9 (12.0-20.0); Calcium, Blood 6.8 mg/dL (8.5-10.1); Creatinine, Blood 25.9 mg/dL (0.60-1.20); Potassium, Blood 3.7 mmol/L (3.5-5.5); Total Protein, Blood 7.5 g/dL (6.4-8.2)
[2022-10-29 17:44] LABS: Source, Urine Clean Catch
[2022-10-29 18:00] LABS: Appearance, Urine Hazy (Clear); Bilirubin, Urine Neg (Neg); Blood, Urine 2+ (Neg); Color, Urine Yellow (P-Yellow); Glucose Qualitative, Urine 2+ (Neg); Ketones, Urine Neg (Neg); Leukocyte Esterase, Urine Neg (Neg); Nitrite, Urine Neg (Neg); Protein, Urine 4+ (Neg); Specific Gravity, Urine 1.015 (1.003-1.022); Urobilinogen, Urine NORM (Normal)
[2022-10-29 18:29] LABS: Squamous Epithelial Cells Not Seen /hpf (Few)
[2022-10-29 18:30] LABS: Bacteria Few /hpf
[2022-10-29 18:55] LABS: Base Excess Venous -10.4 mmol/L; Bicarbonate Venous 16.7 mmol/L (24.0-30.0); PCO2 Venous 37.8 mmHg (38-42)
[2022-10-29 18:57] LABS: pH Blood Venous 7.26 (7.34-7.37)
[2022-10-29 19:36] LABS: Influenza A, PCR NEGATIVE (NEGATIVE); Influenza B, PCR NEGATIVE (NEGATIVE); Resp Syncytial Virus, PCR NEGATIVE (NEGATIVE); SARS-Cov-2 (COVID-19) PCR, MMC NEGATIVE (NEGATIVE)
[2022-10-29 21:39] VITALS: BP 146/73
[2022-10-29 23:00] VITALS: BP 163/77
[2022-10-29 23:30] VITALS: BP 181/90
--- NOTE | 2022-10-29 23:48 | NUR ---
PD DIALYSIS: CALLED IN THAT PT IS IN THE ER, RECIEVED V.O FROM DR CRONIN FOR TX, IN AND OUT FLUSHES AND LAB COLLECTION SAMPLE. PATIENT ADMITTED TO PCU ROOM. ATTEMPTED COLLECTING EFFLUENT, NO SAMPLE COLLECTED, DWELLING DIALYSATE FOR TWO HOURS BEFORE COLLECTION.
[2022-10-30] VITALS (31 sets, daily range): BP systolic 100–207; BP diastolic 66–107
[2022-10-30 02:18] LABS: Body Fluid WBC Count 320 /mm3 (0-999)
[2022-10-30 02:25] LABS: RBC Count, Body Fluid 1 /mm3 (0-0)
[2022-10-30 02:53] LABS: Appearance, Body Fluid Clear (Clear); Color, Body Fluid No color (None-Yellow); Total Cell Count, Body Fluid 100
[2022-10-30 03:49] LABS: pH, Body Fluid 7.3
[2022-10-30 03:58] LABS: Albumin, Body Fluid 0.1 g/dL; Lactate Dehydrogenase, Body Fl 43 U/L; Protein, Body Fluid 0.3 g/dL; Triglycerides, Body Fluid 4 mg/dL
[2022-10-30 04:03] LABS: BASOPHILS ABSOLUTE AUTO 0.03 K/mm3 (0.00-0.23); BASOPHILS PERCENT AUTO 0 % (0-2); EOSINOPHILS PERCENT AUTO 0 % (0-6); Hematocrit 30.9 % (37.0-53.0); Hemoglobin 10.7 g/dL (13.5-17.5); IMMATURE GRAN ABSOLUTE AUTO 0.08 K/mm3 (0.00-0.10); IMMATURE GRAN PERCENT AUTO 1 % (0-1); LYMPHOCYTES ABSOLUTE AUTO 0.79 K/mm3 (0.84-5.20); LYMPHOCYTES PERCENT AUTO 7 % (21-46); MONOCYTES ABSOLUTE AUTO 0.57 K/mm3 (0.16-1.47); MONOCYTES PERCENT AUTO 5 % (4-13); Mean Corpuscular HGB 29.6 pg (26.0-34.0); Mean Corpuscular HGB Conc 34.6 g/dL (31.5-36.5); Mean Corpuscular Volume 86 fL (80-100); Mean Platelet Volume 9.5 fL (9.1-12.4); NEUTROPHILS PERCENT AUTO 88 % (41-73); Platelet Count 284 K/mm3 (150-400); RDW Standard Deviation 40.4 fL (35.1-46.3); Red Blood Cell Count 3.61 M/mm3 (4.30-5.90); White Blood Cell Count 11.87 K/mm3 (4.00-11.30)
[2022-10-30 04:03] LABS: Glucose, Body Fluid 540 mg/dL
[2022-10-30 04:35] LABS: Magnesium, Blood 2.8 mg/dL (1.6-2.4)
--- NOTE | 2022-10-30 04:47 | NUR ---
COMMERCIAL CONSTRUCTION ESTIMATOR SUMMARY ASSUMED CARE OF THE PT LAST NIGHT ON ADMISSION FROM THE ED. PT IS ALERT AND ORIENTED X4, PLEASANT AND COOPERATIVE. PT HAS HAD MANY EPISODES OF VOMITING. PT APPEARS TO BE SLEEPING ON AND OFF, WITH HIS NAUSEA RETURNING WHEN HE IS WOKEN UP AND RESOLVING WHEN HE FALLS ASLEEP. PT MEDICATED X2 FOR NAUSEA AND X1 FOR PAIN. DR CRONIN SAW THE PT AND IS MONITORING KIDNEY FUNCTION. PT HAS BEEN ON PERITONEAL DIALYSIS SINCE 0100 THIS AM. BP HAS BEEN VARIABLE SO THIS RN HAS NOT TREATED HYPERTENSION. SINUS ON TELE. PT CURRENTLY RESTING. CONSULT FOR GI ORDERED.
[2022-10-30 05:01] LABS: Albumin/Globulin Ratio 0.9 (0.8-1.8); Bilirubin, Total 0.5 mg/dL (0.1-1.0); Bun/Creatinine Ratio 3.9 (12.0-20.0); Calcium, Blood 6.2 mg/dL (8.5-10.1); Creatinine, Blood 23.4 mg/dL (0.60-1.20); Globulin, Blood 3.4 g/dL (2.2-4.0); Potassium, Blood 3.3 mmol/L (3.5-5.5); Total Protein, Blood 6.4 g/dL (6.4-8.2)
--- NOTE | 2022-10-30 05:51 | NUR ---
CONTACTED DR CRONIN REGARDING MORNING LABS. PER DR CRONIN, LABS TO BE REPEATED AFTER PERITONEAL DIALYSIS IS COMPLETED AROUND 1100 AND CONTACT HIM WITH RESULTS.
--- NOTE | 2022-10-30 09:39 | NUR ---
SHIFT ASSESSMENT ASSUMED CARE OF PT @ 0700, BS REPORT RECEIVED FROM RAYSA OLIVIER. PT SLEEPING BUT EASILY WAKENS TO VERBAL STIMULI. A&OX4, FOLLOWING COMMANDS, WEEKS. C/O INTERMITTENT NAUSEA, NONE AT THIS TIME. DENIES ABD PAIN AT REST, MILD GENERALIZED ABD PAIN WITH PALPATION. PT RECEIVING PD NOW. ATTEMPTED TO MEDICATE PT WITH GLARGINE BUT PT REFUSED, STATED ONCE AGAIN THAT HIS GLUCOSE IS ALWAYS ELEVATED DURING DIALYSIS THEN CRASHES AFTER. THIS NURSE EDUCATED PT OF THE NEED FOR INSULIN BUT PT CONTINUES TO REFUSE UNTIL DIALYSIS IS COMPLETE. ON-CALL GI DR CONSULTED FOR POSSIBLE GI BLEED, MONITORING CLOSELY AT THIS TIME. NO S/S OF BLEED SINCE THIS NURSE HAS TAKEN OVER CARE.
[2022-10-30 11:25] LABS: Hematocrit 32.6 % (37.0-53.0); Hemoglobin 11.5 g/dL (13.5-17.5)
[2022-10-30 11:52] LABS: Magnesium, Blood 2.8 mg/dL (1.6-2.4)
[2022-10-30 12:26] LABS: Albumin, Blood 3.2 g/dL (3.4-5.0); Anion Gap 20 mmol/L (6-16); Blood Urea Nitrogen 84 mg/dL (8-24); Bun/Creatinine Ratio 3.9 (12.0-20.0); CO2, Blood 22 mmol/L (21-32); Calcium, Blood 6.4 mg/dL (8.5-10.1); Chloride, Blood 98 mmol/L (98-108); Glomerular Filtration Rate 2 (60-); Glucose, Blood 280 mg/dL (70-99); Potassium, Blood 3.4 mmol/L (3.5-5.5); Sodium, Blood 140 mmol/L (136-145)
--- NOTE | 2022-10-30 12:34 | NUR ---
TO PCU 12 FOR PD TX DISCONTINUE. PT VOMITING, SO AT BEDSIDE. HOSPITALIST AT BEDSIDE. TX DISCONTINUED ASEPTICALLY PER MD ORDERS. QUESTIONS ANSWERED. PT TO CONTINUE TX THIS EVENING. ABX ORDERS RECEIVED FROM EDWIGE PANDA WRITTEN AND SENT TO PHARMACY. PT LEFT IN STABLE CONDITION. CHET
--- NOTE | 2022-10-30 16:26 | NUR ---
10/30/22 1626 Maris Kerns History, Chart, Medications and Allergies reviewed before start of procedure. 3-LEAD EKG REVIEWED WITH PHYSICIAN PRIOR TO START OF PROCEDURE. MONITOR INTACT WITH CONTINUOUS PULSE OXIMETRY, CONTINUOUS END TITAL CO2, AND INTERMITTENT BLOOD PRESSURE.
--- NOTE | 2022-10-30 17:44 | NUR ---
SHIFT SUMMARY PT REMAINS A&OX4. ENDOSCOPY COMPLETED THIS AFTERNOON, SEE CHART. PT WITH INTERMITTENT N/V T/O DAY, NO S/S OF BLEEDING. MEDICATED X 1 c PRN ANTIHYPERTENSIVES. SCHEDULED FOR DAILY PD TONIGHT. NO OTHER ACUTE CHANGES TODAY.
--- NOTE | 2022-10-30 20:13 | NUR ---
DIALYSIS: PD NOTE To PCU 12 for PD In and Out flushes and start of CCPD overnight treatment. Patient is alert and oriented x4, complaints of N/V primary nurse notified. CCPD cylcer set per orders using aseptic technique. Patient to run 9 hours with 4 exchanges and last fill of 2000 ml with Vanco 3mg and Gentamycin 80mg. Dwell time of 109 mins. PD catheter dressing cahnged with no sign or symptoms of infection noted. Patient connected to cycler and treatment started, running without problems. Report given to primary RN.
[2022-10-31] VITALS (9 sets, daily range): BP systolic 121–173; BP diastolic 75–101
[2022-10-31 03:46] LABS: BASOPHILS ABSOLUTE AUTO 0.11 K/mm3 (0.00-0.23); BASOPHILS PERCENT AUTO 1 % (0-2); EOSINOPHILS ABSOLUTE AUTO 0.14 K/mm3 (0.00-0.68); EOSINOPHILS PERCENT AUTO 1 % (0-6); Hematocrit 30.5 % (37.0-53.0); Hemoglobin 10.7 g/dL (13.5-17.5); IMMATURE GRAN ABSOLUTE AUTO 0.01 K/mm3 (0.00-0.10); IMMATURE GRAN PERCENT AUTO 0 % (0-1); LYMPHOCYTES ABSOLUTE AUTO 1.88 K/mm3 (0.84-5.20); LYMPHOCYTES PERCENT AUTO 19 % (21-46); MONOCYTES ABSOLUTE AUTO 0.85 K/mm3 (0.16-1.47); MONOCYTES PERCENT AUTO 9 % (4-13); Mean Corpuscular HGB 29.8 pg (26.0-34.0); Mean Corpuscular HGB Conc 35.1 g/dL (31.5-36.5); Mean Corpuscular Volume 85 fL (80-100); Mean Platelet Volume 9.3 fL (9.1-12.4); NEUTROPHILS ABSOLUTE AUTO 6.88 K/mm3 (1.96-9.15); NEUTROPHILS PERCENT AUTO 70 % (41-73); Platelet Count 288 K/mm3 (150-400); RDW Coefficient Variation 12.9 % (11.7-14.2); RDW Standard Deviation 40.1 fL (35.1-46.3); Red Blood Cell Count 3.59 M/mm3 (4.30-5.90); White Blood Cell Count 9.87 K/mm3 (4.00-11.30)
[2022-10-31 04:11] LABS: Magnesium, Blood 2.7 mg/dL (1.6-2.4)
[2022-10-31 05:09] LABS: Albumin, Blood 2.9 g/dL (3.4-5.0); Anion Gap 19 mmol/L (6-16); Blood Urea Nitrogen 78 mg/dL (8-24); Bun/Creatinine Ratio 3.6 (12.0-20.0); CO2, Blood 22 mmol/L (21-32); Calcium, Blood 6.4 mg/dL (8.5-10.1); Chloride, Blood 99 mmol/L (98-108); Glomerular Filtration Rate 2 (60-); Glucose, Blood 159 mg/dL (70-99); Phosphorus, Blood 13.1 mg/dL (2.5-4.9); Sodium, Blood 140 mmol/L (136-145)
--- NOTE | 2022-10-31 05:11 | NUR ---
END OF SHIFT: PATIENT IMPROVED N/V WITH PHENERGAN SUPPOSITORY, HAS BEEN SLEEPING WELL, PD DIALYSIS STILL RUNNING. CHANGE MANAGEMENT COORDINATOR RAY CHANGE MANAGEMENT COORDINATOR FIELD ACCOUNT MANAGER. PATIENT TOLERATING WELL DENIES CHEST PAIN PRESSURE OR SOB. ON RA SP2>95%. PATIENT HAS BEEN COOPERATIVE WITH CARE ALERT AND ORINETED, HAV EBEEN HOLDING INSULIN DUE TO N/V. WILL RECOMMEND BASAL INSULIN IN THE AM. PATIENT HAS FUENTES CONCERNS, CRITICAL LABS PLEASE SEE. MOST LABS IMPROVING.
[2022-10-31 07:59] LABS: Gentamicin, Random 0.7 ug/Ml
[2022-10-31 09:34] LABS: Automated BF WBC Count 0.005 K/mm3 (0-999)
[2022-10-31 09:36] LABS: Body Fluid WBC Count 5 /mm3 (0-999)
[2022-10-31 10:37] LABS: RBC Count, Body Fluid 1 /mm3 (0-0)
[2022-10-31 11:01] LABS: Color, Body Fluid No color (None-Yellow); Total Cell Count, Body Fluid 25
[2022-10-31 11:02] LABS: Appearance, Body Fluid Clear (Clear)
--- NOTE | 2022-10-31 11:35 | NUR ---
DIALYSIS - PD PT VERY SLEEPY. ROUSES THOUGH. TX DC'ED PER PROTOCDEVANTE. ID 2. UF [id number] ML. SITE CLEAR. SAMPLE BAG DRAWN FOR CELL CT, HAND CARRIED TO LAB.
--- NOTE | 2022-10-31 14:46 | NUR ---
UPDATE/PT TRANSFER PT ABLE TO TOLERATE SMALL AMOUNT OF BREAKFAST THIS AM. PT BEGAN VOMITING SHORTLY AFTER LUNCH. REMAINS ON CLEAR LIQUID DIET. PT MEDICATED WITH ZOFRAN, RELIEF AFTER MEDICATED. PT HYPERTENSIVE, MEDICATED WITH PRN MEDS. REPORT GIVEN TO TANK Robert RN. PT BROUGHT TO ROOM WITH ALL BELONGINGS BY THIS RN AND PT'S . PRIOR TO ROOM DEPARTURE PT BEGAN TO HAVE N/V. PT OFFERED PHENERGAN SUP. PT DECLINED AND DID NOT WANT MEDICATED AT THIS TIME.
--- NOTE | 2022-10-31 18:53 | NUR ---
SHIFT SUMMARY 1440 RECEIVED PT TO RM 313 FROM PCU 12. PT ADMITTED FOR N/V, CURRENTLY ON CL DIET, BUT NOT TOLERATING WELL. PER REPORT, PT WAS ABLE TO EAT JELLO AND DRINK SOME JUICE TODAY, BUT CAME TO VOMITING. PT DECLINED NAUSEA MEDICATION AT THAT TIME. PT ABLE TO SLEEP FOR A WHILE, BUT SITTING UP TO EOB AT DINNER VOMITING AGAIN. ZOFRAN OBTAINED, BUT PT DECLINED AT THIS TIME. PERITONEAL DIALYSIS STARTED IN BY WATER QUALITY CONTROL ENGINEER. PT AWARE OF MACHINES FUNCTION, HE DOES PD AT HOME WELL. IV ABX INFUSING AT THIS TIME. HX OF HTN, DM, ESRD. EGD DONE YESTERDAY, FINDING ESOPHOGITIS. PT RESTING QUIETLY AT THIS TIME. CALL LT IN REACH.
--- NOTE | 2022-10-31 19:08 | NUR ---
DIALYSIS-PD PT VOMITING WHEN I ENTERED THE ROOM. HE APPEARS VERY TIRED. AFTER PRIMING MACHINE, I CONNECTED THE PT TO THE TX PER PROTOCAL. HAS ANTIBIOTICS IN LAST FILL. INSTRUCTED THE RN TO CALL ME IF IT ALARMS.
[2022-11-01 04:50] VITALS: BP 158/92
[2022-11-01 05:04] LABS: Hematocrit 31.9 % (37.0-53.0); Hemoglobin 11.1 g/dL (13.5-17.5); Mean Corpuscular HGB Conc 34.8 g/dL (31.5-36.5); Mean Corpuscular Volume 86 fL (80-100); Mean Platelet Volume 9.2 fL (9.1-12.4); Platelet Count 281 K/mm3 (150-400); White Blood Cell Count 8.44 K/mm3 (4.00-11.30)
--- NOTE | 2022-11-01 05:13 | NUR ---
SHIFT SUMMARY PT A&OX4, AND COOPERATIVE WITH CARE. NO ACUTE CHANGES, VSS. RESTED MAJORITY OF SHIFT. PO INTAKE REMAINS LITTLE, NO NAUSEA/VOMITING T/O SHIFT. PT SBA WITH PERITONEAL DIALYSIS LINES. DIALYSIS INFUSED T/O NIGHT, NO ISSUES/ALARMS. CALLS APPROPRIATELY, CALL LIGHT WITHIN REACH.
[2022-11-01 05:38] LABS: Magnesium, Blood 2.2 mg/dL (1.6-2.4)
[2022-11-01 06:11] LABS: Albumin, Blood 2.8 g/dL (3.4-5.0); Anion Gap 16 mmol/L (6-16); Blood Urea Nitrogen 59 mg/dL (8-24); CO2, Blood 23 mmol/L (21-32); Calcium, Blood 6.8 mg/dL (8.5-10.1); Chloride, Blood 99 mmol/L (98-108); Glucose, Blood 199 mg/dL (70-99); Potassium, Blood 2.9 mmol/L (3.5-5.5); Sodium, Blood 138 mmol/L (136-145)
[2022-11-01 06:24] LABS: Glomerular Filtration Rate 3 (60-); Phosphorus, Blood 8.3 mg/dL (2.5-4.9)
[2022-11-01 07:39] VITALS: BP 136/84
[2022-11-01 08:16] LABS: Gentamicin, Random 2.6 ug/Ml
[2022-11-01 08:37] LABS: Vancomycin, Random 54.3 ug/mL
--- NOTE | 2022-11-01 08:39 | NUR ---
DIALYSIS -PD PT VOMITING WHEN I ENTERED THE ROOM. DC'D PD TX PER PROTOCAL. ID [id number] ML. UF [id number] ML. CLEAR FLUID. SITE CLEAR. GAVE PT A DRESSING IN CASE HE SHOWERS.
--- NOTE | 2022-11-01 15:32 | NUR ---
SERUM POTASSIUM LEVEL DRAWN, RESULT IS 3.5. REPORTED TO DR. CRONIN BY PHONE AT 0510, TELEPHONE ORDER RECEIVED FOR KCL 10 MEQ X 1.
[2022-11-01 15:50] VITALS: BP 166/103
--- NOTE | 2022-11-01 18:13 | NUR ---
SHIFT SUMMARY: PATIENT VOMITED OFF AND ON ALL DAY, REFUSED ANTIEMETICS UNTIL ~1800 WHEN HE AGREED TO PHENERGEN SUPPOSITORY. ALSO REFUSED SS INSULIN AND AMPHO GEL. TOTAL OF 50 MEQ OF KCL GIVEN. IV ABX DISCONTINUED. DENIED PAIN. ADVANCED TO FULL LIQ DIET. HOPING TO GO HOME TOMORROW.
[2022-11-01 18:16] VITALS: BP 159/90
--- NOTE | 2022-11-01 19:41 | NUR ---
DIALYSIS- PD PT STILL NOT FEELING WELL. NO SALTY OR JAMES THIS TX. CONNECTED AT 1920 PER PROTOCAL.
[2022-11-01 19:49] VITALS: BP 167/97
[2022-11-02 06:41] LABS: Hematocrit 31.7 % (37.0-53.0); Hemoglobin 10.9 g/dL (13.5-17.5)
[2022-11-02 06:43] VITALS: BP 140/70
--- NOTE | 2022-11-02 06:43 | NUR ---
SUMMARY: PT A/OX4, WAS PLEASANT AND COOPERATIVE W/CARE AND SLEPT MAJORITY OF NOCTE. HE REPORTED ADEQUATE NAUSEA RELIEF FOLLOWING NH PHENERGAN RECEIVED ON DAY SHIFT AND WASN'T OBSERVED TO HAVE ANY ADDITIONAL EMESIS. ZOFRAN WAS PROVIDED PROPHYLACTIC AT HS TO TOLERATE PO MEDS. HE WAS SELECTIVE WITH WHICH MEDS HE'D TAKE AND REFUSED LONG ACTING INSULIN D/T POOR PO INTAKE. SEE EMAR FOR DETAILS. CBG'S STABLE AND NO SHORT ACTING INSULIN REQUIRED. PERITONEAL DIALYSIS CATH PRESENT TO [facility] AND PD RECEIVED T/O NOCTE. NO ACUTE CHANGES, VSS/AFEBRILE. AM LABS PENDING. POSSIBLE D/C THIS AM. WCTM/REPORT TO DAY RN.
[2022-11-02 07:13] LABS: Albumin, Blood 2.8 g/dL (3.4-5.0); Anion Gap 15 mmol/L (6-16); Blood Urea Nitrogen 49 mg/dL (8-24); Bun/Creatinine Ratio 2.6 (12.0-20.0); CO2, Blood 24 mmol/L (21-32); Chloride, Blood 102 mmol/L (98-108); Glomerular Filtration Rate 3 (60-); Glucose, Blood 194 mg/dL (70-99); Phosphorus, Blood 7.6 mg/dL (2.5-4.9); Potassium, Blood 3.1 mmol/L (3.5-5.5); Sodium, Blood 141 mmol/L (136-145)
[2022-11-02 07:41] VITALS: BP 153/91
[2022-11-02 07:41] LABS: Gentamicin, Random 2.1 ug/Ml; Vancomycin, Random 62.4 ug/mL
[2022-11-02] MEDS ORDERED: PHENERGAN25 MG PR (12:41)
[2022-11-02] MEDS ORDERED: PANT40 PO (12:41)
[2022-11-02] MEDS ORDERED: SUCR1 PO (12:42)
[2022-11-02] MEDS ORDERED: HUMALOG KW100 UNIT/1 SC (12:45)
--- NOTE | 2022-11-02 13:13 | NUR ---
PATIENT DISCHARGED TO HOME ACCOMPANIED BY HIS . SALINE LOCK IV AND EXTENDED DWELL CATHETER REMOVED WITHOUT INCIDENT. VERBALIZED UNDERSTANDING OF D/C INSTRUCTIONS, HE WILL MAKE HIS OWN F/U APPOINTMENTS. OFF UNIT VIA W/C AT 1305. NO PERSONAL BELONGINGS LEFT BEHIND IN ROOM.
--- NOTE | 2022-11-02 14:01 | NUR ---
to room 313 for discontinuance of peritoneal dialysis. pt sitting on side of bed. he dcd his tx early this am. pt is ready to go home. questions answered. Dr Voss called regarding pt questions about abx. He is waiting for Vanco and Gent levels. pt states he feels much better and has no nausea this am. site is clean and clear. catheter is secure. no redness or drng noted. pt left in stable condition. elizabeth
== END 2022-11-02 13:06 | disposition home or self-care (01) | DRG 380 ==
LOC: ER 15:21 → PCU 20:54 → MEDS 20:54 → PCU 21:22 → MEDS 10-31 14:38 → ENPENDDIS 11-02 10:51 → MEDS 11-02 13:06
PROVIDERS: Emergency Medicine; Internal Medicine; Internal Medicine Gastroenterology; Internal Medicine Nephrology; Student in an Organized Health Care Education/Training Program; ADMIT Student in an Organized Health Care Education/Training Program
PROC: 0DB88ZX Excision of Small Intestine, Via Natural or Artificial Opening Endoscopic, Diagnostic (ICD-10-PCS; 2022-10-30)
PROC: 0DB68ZX Excision of Stomach, Via Natural or Artificial Opening Endoscopic, Diagnostic (ICD-10-PCS; 2022-10-30)
PROC: 3E1M39Z Irrigation of Peritoneal Cavity using Dialysate, Percutaneous Approach (ICD-10-PCS; 2022-10-30)
PROC: 0DB98ZX Excision of Duodenum, Via Natural or Artificial Opening Endoscopic, Diagnostic (ICD-10-PCS; principal; 2022-10-30 16:00)
DX: K22.10 Ulcer of esophagus without bleeding (principal); K65.9 Peritonitis, unspecified; N18.6 End stage renal disease; I12.0 Hypertensive chronic kidney disease with stage 5 chronic kidney disease or end stage renal disease; E87.20 Acidosis, unspecified; E11.22 Type 2 diabetes mellitus with diabetic chronic kidney disease; D63.1 Anemia in chronic kidney disease; E86.9 Volume depletion, unspecified; K29.70 Gastritis, unspecified, without bleeding; E11.43 Type 2 diabetes mellitus with diabetic autonomic (poly)neuropathy; K31.84 Gastroparesis; Z20.822 Contact with and (suspected) exposure to COVID-19; E87.6 Hypokalemia; E83.39 Other disorders of phosphorus metabolism; Z99.2 Dependence on renal dialysis; Z79.4 Long term (current) use of insulin; Z79.899 Other long term (current) drug therapy; Z87.891 Personal history of nicotine dependence; Z91.158 Patient's noncompliance with renal dialysis for other reason; Z98.890 Other specified postprocedural states; Z79.2 Long term (current) use of antibiotics; Z79.891 Long term (current) use of opiate analgesic
CPT/HCPCS: 0241U; 36415; 71045; 74177; 80053; 80069; 80170; 80202; 81001; 82042; 82271; 82803; 82945; 82947; 83605; 83615; 83690; 83735; 83986; 84100; 84132; 84157; 84478; 84484; 85014; 85018; 85025; 85027; 87040; 87070; 87086; 87205; 88305; 88342; 89051; 93005; 93010; 96374-59; 96375; 96376; 99285-25; A9270; C9113; J0360; J0881; J1170; J1580; J1644; J1815; J2270; J2405; J2543; J2704; J2765; J3370; J3480; J7030; J7050; Q9967

== ENCOUNTER 2022-12-14 10:56 | Observation (INO) | payer OTHER ==
[2022-12-14] VITALS (14 sets, daily range): BP systolic 84–167; BP diastolic 37–89
[~2022-12-14] VITALS: Ht 162.6 cm; Wt 69.5 kg
[~2022-12-14 10:56] MED LIST changes: +HUMALOG KW100 UNIT/1 SC; +PANT40 PO; +PHENERGAN25 MG PR; +SUCR1 PO
[2022-12-14 12:19] LABS: BASOPHILS ABSOLUTE AUTO 0.07 K/mm3 (0.00-0.23); BASOPHILS PERCENT AUTO 1 % (0-2); EOSINOPHILS ABSOLUTE AUTO 0.34 K/mm3 (0.00-0.68); EOSINOPHILS PERCENT AUTO 3 % (0-6); Hematocrit 28.4 % (37.0-53.0); Hemoglobin 9.8 g/dL (13.5-17.5); IMMATURE GRAN ABSOLUTE AUTO 0.05 K/mm3 (0.00-0.10); IMMATURE GRAN PERCENT AUTO 0 % (0-1); LYMPHOCYTES ABSOLUTE AUTO 1.28 K/mm3 (0.84-5.20); LYMPHOCYTES PERCENT AUTO 11 % (21-46); MONOCYTES ABSOLUTE AUTO 1.13 K/mm3 (0.16-1.47); MONOCYTES PERCENT AUTO 10 % (4-13); Mean Corpuscular HGB 29.3 pg (26.0-34.0); Mean Corpuscular HGB Conc 34.5 g/dL (31.5-36.5); Mean Corpuscular Volume 85 fL (80-100); Mean Platelet Volume 9.2 fL (9.1-12.4); NEUTROPHILS ABSOLUTE AUTO 8.85 K/mm3 (1.96-9.15); NEUTROPHILS PERCENT AUTO 76 % (41-73); Platelet Count 278 K/mm3 (150-400); RDW Coefficient Variation 13.2 % (11.7-14.2); RDW Standard Deviation 40.5 fL (35.1-46.3); Red Blood Cell Count 3.35 M/mm3 (4.30-5.90); White Blood Cell Count 11.72 K/mm3 (4.00-11.30)
[2022-12-14 12:29] LABS: International Normalized Ratio 0.94; Prothrombin Time Results 9.9 Sec (9.7-11.5)
[2022-12-14 12:54] LABS: Bun/Creatinine Ratio 5.3 (12.0-20.0); Creatinine, Blood 19.9 mg/dL (0.60-1.20); Potassium, Blood 6.2 mmol/L (3.5-5.5)
--- NOTE | 2022-12-14 13:31 | NUR ---
CRITICAL LABS CALLED TO ME RUSTY AND I PASSED THE RESULTS ONTO DR. CROFT. THIS IS A HOME HEMODIALYSIS PATIENT THAT WILL DO DIALYSIS TONIGHT PER HOME PROTOCOL. AWARE OF LAB RESULTS.
--- NOTE | 2022-12-14 17:12 | NUR ---
Patient arrived [facility] RU chest and was hepranized. He was tired but alert and oriented and able to communicate his needs. he was up to bathroom with walker shortly after and has pull up on.VSS. He is on RA and d-sats slightly while deep in sleep. Patient has 20 ga IV in RFA. MAEW but weak.
--- NOTE | 2022-12-14 19:15 | NUR ---
Patient has been up to bathroom with walker twice and is very nauseated and medicated per AUG. CBG 91 and gave apple juice. He has just left to Dialysis for tratment. patient has hepaticdiet in.
[2022-12-14 19:16] LABS: Bun/Creatinine Ratio 5.2 (12.0-20.0); Calcium, Blood 8.2 mg/dL (8.5-10.1); Creatinine, Blood 19.9 mg/dL (0.60-1.20)
[2022-12-15] VITALS (15 sets, daily range): BP systolic 116–176; BP diastolic 65–97
[2022-12-15 04:27] LABS: Hematocrit 21.7 % (37.0-53.0); Hemoglobin 7.3 g/dL (13.5-17.5); Mean Corpuscular HGB Conc 33.6 g/dL (31.5-36.5); Mean Corpuscular Volume 86 fL (80-100); Mean Platelet Volume 9.6 fL (9.1-12.4); Platelet Count 222 K/mm3 (150-400); RDW Coefficient Variation 13.1 % (11.7-14.2); RDW Standard Deviation 40.7 fL (35.1-46.3); Red Blood Cell Count 2.52 M/mm3 (4.30-5.90); White Blood Cell Count 6.61 K/mm3 (4.00-11.30)
[2022-12-15 05:02] LABS: Magnesium, Blood 2.3 mg/dL (1.6-2.4)
[2022-12-15 05:36] LABS: Albumin, Blood 2.2 g/dL (3.4-5.0); Anion Gap 7 mmol/L (6-16); Blood Urea Nitrogen 59 mg/dL (8-24); Bun/Creatinine Ratio 4.5 (12.0-20.0); CO2, Blood 27 mmol/L (21-32); Calcium, Blood 7.5 mg/dL (8.5-10.1); Chloride, Blood 106 mmol/L (98-108); Glomerular Filtration Rate 5 (60-); Glucose, Blood 136 mg/dL (70-99); Phosphorus, Blood 4.8 mg/dL (2.5-4.9); Potassium, Blood 4.8 mmol/L (3.5-5.5); Sodium, Blood 140 mmol/L (136-145)
--- NOTE | 2022-12-15 06:48 | NUR ---
SHIFT SUMMARY PATIENT ALERT AND ORIENTED X4. INDEPENDENT IN ROOM. RECEIVED FIRST HEMODIALYSIS LAST NIGHT, NO BLEEDING NOTED FROM PERMCATH SITE. PATIENT ON ROOM AIR, VITAL SIGNS STABLE. PATIENT'S LEFT UPPER ABDOMEN FIRM AND PAINFUL TO LIGHT TOUCH RIGH ABOVE HIS OLD PERITONEAL DIALYSIS SITE. BOWEL TONES PRESENT. MEDICATED PER EMAR FOR PAIN. PATIENT EDUCATED ON FIRE SAFETY AND IGNITION SOURCES IN THE HOSPITAL. WILL CONTINUE TO MONITOR. CALL LIGHT WITHIN REACH.
--- NOTE | 2022-12-15 10:33 | NUR ---
AM NOTE: PATIENT ALERT AND ORIENTED. VERY TIRED AND JUST WANTING TO SLEEP THIS AM. IND IN REPOSITIONING. PERRLA. DENIES NUMBNESS/TINGLING. ON ROOM AIR SATING MID 90'S. LUNGS SOUNDING CLEAR AND DIM IN BASES. EVEN AND UNLABORED BREATHING. DENIES SOB/COUGH. PATIENT EDUCATED ON FIRE RISK AND IGNITION SOURCES. TELE SHOWING SR/ST WITH HR 90-110'S. BP ELEVATED. DIALYSIS THIS AM. PO METOPROLOL HELD PER CONFERENCE MANAGER. DENIES CHEST PAIN/PRESSURE/PALPITATIONS. ABDOMIN SORE/TENDER TO TOUCH AT OLD PD SITE. RATING 7/10 PAIN. MEDICATED WITH TYLENOL PER EMAR. PATIENT STATES HIS ABDOMIN IS TO0 SORE TO EVEN SIT UP. UPON PALPATION OLD PD SITE FIRM AND WARM. DRESSING COVERING PD SITE C/D/I. BLOOD SUGAR CHECKS. PATIENT REFUSING LONG ACTING THIS AM. ADA/RENAL DIET. NEW PERMCATH TO RIGHT UPPER CHEST WALL. DENIES PAIN AT SITE. DRESSING C/D/I. DIALYSIS THIS AM.
--- NOTE | 2022-12-15 12:03 | NUR ---
DR. LANDRY TO BEDSIDE. POSSIBLE DC THIS AFTERNOON. THIS RN DISCUSSED VITALS, LABS AND PAIN AT OLD PD SITE WITH DR. LANDRY. PATIENT STATES HE HAS OUTPATIENT CHAIR SET UP AT [facility] IN [place]. THIS RN PLACED CALL AND SPOKE WITH BRYCE FROM [facility] TO CONFIRM. PATIENT SET UP FOR M,W,F DIALYSIS STARTING AT 6:30AM. [facility] CONFIRMED ALL LABS THAT ARE NEEDED. [place] FROM [facility] THEN CALLED PATIENT TO CONFIRM DIALYSIS ON TUESDAY AM. RAIL TRACK LAYER AND OFFICER CAPTAIN UPDATED.
[2022-12-15] MEDS ORDERED: METO5A PO (12:52)
[2022-12-15] MEDS ORDERED: CEPH500 PO (12:53)
[2022-12-15] MEDS ORDERED: LOKELMA10 GM PO (12:54)
--- NOTE | 2022-12-15 13:35 | NUR ---
DISCHARGE: NO ACUTE CHANGES SEE PREVIOUS NOTES. DISCHARGE INSTRUCTIONS INCLUDED DIAYLISIS SCHEDULE AND NEXT APPOINTMENT ON TUESDAY. FOLLOW UP APPOINTMENTS WITH DR. CRONIN, DR. CROFT AND DR. VERDUGO. NEW MEDICATIONS, LOKELMA AND ANTIBIOTIC TO [facility] AT [facility]. TO WATCH NEW PERM CATH AND OLD PD SITE FOR SIGNS AND SYMPTOMS INFECTION. PATIENT ABLE TO VERBALIZE ALL DISCHARGE EDUCATION BACK TO THIS RN. IV REMOVED. TELE RETURNED AND PATIENT LEFT UNIT VIA WHEELCHAIR WITH ALL PERSONAL BELONGINGS AND DISCHARGE PACKET.
[2023-01-26] MEDS ORDERED: ONDA4 PO (03:47)
[2023-01-26] MEDS ORDERED: SUCRALFATE1 GM/1015 PO (03:48)
[2023-01-26] MEDS ORDERED: PANTOPRAZOLE SO40 M2 PO (03:49)
[2023-01-26] MEDS ORDERED: MUPIROCIN2210 TOP (03:51)
== END 2022-12-15 13:33 | disposition home or self-care (01) ==
LOC: MHTC 10:56 → PCU 17:52 → MHTC 17:52 → PCU 17:52
PROVIDERS: Nurse Practitioner Acute Care; ADMIT Radiology Diagnostic Radiology
DX: I12.0 Hypertensive chronic kidney disease with stage 5 chronic kidney disease or end stage renal disease (principal); N18.6 End stage renal disease; Z99.2 Dependence on renal dialysis; E11.22 Type 2 diabetes mellitus with diabetic chronic kidney disease; E87.5 Hyperkalemia; D72.829 Elevated white blood cell count, unspecified; D63.1 Anemia in chronic kidney disease; E87.20 Acidosis, unspecified
CPT/HCPCS: 36415; 36558; 49422; 76937; 77001; 80048; 80069; 82947; 83735; 85025; 85027; 85610; 96372; 96374; 99152; 99153; A9270; C1750; C1769; C1894; G0257; G0378; J0690; J0881; J1644; J1815; J2250; J2405; J3010; J7040; J7050

== ENCOUNTER 2023-01-22 23:24 | Inpatient (IN) | payer OTHER ==
[~2023-01-22] VITALS: Ht 157.5 cm; Wt 63.9 kg
[~2023-01-22 23:24] MED LIST changes: +LOKELMA10 GM PO; +METO5A PO
[2023-01-22 23:53] LABS: Hematocrit 24.3 % (37.0-53.0); Hemoglobin 8.3 g/dL (13.5-17.5); Mean Corpuscular HGB 31.7 pg (26.0-34.0); Mean Corpuscular HGB Conc 34.2 g/dL (31.5-36.5); Mean Corpuscular Volume 93 fL (80-100); Platelet Count 230 K/mm3 (150-400); RDW Coefficient Variation 14.3 % (11.7-14.2); RDW Standard Deviation 47.7 fL (35.1-46.3); Red Blood Cell Count 2.62 M/mm3 (4.30-5.90); White Blood Cell Count 25.15 K/mm3 (4.00-11.30)
[2023-01-23] VITALS (30 sets, daily range): BP systolic 74–207; BP diastolic 46–84
[2023-01-23 00:18] LABS: Magnesium, Blood 2.3 mg/dL (1.6-2.4)
[2023-01-23 00:19] LABS: BAND PERCENT MAN 13 % (0-8); BASOPHILS ABSOLUTE MAN 0.25 K/mm3 (0.00-0.23); BASOPHILS PERCENT MAN 1 % (0-2); EOSINOPHILS PERCENT MAN 0 % (0-6); LYMPHOCYTES PERCENT MAN 2 % (21-46); METAMYELOCYTE ABSOLUTE MAN 0.25 K/mm3 (0.00-0.00); METAMYELOCYTE PERCENT MAN 1 % (0-0); MONOCYTES PERCENT MAN 2 % (4-13); NEUTROPHILS ABSOLUTE MAN 23.64 K/mm3 (1.96-9.15); SEG NEUTROPHILS PERCENT MAN 81 % (41-73); TOTAL CELLS COUNTED 100
[2023-01-23 00:22] LABS: Albumin, Blood 3.6 g/dL (3.4-5.0); Albumin/Globulin Ratio 0.9 (0.8-1.8); Bilirubin, Total 0.8 mg/dL (0.1-1.0); Bun/Creatinine Ratio 4.9 (12.0-20.0); Calcium, Blood 7.9 mg/dL (8.5-10.1); Creatinine, Blood 14.8 mg/dL (0.60-1.20); Globulin, Blood 4.1 g/dL (2.2-4.0); Potassium, Blood 4.3 mmol/L (3.5-5.5); Total Protein, Blood 7.7 g/dL (6.4-8.2)
[2023-01-23 00:24] LABS: International Normalized Ratio 1.06; Prothrombin Time Results 11.1 Sec (9.7-11.5)
[2023-01-23 02:34] LABS: Adenovirus Not Detected (NOT DETECT); Bordetella pertussis Not Detected (NOT DETECT); Chlamydophila pneumoniae Not Detected (NOT DETECT); Coronavirus 229E Not Detected (NOT DETECT); Coronavirus HKU1 Not Detected (NOT DETECT); Coronavirus NL63 Not Detected (NOT DETECT); Coronavirus OC43 Not Detected (NOT DETECT); Human Metapneumovirus Not Detected (NOT DETECT); Human Rhinovirus/Enterovirus Not Detected (NOT DETECT); Influenza A/2009-H1 Not Detected (NOT DETECT); Influenza A/H1 Not Detected (NOT DETECT); Influenza A/H3 Not Detected (NOT DETECT); Influenza B Not Detected (NOT DETECT); Mycoplasma pneumoniae Not Detected (NOT DETECT); Parainfluenza Virus 1 Not Detected (NOT DETECT); Parainfluenza Virus 2 Not Detected (NOT DETECT); Parainfluenza Virus 3 Not Detected (NOT DETECT); Parainfluenza Virus 4 Not Detected (NOT DETECT); Respiratory Syncytial Virus Not Detected (NOT DETECT); SARS-Cov-2 (COVID-19), BioFire Not Detected (NOT DETECT)
[2023-01-23 06:21] LABS: Hematocrit 22.8 % (37.0-53.0); Hemoglobin 7.7 g/dL (13.5-17.5); Mean Corpuscular HGB 31.6 pg (26.0-34.0); Mean Corpuscular HGB Conc 33.8 g/dL (31.5-36.5); Mean Corpuscular Volume 93 fL (80-100); Mean Platelet Volume 9.3 fL (9.1-12.4); Platelet Count 195 K/mm3 (150-400); RDW Coefficient Variation 14.2 % (11.7-14.2); RDW Standard Deviation 48.1 fL (35.1-46.3); Red Blood Cell Count 2.44 M/mm3 (4.30-5.90); White Blood Cell Count 25.93 K/mm3 (4.00-11.30)
[2023-01-23 06:54] LABS: Magnesium, Blood 2.6 mg/dL (1.6-2.4)
[2023-01-23 07:10] LABS: Albumin/Globulin Ratio 0.9 (0.8-1.8); Bilirubin, Total 0.7 mg/dL (0.1-1.0); Calcium, Blood 7.6 mg/dL (8.5-10.1); Globulin, Blood 3.3 g/dL (2.2-4.0); Potassium, Blood 4.1 mmol/L (3.5-5.5); Total Protein, Blood 6.3 g/dL (6.4-8.2)
[2023-01-23 07:17] LABS: Bun/Creatinine Ratio 4.8 (12.0-20.0); Creatinine, Blood 16.1 mg/dL (0.60-1.20); Phosphorus, Blood 9.1 mg/dL (2.5-4.9)
[2023-01-23 07:18] LABS: BAND PERCENT MAN 12 % (0-8); BASOPHILS PERCENT MAN 0 % (0-2); EOSINOPHILS PERCENT MAN 0 % (0-6); LYMPHOCYTES ABSOLUTE MAN 1.29 K/mm3 (0.84-5.20); LYMPHOCYTES PERCENT MAN 5 % (21-46); MONOCYTES ABSOLUTE MAN 1.03 K/mm3 (0.16-1.47); MONOCYTES PERCENT MAN 4 % (4-13); NEUTROPHILS ABSOLUTE MAN 23.59 K/mm3 (1.96-9.15); SEG NEUTROPHILS PERCENT MAN 79 % (41-73); TOTAL CELLS COUNTED 100
--- NOTE | 2023-01-23 15:25 | NUR ---
TRANSFER: Pt arrived to ICU 8 from medical floor at 1525. Pt is alert and oriented, actively vomiting.
[2023-01-23 16:04] LABS: Hematocrit 23.2 % (37.0-53.0); Hemoglobin 7.8 g/dL (13.5-17.5)
--- NOTE | 2023-01-23 16:28 | NUR ---
Scioto of Care: Care assumed at approx 1530hr, patient transferred from rm 301 to ICU 8. Patient alert and oriented x4, calm and cooperative with staff. Denies pain, or discomfort. Mild nausea at this time, no vomiting, prn HI phenergan effective to manage N/V at this time. VS show sinus tach in the 120's and systolic BP 160's-180's. Vomit on towel on patient's chest appears to be brown bile. Repeat H+H ordered and results have slightly improved since last draw at 0400hr. Call placed to Dr. Cassidy, instructed to not give ordered unit of PRBC, repeat H+H at 1900hr. Also received order for lopressor 25mg BID (patient's home dose). log deck tender Keshawn placed power-glide to ISAAC. X1 peripheral IV to lt forearm upon arrival (not patent), will remove and attempt additional peripheral IV. NS infusing at 75ml/hr. Dialysis port to rt upper chest, line site appears WNL, incision site above the line shows small amount of blood drainage but not actively bleeding. Report from tail end rider states this incision is de-hissed. Dr. Voss to bedside shortly after arrival. Informed to maintain current plan of Abx until Dr. Gramajo can see patient and replace catheter. Will call Dr. Voss with repeat renal function panel results. arrival
[2023-01-23 16:39] LABS: Albumin, Blood 3.2 g/dL (3.4-5.0); Anion Gap 14 mmol/L (6-16); Blood Urea Nitrogen 39 mg/dL (8-24); Bun/Creatinine Ratio 4.4 (12.0-20.0); CO2, Blood 24 mmol/L (21-32); Calcium, Blood 8.2 mg/dL (8.5-10.1); Chloride, Blood 96 mmol/L (98-108); Creatinine, Blood 8.95 mg/dL (0.60-1.20); Glomerular Filtration Rate 7 (60-); Glucose, Blood 185 mg/dL (70-99); Phosphorus, Blood 3.8 mg/dL (2.5-4.9); Potassium, Blood 3.7 mmol/L (3.5-5.5); Sodium, Blood 134 mmol/L (136-145)
--- NOTE | 2023-01-23 18:38 | NUR ---
Shift Summary: See assumption note r/t transfer to ICU. No significant changes throughout remainder of shift. No N/V or s/s of GI bleeding. Patient calm, mostly sleeping. VS remain stable. Dr. Lopez to room this evening, expressed minimal concern for GI bleeding and no plan for endoscope. Continue to monitor for bleeding and contact Dr. Lopez with any concerns. Repeat renal function panel showed significant improvements, results called to Dr. Voss, no new orders received. Will continue to monitor until report to NOC shift RN.
[2023-01-23 19:21] LABS: Hematocrit 21.5 % (37.0-53.0); Hemoglobin 7.3 g/dL (13.5-17.5)
--- NOTE | 2023-01-23 23:41 | NUR ---
ASSUMED CARE PT A/O X 4. FOLLOWS COMMANDS. PT STATES HE FEELS TIRED AND WANTS TO SLEEP. VSS. SR RATE 80'S. ON 2L NC. UP TO BRP WITH ONE PERSON. ON BM THIS B/M. NO S/S OF BLEEDING NOTED. HD CATH TO R UPPER CHEST. NS AT 75ML/HR. DENIES N/V AND ABD PAIN. CALL TO HOSP REGARDING STATUS CHANGE, AND POSITIVE BLOOD CULTURES. PT NOW MED TELE STATUS. 0 VANCO TROUGH LABS CANCELED ON DAY SHIFT. CALL MADE TO PHARM. LABS ORDERED AND DRAWN.
[2023-01-24] VITALS (17 sets, daily range): BP systolic 116–163; BP diastolic 63–75
[2023-01-24 00:06] LABS: Vancomycin, Random 27.7 ug/mL
--- NOTE | 2023-01-24 00:48 | NUR ---
TRANSFER NOTE; PT ARRIVES FROM ICU VIA WHEELCHAIR. PT IS ON 2L NC UPON TRANSFER. THE PT TRANSFERED FROM THE WHEELCHAIR TO BED VIA 1 PERSON ASSIST. THE PT IS AXO X4. THE PT APPEARS WEAK AND TIRED UPON TRANSFER. THE PT WAS ABLE TO REST COMFORTABLY INTO BED, NO OBVIOUS SIGNS OF DISCOMFORT/DISTRESS. THE PT DENIES ANY PAIN AT THIS TIME. CURRENTLY THE PT IS RESTING IN BED WITH THE BED IN THE LOWEST POSITION AND THE CALL LIGHT AT BEDSIDE. FIRE EDUCATION PROVIDED, PT DENIES HAVING ANY POSSIBLE IGNITION SOURCES.
--- NOTE | 2023-01-24 04:20 | NUR ---
REPEAT BLOOD CULTURE CAME BACK POSTIVE FOR GRAM POSITIVE COCCI IN CLUSTERS AGAIN, CALLED THE PHARAMACIST TO FIND OUT IF THE PT NEEDED MORE VANCO. PER PHARMACIST PTS VANCO RAND[facility] LAB INDICATED HE SHOULD BE COVERED. NOTIFIED DIVYA OF THE PTS BLOOD CULTURE RESULTS WELL WHAT THE PHARAMCIST SAID AND THERE IS NO NEW ORDERS AT THIS TIME.
--- NOTE | 2023-01-24 04:47 | NUR ---
SHIFT SUMMARY; NO ACUTE CHANGES SINCE TRANSFER. THE PT HAS BEEN AXO X4 AND A STANDBY ASSIST. HOWEVER, THE PT HAS VERY LITTLE/NO URINARY OUTPUT. THE PT IS VERY TIRED THIS EVENING. THE PT HAS BEEN SLEEPING THE ENTIRETY OF THE NIGHT SINCE TRANSFER. NS @ 75MLS/HR IS RUNNING. THE PT DENIES ANY CHEST PAIN/PRESSURE, SOB, N/V OR PAIN. CURRENTLY THE PT IS SLEEPING IN BED WITH THE BED IN THE LOWEST POSITION AND THE CALL LIGHT AT BEDSIDE. FIRE SAFETY MAINTAINED.
[2023-01-24 05:40] LABS: Hematocrit 24.1 % (37.0-53.0); Hemoglobin 7.8 g/dL (13.5-17.5)
[2023-01-24 06:03] LABS: Magnesium, Blood 2.4 mg/dL (1.6-2.4)
[2023-01-24 06:25] LABS: Albumin, Blood 2.7 g/dL (3.4-5.0); Anion Gap 15 mmol/L (6-16); Blood Urea Nitrogen 47 mg/dL (8-24); Bun/Creatinine Ratio 4.6 (12.0-20.0); CO2, Blood 23 mmol/L (21-32); Calcium, Blood 7.9 mg/dL (8.5-10.1); Chloride, Blood 100 mmol/L (98-108); Glomerular Filtration Rate 6 (60-); Glucose, Blood 116 mg/dL (70-99); Potassium, Blood 3.5 mmol/L (3.5-5.5); Sodium, Blood 138 mmol/L (136-145)
[2023-01-24 06:27] LABS: Phosphorus, Blood 8.2 mg/dL (2.5-4.9)
[2023-01-24 11:28] LABS: Vancomycin, Random 23.5 ug/mL
[2023-01-24 14:10] LABS: Magnesium, Blood 2.1 mg/dL (1.6-2.4)
[2023-01-24 14:11] LABS: Bun/Creatinine Ratio 4.5 (12.0-20.0); Calcium, Blood 8.5 mg/dL (8.5-10.1); Creatinine, Blood 5.55 mg/dL (0.60-1.20); Potassium, Blood 3.4 mmol/L (3.5-5.5)
[2023-01-24 14:24] LABS: Hematocrit 23.3 % (37.0-53.0); Hemoglobin 7.9 g/dL (13.5-17.5); Mean Corpuscular HGB 31.7 pg (26.0-34.0); Mean Corpuscular HGB Conc 33.9 g/dL (31.5-36.5); Mean Corpuscular Volume 94 fL (80-100); Mean Platelet Volume 9.5 fL (9.1-12.4); Platelet Count 192 K/mm3 (150-400); RDW Standard Deviation 47.4 fL (35.1-46.3); Red Blood Cell Count 2.49 M/mm3 (4.30-5.90); White Blood Cell Count 12.94 K/mm3 (4.00-11.30)
--- NOTE | 2023-01-24 14:30 | NUR ---
AT 1328, PT'S CAME TO THIS AUTHOR STATING THAT PT WAS HAVING CHEST PAIN. UPON ASSESSMENT, PT WAS C/O 9/10 CHEST PRESSURE, TACHYPNEIC, NO DIAPHORESIS. NO CHANGE IN LOC. VS: 146/70, 117, 98.9, RR 26, 100% ON 2 L/MIN NC. DR. POTTS NOTIFIED, RECEIVED TELEPHONE ORDERS FOR BMP, MAG, TROPONINS, AND STAT EKG. ALSO RECEIVED ORDER FOR MORPHINE 2.5 MG IV FOR PAIN. LABS DRAWN, EKG DONE, AND MORPHINE GIVEN WITH GOOD RELIEF. PATIENT RESTED COMFORTABLY AFTER MORPHINE GIVEN.
--- NOTE | 2023-01-24 18:18 | NUR ---
SHIFT SUMMARY: NO FURTHER EPISODES OF CHEST PAIN. HAD DIALYSIS TODAY. IS HAVING FREQUENT LOOSE STOOLS, AT TIMES CANNOT MAKE IT TO BR, STARTED ON PROBIOTIC. NO N/V, TOLERATING PO INTAKE, APPETITE OK. SLIGHT WEAKNESS IN BLE, SBA TO BR. REPEAT BLOOD CULTURES DRAWN. VISITED.
[2023-01-25] VITALS (15 sets, daily range): BP systolic 127–175; BP diastolic 66–86
--- NOTE | 2023-01-25 04:01 | NUR ---
SHIFT SUMMARY. AOX4, PLEASANT, COOPERATIVE WITH CARE. EARLY IN SHIFT, PT WAS RUNNING FEVER OF 102.9, REQUIRED O2 SUPPLEMENTATION TO MAINTAIN SATURATION, TACHYCARDIC, TACHYPNEIC. ADMINISTERED TYLENOL AND 30 MG TORADOL PER ORDER FROM HOSPITALIST OMEGA. CHECKED VITALS ABOUT Q1 THEREAFTER AND AFTER AN HOUR OR SO ALL VITALS WERE WNL. NO FEVER SINCE. PT CONTINUES TO DENY PAIN. HAS SLEPT SOUNDLY THROUGH MOST OF SHIFT AFTER THIS. CALLS APPROPRIATELY. BED LOCKED IN LOWEST POSITION. CALL LIGHT LEFT WITHIN REACH.
[2023-01-25 05:13] LABS: Hematocrit 21.4 % (37.0-53.0); Hemoglobin 7.3 g/dL (13.5-17.5)
[2023-01-25 06:02] LABS: Magnesium, Blood 2.2 mg/dL (1.6-2.4)
[2023-01-25 06:07] LABS: Anion Gap 11 mmol/L (6-16); Blood Urea Nitrogen 30 mg/dL (8-24); Bun/Creatinine Ratio 3.7 (12.0-20.0); CO2, Blood 26 mmol/L (21-32); Chloride, Blood 98 mmol/L (98-108); Creatinine, Blood 8.14 mg/dL (0.60-1.20); Glomerular Filtration Rate 8 (60-); Glucose, Blood 104 mg/dL (70-99); Phosphorus, Blood 5.2 mg/dL (2.5-4.9); Sodium, Blood 135 mmol/L (136-145)
--- NOTE | 2023-01-25 09:00 | NUR ---
pt laying in bed awake, pleasant and cooperative with care, follows commands well, denies pain, states he's feeling good, had a good night, was told to have dialysis prior to pulling permacath, this was passed on to heart center, lungs clear, on r/a, no cough, perma cath to rcw, hrr, no edema noted, ppp+2, cap refill<3 sec, vs stable, afebrile, piv site to rfa and power glide to dennise sites are clear and patent, btx4, abd flat soft nontender, skin c/w/d, maew, ortega, call light in reach.
[2023-01-25 09:55] LABS: Vancomycin, Random 19.5 ug/mL
[2023-01-25 11:10] LABS: Vancomycin, Random 17.8 ug/mL
--- NOTE | 2023-01-25 18:35 | NUR ---
pt had dialysis this am, and permacath was removed after, dressing to site, pt has had no nausea this shift, family in to visit, no further changes this shift. call light in reach.
[2023-01-26 01:18] VITALS: BP 149/76
[2023-01-26] MEDS ORDERED: ONDA4 PO ×2 (03:47)
[2023-01-26] MEDS ORDERED: SUCRALFATE1 GM/1015 PO ×2 (03:48)
[2023-01-26] MEDS ORDERED: PANTOPRAZOLE SO40 M2 PO ×2 (03:49)
[2023-01-26] MEDS ORDERED: MUPIROCIN2210 TOP ×2 (03:51)
--- NOTE | 2023-01-26 03:51 | NUR ---
SHIFT SUMMARY. SHIFT HAS BEEN MOSTLY UNREMARKABLE. PT AOX4, PLEASANT, COOPERATIVE WITH CARE. CALLS APPROPRIATELY. HAS SLEPT THROUGH MUCH OF SHIFT AFTER 2100 MED PASS AND ASSESSMENT. FLUIDS RUNNING THROUGHOUT SHIFT WITHOUT DIFFICULTY. TELE RUNNING NSR WITH NO EVENTS THUS FAR. HAS NOT HAD ANY URINE OUTPUT. DIALYSIS PATIENT. NO COMPLAINTS OF PAIN/NAUSEA THIS SHIFT THUS FAR. SWITCHED Q6 REGLAN TO PRN PER ORDER FROM HOSPITALIST OMEGA. PT REPORTS HE HAS NOT HAD NAUSEA FOR A COUPLE OF DAYS NOW. BED LOCKED IN LOWEST POSITION. CALL LIGHT LEFT WITHIN REACH.
[2023-01-26 05:02] LABS: Hemoglobin 7.1 g/dL (13.5-17.5)
[2023-01-26 05:19] LABS: Albumin, Blood 3.1 g/dL (3.4-5.0); Anion Gap 11 mmol/L (6-16); Blood Urea Nitrogen 26 mg/dL (8-24); Bun/Creatinine Ratio 3.6 (12.0-20.0); CO2, Blood 26 mmol/L (21-32); Calcium, Blood 8.1 mg/dL (8.5-10.1); Chloride, Blood 99 mmol/L (98-108); Creatinine, Blood 7.22 mg/dL (0.60-1.20); Glomerular Filtration Rate 9 (60-); Glucose, Blood 107 mg/dL (70-99); Magnesium, Blood 2.2 mg/dL (1.6-2.4); Phosphorus, Blood 3.6 mg/dL (2.5-4.9); Potassium, Blood 3.5 mmol/L (3.5-5.5); Sodium, Blood 136 mmol/L (136-145)
[2023-01-26 07:51] VITALS: BP 140/68
--- NOTE | 2023-01-26 11:48 | NUR ---
NURSE NOTE, PHONE CALL TO DOCTOR: AN ECHOCARDIOGRAM ORDER WAS RECEIVED, ORDER PLACED BY DR. CRONIN. PT COMPLETED AN ECHOCARDIOGRAM 01/25/[address] CRONIN NOTIFIED, HE ADVISED TO CANCEL TEST. ECHO ORDER CANCELLED.
[2023-01-26 15:55] VITALS: BP 166/76
--- NOTE | 2023-01-26 17:46 | NUR ---
SHIFT SUMMARY: OVERALL UNREMARKABLE SHIFT. THE PATIENT WAS SWITHED FROM VANCOMYCIN TO OXACILLIN FOR IV ANTIBIOTIC THERAPY FOR TREATMENT OF SEVERE SEPSIS AND POSTIVE STAPH ON BLOOD CULTURES. PT IS TOLERATING TREATMENT WELL. HE HAS BEEN RESTING IN BED MOST OF THE DAY WITH THE OCCASIONAL AMBULATION TO THE RESTROOM WITHOUT REPORTS OF URINE OUTPUT, BUT MOSTLY PASSING OF GAS, AND SITTING IN THE CHAIR IN THE ROOM. HE DENIES PAIN, CHEST PAIN, OR SHORTNESS OF BREATH. HE HAS BEEN PLEASANT AND COOPERATIVE WITH CARE AND STAFF. WITH THE PATIENT HAVING A HISTORY OF DIABETES AND NO ACTIVE ORDERS FOR INSULIN, PER DR. POTTS NOTIFY HIM IF Pt's GLUCOSE IS GREATER THAN 180 SO HE CAN INITIATE INSULIN COVERAGE. PT IS CURRENLY IN BED SLEEPING, BED IN LOWEST POSITION, AND CALL LIGHT WITHIN REACH.
[2023-01-26 19:55] VITALS: BP 158/81
[2023-01-27 03:30] VITALS: BP 157/80
--- NOTE | 2023-01-27 03:54 | NUR ---
SHIFT SUMMARY. PT HAS BEEN AOX4, PLEASANT, COOPERATIVE WITH CARE. ALL ABX ADMINISTERED ON SCHEDULE AND WIHTOUT DIFFICULTY. HAS SLEPT THROUGH MUCH OF SHIFT AFTER MED PASS AND SHIFT ASSESSMENT. CONVERSATION WITH PATIENT EARLY IN SHIFT REGARDING STAYING ADMITTED TO HOSPITAL UNTIL NEW DIALYSIS PORT IS ABLE TO BE PLACED. PT WAS FRUSTRATED WITH CURRENT SITUATION BUT IS UNDERSTANDING OF NEED FOR ADMISSION STATUS. HOPEFUL TO GET CATHETER PLACED EARLY NEXT WEEK AND GO HOME THEREAFTER. CALLS APPROPRIATELY. NO PAIN, NAUSEA, OR VOMITING THIS SHIFT. BED LOCKED IN LOWEST POSITION. CALL LIGHT LEFT WITHIN REACH.
[2023-01-27 05:07] LABS: Hematocrit 20.8 % (37.0-53.0); Hemoglobin 7.1 g/dL (13.5-17.5)
[2023-01-27 05:47] LABS: Magnesium, Blood 2.5 mg/dL (1.6-2.4)
[2023-01-27 06:03] LABS: Albumin, Blood 2.8 g/dL (3.4-5.0); Anion Gap 9 mmol/L (6-16); Blood Urea Nitrogen 38 mg/dL (8-24); Bun/Creatinine Ratio 4.2 (12.0-20.0); CO2, Blood 26 mmol/L (21-32); Calcium, Blood 7.9 mg/dL (8.5-10.1); Chloride, Blood 98 mmol/L (98-108); Creatinine, Blood 9.12 mg/dL (0.60-1.20); Glomerular Filtration Rate 7 (60-); Glucose, Blood 154 mg/dL (70-99); Phosphorus, Blood 4.8 mg/dL (2.5-4.9); Potassium, Blood 3.3 mmol/L (3.5-5.5); Sodium, Blood 133 mmol/L (136-145)
--- NOTE | 2023-01-27 07:28 | NUR ---
call from lab reporting another positive blood culture. gram positive cocci in clusters. informed dr. ott. tru ordered another culture to be drawn. order already entered by dr cantrell. handing patient off to oncoming nurse felipe santillan rn
[2023-01-27 07:55] VITALS: BP 139/80
[2023-01-27 15:39] VITALS: BP 143/76
--- NOTE | 2023-01-27 16:11 | NUR ---
SHIFT SUMMARY PT AOX4, INDEPENDENT IN THE ROOM. IS AT THE BS. PT IRRITABLE THIS AM BUT HAS IMPROVED HIS DEMEANOR AT THE DAY PROGRESSED. HIS COUSIN WORKS HERE AND TOOK HIM FOR A RIDE AROUND THE HOSPITAL BY WHEELCHAIR. HE TOLERATED IT WELL. HE IS RESTLESS AND ANXIOUS TO GET HOME. NO C/O P/N/V/D/SOB/CP THIS SHIFT. CALL LIGHT WITHIN REACH, BED IN THE LOWEST POSITION. WILL REPORT TO ONCOMING NURSE.
[2023-01-27 19:22] VITALS: BP 163/86
--- NOTE | 2023-01-28 05:07 | NUR ---
SHIFT SUMMARY PT A&Ox4, CALLS AND COMMUNICATES NEEDS APPROPRIATELY. BP STABLE, SR-ST 80-100's, DENIES CP/PRESSURE. SpO2> 92% RA, DENIES SOB. IND IN ROOM. PT STATES THAT HE WANTS TO GO HOME. NO OTHER EVENTS, WILL REPORT TO ONCOMING RN.
[2023-01-28 05:38] LABS: Hematocrit 21.2 % (37.0-53.0); Hemoglobin 7.4 g/dL (13.5-17.5)
[2023-01-28 05:52] VITALS: BP 138/74
[2023-01-28 06:16] LABS: Magnesium, Blood 2.4 mg/dL (1.6-2.4)
[2023-01-28 06:46] LABS: Albumin, Blood 2.7 g/dL (3.4-5.0); Anion Gap 13 mmol/L (6-16); Blood Urea Nitrogen 54 mg/dL (8-24); Bun/Creatinine Ratio 5.2 (12.0-20.0); CO2, Blood 21 mmol/L (21-32); Calcium, Blood 7.6 mg/dL (8.5-10.1); Chloride, Blood 98 mmol/L (98-108); Glomerular Filtration Rate 6 (60-); Glucose, Blood 112 mg/dL (70-99); Phosphorus, Blood 5.7 mg/dL (2.5-4.9); Potassium, Blood 3.8 mmol/L (3.5-5.5); Sodium, Blood 132 mmol/L (136-145)
[2023-01-28 08:04] VITALS: BP 135/78
[2023-01-28 15:29] VITALS: BP 134/82
--- NOTE | 2023-01-28 18:31 | NUR ---
SHIFT SUMMARY: PATIENT A&OX4. CALM, PLEASANT AND COOPERATIVE c CARE. USES CALL LIGHT APPROPRIATELY AND ABLE TO MAKE NEEDS KNOWN. DENIES CP/PRESSURE, SOB, N/V AND GENERALIZED PAIN. ON TELE, SR HR IN THE 70'S BPM. PATIENT HAD LOW GRADE TEMP RANGES 99.3-99.5 THIS SHIFT. BLOOD CX RESULT THIS AM WAS POSITIVE. RECEIVED SCHEDULED ABX. VITAL SIGNS REVIEWED. PATIENT HAD MINIMAL PO INTAKE c MEALS, REPORTS NO APPETITE. POWERGLIDE TO ISAAC SALINE LOCKED. CALL LIGHT IN REACH. PATIENT EDUCATED ON NON SMOKING POLICY, RISK OF INJURY, AND IGNITION SOURCES WHEN O2 IN USE. PATIENT DENIES SMOKING AND VERBALIZED UNDERSTANDING.
[2023-01-28 20:10] VITALS: BP 129/79
--- NOTE | 2023-01-29 04:45 | NUR ---
END OF SHIFT SUMMARY PT CALM, PLEASANT AND COOPERATIVE WITH CARE PROVIDED. PT A&O x4. PT ON TELEMETRY, SINUS RHYTHM 82 BMP. NO C/O CP, SOB, PT DENIED NAUSEA. PT SLEPT MOST OF THE SHIFT. VSS, PT's TEMP WAS 98.1. POWERGLIDE TO L UPPER ARM, PT RECEIVING IV ANTIBIOTICS. CALL LIGHT WITHIN REACH, WCTM.
[2023-01-29 05:49] LABS: Hematocrit 21.4 % (37.0-53.0); Hemoglobin 7.4 g/dL (13.5-17.5)
[2023-01-29 06:20] LABS: Albumin, Blood 2.6 g/dL (3.4-5.0); Anion Gap 14 mmol/L (6-16); Blood Urea Nitrogen 60 mg/dL (8-24); CO2, Blood 20 mmol/L (21-32); Calcium, Blood 7.7 mg/dL (8.5-10.1); Chloride, Blood 97 mmol/L (98-108); Glucose, Blood 126 mg/dL (70-99); Magnesium, Blood 2.6 mg/dL (1.6-2.4); Phosphorus, Blood 6.7 mg/dL (2.5-4.9); Potassium, Blood 3.9 mmol/L (3.5-5.5); Sodium, Blood 131 mmol/L (136-145)
[2023-01-29 06:26] LABS: Glomerular Filtration Rate 5 (60-)
--- NOTE | 2023-01-29 06:44 | NUR ---
PT HAD LABS DRAWN THIS MORNING, CRITICAL LAB RESULTS CAME BACK CREATINE 12.10. PREVIOUS CREATINE VALUE WAS 10.30 ON 01/28/23. ATTENDING PHYSICIAN NOTIFIED. NO NEW ORDERS WERE PLACED. KALLI.
[2023-01-29 07:23] VITALS: BP 148/77
[2023-01-29 16:17] VITALS: BP 153/69
--- NOTE | 2023-01-29 17:17 | NUR ---
SHIFT SUMMARY: PATIENT A&OX4. APPEARS TO BE DEPRESSED, PLEASANT AND COOPERATIVE c CARE. NOTED TRACES OF EDEMA TO FACE, PARVIZ ORBITAL AND BLE'S. BLOOD CX WAS DRAWN YESTERDAY RESULT THIS AM WAS NEGATIVE. PATIENT HAD OT UNMEASURED URINE VOID THIS SHIFT, c MINIMAL PO INTAKE. PATIENT CONTINUES TO REPORTS NO APPETITE. RECEIVED SCHEDULED MEDS PER EMAR. DENIES CP/PRESSURE, N/V, SOB. AFIBRILE. ON TELE SR HR IN THE LOW 80'S BPM. VITAL SIGNS REVIEWED. CALL LIGHT IN REACH. PATIENT EDUCATED ON NON SMOKING POLICY, RISK OF INJURY, AND IGNITION SOURCES WHEN O2 IN USE. PATIENT DENIES SMOKING AND VERBALIZED UNDERSTANDING.
[2023-01-29 19:51] VITALS: BP 139/74
--- NOTE | 2023-01-29 22:51 | NUR ---
NURSE NOTE VSS. RECEIVING ANTIBIOTICS ORDERED. SOME NAUSEA, MEDS GIVEN. FOOD INGESTION LOW, ENCOURAGED TO EAT MORE. FIRE IGNITION TEACHING GIVEN EARLIER. CALL LIGHT IN REACH. WILL CONTINUE TO MONITOR
[2023-01-30 01:14] VITALS: BP 132/62
[2023-01-30 03:50] VITALS: BP 134/71
--- NOTE | 2023-01-30 04:12 | NUR ---
RESEARCH BIOLOGIST SUMMARY VSS. AWAKE AT INTERVALS. POOR INTAKE OF FOOD AND FLUIDS. IV ANTIBIOTICS CONTINUE, SCHEDULED EVERY 4 HRS. MED Unype CONTINUES - SR IN THE 70'S AND 80'S UP WITH STANDBY ASSIST. CALL LIGHT IN REACH. WILL CONTINUE TO MONITOR
[2023-01-30 04:52] LABS: Hematocrit 20.3 % (37.0-53.0); Hemoglobin 7.1 g/dL (13.5-17.5)
[2023-01-30 05:52] LABS: Magnesium, Blood 2.7 mg/dL (1.6-2.4)
[2023-01-30 06:08] LABS: Albumin, Blood 2.5 g/dL (3.4-5.0); Anion Gap 13 mmol/L (6-16); Blood Urea Nitrogen 67 mg/dL (8-24); Bun/Creatinine Ratio 4.8 (12.0-20.0); CO2, Blood 20 mmol/L (21-32); Calcium, Blood 7.7 mg/dL (8.5-10.1); Chloride, Blood 99 mmol/L (98-108); Glomerular Filtration Rate 4 (60-); Glucose, Blood 116 mg/dL (70-99); Phosphorus, Blood 6.9 mg/dL (2.5-4.9); Potassium, Blood 3.9 mmol/L (3.5-5.5); Sodium, Blood 132 mmol/L (136-145)
--- NOTE | 2023-01-30 06:26 | NUR ---
CRITICAL LAB VL[facility] OF CREATININE 13.9 CALLED TO FLOOR. NOTIFIED (PT HAS NO ACCESS FOR DIALYSIS) AND ORDERED A NEPHROLOGY CONSULT. DR CRONIN NOTIFIED AND WILL FOLLOW UP
[2023-01-30 08:03] LABS: BASOPHILS ABSOLUTE AUTO 0.04 K/mm3 (0.00-0.23); BASOPHILS PERCENT AUTO 0 % (0-2); EOSINOPHILS ABSOLUTE AUTO 0.46 K/mm3 (0.00-0.68); EOSINOPHILS PERCENT AUTO 5 % (0-6); Hematocrit 20.4 % (37.0-53.0); IMMATURE GRAN ABSOLUTE AUTO 0.27 K/mm3 (0.00-0.10); IMMATURE GRAN PERCENT AUTO 3 % (0-1); LYMPHOCYTES ABSOLUTE AUTO 1.75 K/mm3 (0.84-5.20); LYMPHOCYTES PERCENT AUTO 17 % (21-46); MONOCYTES ABSOLUTE AUTO 1.03 K/mm3 (0.16-1.47); MONOCYTES PERCENT AUTO 10 % (4-13); Mean Corpuscular HGB 31.1 pg (26.0-34.0); Mean Corpuscular HGB Conc 34.3 g/dL (31.5-36.5); Mean Corpuscular Volume 91 fL (80-100); Mean Platelet Volume 9.8 fL (9.1-12.4); NEUTROPHILS ABSOLUTE AUTO 6.61 K/mm3 (1.96-9.15); NEUTROPHILS PERCENT AUTO 65 % (41-73); Platelet Count 358 K/mm3 (150-400); RDW Standard Deviation 47.8 fL (35.1-46.3); Red Blood Cell Count 2.25 M/mm3 (4.30-5.90); White Blood Cell Count 10.16 K/mm3 (4.00-11.30)
[2023-01-30 08:15] VITALS: BP 140/71
[2023-01-30 15:52] VITALS: BP 176/92
--- NOTE | 2023-01-30 18:31 | NUR ---
SHIFT SUMMARY: PATIENT A&OX4. PATIENT REPORTS BODY ACHES AND FEELING VERY WEAK TODAY. AFIBRILE. DENIES CP/PRESSURE, SOB, N/V AND DIZZINESS. ON TELE, SR HR IN THE HIGH 80'S BPM. RECEIVED SCHEDULED IV ABX AND PO MEDS. CREATININE ELEVATED. NOTED TO BE MORE EDEMATOUS TO FACE, PARVIZ ORBITAL AND BLE'S. PATIENT AMBULATES TO BATHROOM c SBA, HAD 2 CONTINENCE UNMEASURED VOID AND 1 BROWN SOFT MED BM THIS SHIFT. VITAL SIGNS REVIEWED. CALL LIGHT IN REACH. PATIENT EDUCATE ON NON SMOKING POLICY, RISK OF INJURY AND IGNITION SOURCES WHEN O2 IN USE. PATIENT DENIES SMOKING AND VERBALIZE UNDERSTANDING.
[2023-01-30 20:24] VITALS: BP 118/83
[2023-01-31 04:03] VITALS: BP 158/78
--- NOTE | 2023-01-31 05:02 | NUR ---
SHIFT SUMMARY PT A&O X4, COOPERATIVE WITH CARE. VSS. PT REPORTS GENERAL PAIN IN HIS BODY, REPORTS IT FEELING "TIGHT AND SWOLLEN". PT DECLINED TYLENOL FOR PAIN STATES "IT DOESN'T HELP MUCH". PT FRUSTRATED WITH WHOLE SITUATION AND BEING HERE AT THE HOSPITAL, THIS RN LISTENED AND PROVIDED SUPPORT. PT DENIES CP OR PRESSURE, DENIES SOB. PT DENIES N/V THIS SHIFT. PT NOT MAKING MUCH URINE, VOIDED X1 THIS SHIFT. NO BM. PT RESTED WELL THROUGHOUT SHIFT. ABX PER EMAR. WILL UPDATE ONCOMING RN.
[2023-01-31 05:08] LABS: Hematocrit 23.1 % (37.0-53.0); Hemoglobin 7.9 g/dL (13.5-17.5)
[2023-01-31 06:21] LABS: Magnesium, Blood 2.9 mg/dL (1.6-2.4)
[2023-01-31 06:29] LABS: Albumin, Blood 2.6 g/dL (3.4-5.0); Anion Gap 15 mmol/L (6-16); Blood Urea Nitrogen 69 mg/dL (8-24); Bun/Creatinine Ratio 4.6 (12.0-20.0); CO2, Blood 18 mmol/L (21-32); Chloride, Blood 101 mmol/L (98-108); Glomerular Filtration Rate 4 (60-); Glucose, Blood 102 mg/dL (70-99); Phosphorus, Blood 8.2 mg/dL (2.5-4.9); Potassium, Blood 4.1 mmol/L (3.5-5.5); Sodium, Blood 134 mmol/L (136-145)
[2023-01-31 07:12] VITALS: BP 147/62
[2023-01-31 15:06] VITALS: BP 164/88
--- NOTE | 2023-01-31 16:47 | NUR ---
SHIFT SUMMARY PATIENT A&OX4, COOPERATIVE WITH CARE, IRRITABLE AT TIMES. COMPLAINS OF PAIN THROUGHOUT BODY, FEELING "TIGHT AND ACHY" DUE TO EDEMA TO BUE, BLE, AND FACE. CURRENTLY ON DAY 4 WITHOUT DIALYSIS. BLOOD CULTURE THIS MORNING SHOWED NO STAPH GROWTH. PLAN IS FOR PERMA CATH TO BE PLACED BY [facility] [place]OMORROW. NPO AT MIDNIGHT. PATIENT DID NOT EAT T/O SHIFT DUE TO BEING NPO FOR PART OF THE DAY AND THEN FEELING NAUSEOUS. TREATED NAUSEA WITH REGLAN PER EMAR, TREATED PAIN WITH NORCO PER EMAR. PATIENT IS SLOW TO GET UP AND OUT OF BED, BUT IS ABLE TO AMBULATE TO BATHROOM. PATIENT IS CURRENTLY IN BED RESTING, ABX ARE RUNNING. DENIES ANY NEEDS AT THIS TIME. CALL LIGHT WITHIN REACH.
[2023-01-31 19:42] VITALS: BP 169/89
[2023-02-01] VITALS (19 sets, daily range): BP systolic 84–171; BP diastolic 49–85
--- NOTE | 2023-02-01 05:37 | NUR ---
SHIFT SUMMARY PT A&O X4, CALM AND COOPERATIVE WITH CARE.PT HAD COMPLAINTS OF BODY ACHES/PAINS T/O, TREATED PER EMAR. PT HAS BEEN NPO SINCE MIDNIGHT AND IS TO GO FOR A PROCEDURE TODAY TO GET DIALYSIS PORT RE-PLACED AFTER IT WAS REMOVED DUE TO BACTEREMIA. ABX INFUISING EVERY 4 HOURS. PATIENT SLEPT MOST OF THE NIGHT. INDEPENDENT TO RESTROOM BUT WEAK AND NEEDS SOME ASSISTANCE GETTING OUT OF BED. BED KEPT IN LOWEST POSITION WITH CALL LIGHT WITHIN REACH. PATIENT CALLS APPROPRIATELY.
[2023-02-01 09:08] LABS: Hematocrit 23.3 % (37.0-53.0); Hemoglobin 7.8 g/dL (13.5-17.5)
[2023-02-01 10:02] LABS: Magnesium, Blood 2.9 mg/dL (1.6-2.4)
[2023-02-01 12:04] LABS: Albumin, Blood 2.4 g/dL (3.4-5.0); Anion Gap 16 mmol/L (6-16); Blood Urea Nitrogen 74 mg/dL (8-24); Bun/Creatinine Ratio 4.6 (12.0-20.0); CO2, Blood 17 mmol/L (21-32); Calcium, Blood 7.8 mg/dL (8.5-10.1); Chloride, Blood 102 mmol/L (98-108); Glomerular Filtration Rate 3 (60-); Glucose, Blood 77 mg/dL (70-99); Phosphorus, Blood 9.6 mg/dL (2.5-4.9); Potassium, Blood 4.9 mmol/L (3.5-5.5); Sodium, Blood 135 mmol/L (136-145)
--- NOTE | 2023-02-01 16:55 | NUR ---
SHIFT SUMMARY PATIENT SLEEPY T/O SHIFT. ORIENTED X4. NO ACUTE CHANGES. TREATED FOR PAIN PER EMAR PROTOCOL. PT LEFT FOR THE PERMCATH PLACEMENT PROCEDURE AROUND 2PM AND WAS BACK IN THE ROOM BY 1530. PATIENT IS CURRENTLY IN DIALYSIS, ACCOMPANIED BY HIS .
[2023-02-02] VITALS (18 sets, daily range): BP systolic 100–198; BP diastolic 54–98
--- NOTE | 2023-02-02 04:12 | NUR ---
SHIFT SUMMARY PT A&O X4, CALM AND COOPERATIVE WITH CARE. PT COMPLAINED OF BEING VERY FATIGUED AFTER RETURNING FROM HAVING PERM CATH PLACED AND RECEIVING DIALYSIS AT THE START OF THE SHIFT. NEURO CHECKS COMPLETED EVERY 4 HOURS. INDEPENDENT IN ROOM, WALKS TO BATHROOM UNASSISTED. NO ACUTE CHANGES OVERNIGHT. PT STATES HE FEELS MUCH MORE COMFORTABLE AFTER HAVING DIALYSIS. PT STILL RECEIVING ANTIBX EVERY 4 HOURS UNTIL 02/10. BED IN LOWEST POSITION WITH CALL LIGHT IN REACH. PATIENT ABLE TO MAKE NEEDS KNOWN.
[2023-02-02 04:54] LABS: Hematocrit 21.9 % (37.0-53.0); Hemoglobin 7.3 g/dL (13.5-17.5)
[2023-02-02 05:37] LABS: Magnesium, Blood 2.4 mg/dL (1.6-2.4)
[2023-02-02 05:47] LABS: Albumin, Blood 3.4 g/dL (3.4-5.0); Anion Gap 16 mmol/L (6-16); Blood Urea Nitrogen 36 mg/dL (8-24); Bun/Creatinine Ratio 3.5 (12.0-20.0); CO2, Blood 21 mmol/L (21-32); Calcium, Blood 8.3 mg/dL (8.5-10.1); Chloride, Blood 99 mmol/L (98-108); Glomerular Filtration Rate 6 (60-); Glucose, Blood 61 mg/dL (70-99); Phosphorus, Blood 7.6 mg/dL (2.5-4.9); Potassium, Blood 3.9 mmol/L (3.5-5.5); Sodium, Blood 136 mmol/L (136-145)
--- NOTE | 2023-02-02 17:40 | NUR ---
SHIFT SUMMARY: WENDY IS A&OX4. VSS, NO ACUTE EVENTS THIS SHIFT. HE DID RECEIVE DIALYSIS THIS MORNING, 4L WERE REMOVED PER PT REPORT. PT STATES HE IS FEELING SIGNIFICANTLY BETTER. HOSPITALIST CHANGED ANTIBIOTIC REGIMEN, PER CULTURE RESULTS, TO FACILITATE PT'S REQUEST TO RECIEVE ANITIBIOTICS AT DIALYSIS AND THE [facility]. CARE COORDINATION ASSISTING PT WITH DISCHARGE PLANNING. PT IS INDEPENDENT IN THE ROOM, NEW POWERGLIDE PLACED TO TAMIA, PERMACATH TO RIGHT UPPER CHEST WALL. HE IS LYING IN BED WITH THE CALL LIGHT IN REACH. WCTM UNTIL REPORT IS GIVEN TO SHIP'S ENGINEER RN.
[2023-02-03] VITALS (14 sets, daily range): BP systolic 96–166; BP diastolic 40–89
[2023-02-03 05:24] LABS: Hematocrit 23.6 % (37.0-53.0); Hemoglobin 7.8 g/dL (13.5-17.5)
--- NOTE | 2023-02-03 05:37 | NUR ---
SHIFT SUMMARY WENDY IS ALERT AND FULLY ORIENTED AND IS COOPERATIVE WITH CARE, HE HAS BEEN INDEPENDENT IN HIS ROOM AND HAS HAD NO OBSERVABLE ACUTE CHANGES IN CARE THIS SHIFT. HE REPORTS FEELING MUCH BETTER TONIGHT, AND READY TO HAVE A GOOD SLEEP. HE HAD NO COMPLAINTS THIS SHIFT. HIS POWERGLIDE WAS UNABLE TO RETURN ADEQUATE BLOOD FOR LABS THIS AM. HE IS CURRENTLY RESTING IN BED AT THE LOWEST POSITION WITH HIS CALL LIGHT IN REACH
[2023-02-03 05:41] LABS: Albumin, Blood 3.8 g/dL (3.4-5.0); Anion Gap 11 mmol/L (6-16); Blood Urea Nitrogen 17 mg/dL (8-24); Bun/Creatinine Ratio 2.2 (12.0-20.0); CO2, Blood 28 mmol/L (21-32); Calcium, Blood 8.9 mg/dL (8.5-10.1); Chloride, Blood 100 mmol/L (98-108); Creatinine, Blood 7.77 mg/dL (0.60-1.20); Glomerular Filtration Rate 8 (60-); Glucose, Blood 145 mg/dL (70-99); Magnesium, Blood 2.5 mg/dL (1.6-2.4); Phosphorus, Blood 4.7 mg/dL (2.5-4.9); Potassium, Blood 3.5 mmol/L (3.5-5.5); Sodium, Blood 139 mmol/L (136-145)
--- NOTE | 2023-02-03 06:01 | NUR ---
THIS FOOTWEAR PRODUCTION MACHINE OPERATOR HAS REVIEWED AND AGREES WITH ALL NOTES AND ASSESSMENTS BY CHARLINE DAVALOS.
[2023-02-03] MEDS ORDERED: VISBIOME 112.51 EACH PO ×2 (13:43)
[2023-02-03] MEDS ORDERED: SODBIC650 PO ×2 (13:43)
[2023-02-03] MEDS ORDERED: CEFAZOLIN SODIUM1 G1 IV ×2 (13:44)
--- NOTE | 2023-02-03 13:45 | NUR ---
DISCUSSED DISCHARGE INSTRUCTIONS WITH PT AND , PROVIDED WRITTEN COPY. PRESCRIPTIONS [facility]ED TO [facility]. POWERGLIDE TO TAMIA LEFT IN PLACE FOR OUTPATIENT IV ABX, DRESSING CHANGED TODAY. PT STATES HE HAS ALL PERSONAL BELONGINGS GATHERED AND SENT HOME WITH HIS SPOUSE. PT TAKEN OUT TO PERSONAL VEHICLE VIA WHEELCHAIR FOR PRIVATE TRANSPORTATION HOME. PT TO RESUME NORMAL OUTPATIENT DIALYSIS SCHEDULE OF M// AT 0600.
--- NOTE | 2023-02-03 14:01 | NUR ---
RECEIVED A CALL FROM [facility] WITH THE [facility] WHO SCHEDULED PT TO BE SEEN ON Tuesday02/05/23 AND Tuesday02/06/23 AT 0830, Tuesday02/08/23 AT 0900, AND Tuesday02/10/23 AT 0800. DISCUSSED WITH PT AND FAMILY AT BEDSIDE AND WRITTEN COPY PROVIDED.
== END 2023-02-03 14:41 | disposition home or self-care (01) | DRG 314 ==
LOC: ER 23:24 → ICUE 23:25 → MEDS 23:25 → ICUE 01-23 15:16 → MEDS 01-24 00:28 → ENPENDDIS 02-03 12:50 → MEDS 02-03 14:41
PROVIDERS: Internal Medicine; Internal Medicine Nephrology; Student in an Organized Health Care Education/Training Program; ADMIT Internal Medicine
PROC: 30233N1 Transfusion of Nonautologous Red Blood Cells into Peripheral Vein, Percutaneous Approach (ICD-10-PCS; principal; 2023-01-23)
PROC: 5A1D70Z Performance of Urinary Filtration, Intermittent, Less than 6 Hours Per Day (ICD-10-PCS; 2023-01-25)
PROC: 0JH63XZ Insertion of Tunneled Vascular Access Device into Chest Subcutaneous Tissue and Fascia, Percutaneous Approach (ICD-10-PCS; 2023-02-01)
PROC: 02HV33Z Insertion of Infusion Device into Superior Vena Cava, Percutaneous Approach (ICD-10-PCS; 2023-02-01)
PROC: B5181ZA Fluoroscopy of Superior Vena Cava using Low Osmolar Contrast, Guidance (ICD-10-PCS; 2023-02-01)
PROC: 3E03329 Introduction of Other Anti-infective into Peripheral Vein, Percutaneous Approach (ICD-10-PCS; 2023-02-03)
DX: T82.7XXA Infection and inflammatory reaction due to other cardiac and vascular devices, implants and grafts, initial encounter (principal); A41.01 Sepsis due to Methicillin susceptible Staphylococcus aureus; J18.9 Pneumonia, unspecified organism; K22.11 Ulcer of esophagus with bleeding; N18.6 End stage renal disease; I12.0 Hypertensive chronic kidney disease with stage 5 chronic kidney disease or end stage renal disease; E87.1 Hypo-osmolality and hyponatremia; E87.20 Acidosis, unspecified; T81.30XA Disruption of wound, unspecified, initial encounter; F12.90 Cannabis use, unspecified, uncomplicated; E11.22 Type 2 diabetes mellitus with diabetic chronic kidney disease; E86.0 Dehydration; D63.1 Anemia in chronic kidney disease; E86.9 Volume depletion, unspecified; Y83.8 Other surgical procedures as the cause of abnormal reaction of the patient, or of later complication, without mention of misadventure at the time of the procedure; Z20.822 Contact with and (suspected) exposure to COVID-19; E87.6 Hypokalemia; Z87.891 Personal history of nicotine dependence; Z79.4 Long term (current) use of insulin; Z99.2 Dependence on renal dialysis; Z79.899 Other long term (current) drug therapy; Z79.2 Long term (current) use of antibiotics
CPT/HCPCS: 0202U; 36415; 36558; 71045; 76937; 77001; 80048; 80053; 80069; 80202; 82947; 83036; 83605; 83735; 84100; 84484; 85014; 85018; 85025; 85027; 85610; 86850; 86900; 86901; 86923; 87040; 87077; 87147; 87186; 93005; 93010; 93306; 94760; 96365; 96368; 96375; 99152; 99153; 99285-25; A9270; C1750; C1751; C1769; C1894; C9113; G0378; J0690; J0692; J0881; J1644; J1885; J2250; J2270; J2405; J2543; J2700; J2765; J3010; J3370; J3480; J7030; J7040; J7050; P9046

== ENCOUNTER 2023-02-05 02:08 | Day surgery (SDC) | payer OTHER ==
[~2023-02-05 02:08] MED LIST changes: +CEFAZOLIN SODIUM1 G1 IV; +MUPIROCIN2210 TOP; +PANTOPRAZOLE SO40 M2 PO; +SODBIC650 PO; +SUCRALFATE1 GM/1015 PO; +VISBIOME 112.51 EACH PO
[2023-02-05 08:55] VITALS: BP 89/46
== END 2023-02-05 09:11 | disposition home or self-care (01) ==
LOC: ATC 02:08
DX: R78.81 Bacteremia (principal); B95.61 Methicillin susceptible Staphylococcus aureus infection as the cause of diseases classified elsewhere; E11.22 Type 2 diabetes mellitus with diabetic chronic kidney disease; I12.0 Hypertensive chronic kidney disease with stage 5 chronic kidney disease or end stage renal disease; N18.6 End stage renal disease; Z99.2 Dependence on renal dialysis
CPT/HCPCS: 96374; J0690

== ENCOUNTER 2023-02-06 00:52 | Day surgery (SDC) | payer OTHER ==
[2023-02-06 08:24] VITALS: BP 146/87
== END 2023-02-06 08:40 | disposition home or self-care (01) ==
LOC: ATC 00:52
DX: R78.81 Bacteremia (principal); B95.61 Methicillin susceptible Staphylococcus aureus infection as the cause of diseases classified elsewhere; E11.22 Type 2 diabetes mellitus with diabetic chronic kidney disease; N18.6 End stage renal disease; I12.0 Hypertensive chronic kidney disease with stage 5 chronic kidney disease or end stage renal disease
CPT/HCPCS: 96374; J0690

== ENCOUNTER 2023-02-08 08:25 | Day surgery (SDC) | payer OTHER ==
[2023-02-08 09:24] VITALS: BP 179/92
== END 2023-02-08 09:37 | disposition home or self-care (01) ==
LOC: ATC 08:25
DX: R78.81 Bacteremia (principal); B95.61 Methicillin susceptible Staphylococcus aureus infection as the cause of diseases classified elsewhere; N18.6 End stage renal disease; Z99.2 Dependence on renal dialysis; E11.22 Type 2 diabetes mellitus with diabetic chronic kidney disease; I12.0 Hypertensive chronic kidney disease with stage 5 chronic kidney disease or end stage renal disease
CPT/HCPCS: 96365; J0690

== ENCOUNTER 2023-02-10 01:15 | Day surgery (SDC) | payer OTHER ==
[2023-02-10 08:06] VITALS: BP 194/104
== END 2023-02-10 08:26 | disposition home or self-care (01) ==
LOC: ATC 01:15
DX: R78.81 Bacteremia (principal); B95.61 Methicillin susceptible Staphylococcus aureus infection as the cause of diseases classified elsewhere; I12.0 Hypertensive chronic kidney disease with stage 5 chronic kidney disease or end stage renal disease; E11.22 Type 2 diabetes mellitus with diabetic chronic kidney disease; N18.6 End stage renal disease; Z99.2 Dependence on renal dialysis
CPT/HCPCS: 96365; J0690

== ENCOUNTER 2023-03-26 13:44 | Inpatient (IN) | payer OTHER ==
[~2023-03-26] VITALS: Ht 162.6 cm; Wt 65.5 kg
[2023-03-26 15:01] LABS: BASOPHILS ABSOLUTE AUTO 0.06 K/mm3 (0.00-0.23); BASOPHILS PERCENT AUTO 0 % (0-2); EOSINOPHILS ABSOLUTE AUTO 0.07 K/mm3 (0.00-0.68); EOSINOPHILS PERCENT AUTO 1 % (0-6); Hemoglobin 11.4 g/dL (13.5-17.5); IMMATURE GRAN ABSOLUTE AUTO 0.08 K/mm3 (0.00-0.10); IMMATURE GRAN PERCENT AUTO 1 % (0-1); LYMPHOCYTES ABSOLUTE AUTO 0.92 K/mm3 (0.84-5.20); LYMPHOCYTES PERCENT AUTO 6 % (21-46); MONOCYTES ABSOLUTE AUTO 0.83 K/mm3 (0.16-1.47); MONOCYTES PERCENT AUTO 5 % (4-13); Mean Corpuscular HGB 30.3 pg (26.0-34.0); Mean Corpuscular HGB Conc 33.5 g/dL (31.5-36.5); Mean Corpuscular Volume 90 fL (80-100); Mean Platelet Volume 9.1 fL (9.1-12.4); NEUTROPHILS ABSOLUTE AUTO 13.51 K/mm3 (1.96-9.15); NEUTROPHILS PERCENT AUTO 87 % (41-73); Platelet Count 262 K/mm3 (150-400); RDW Coefficient Variation 13.7 % (11.7-14.2); RDW Standard Deviation 45.8 fL (35.1-46.3); Red Blood Cell Count 3.76 M/mm3 (4.30-5.90); White Blood Cell Count 15.47 K/mm3 (4.00-11.30)
[2023-03-26 15:30] LABS: Albumin, Blood 3.8 g/dL (3.4-5.0); Albumin/Globulin Ratio 0.9 (0.8-1.8); Bilirubin, Total 0.5 mg/dL (0.1-1.0); Bun/Creatinine Ratio 5.2 (12.0-20.0); Calcium, Blood 8.5 mg/dL (8.5-10.1); Creatinine, Blood 9.8 mg/dL (0.60-1.20); Globulin, Blood 4.4 g/dL (2.2-4.0); Total Protein, Blood 8.2 g/dL (6.4-8.2)
[2023-03-26 15:53] LABS: Influenza A, PCR NEGATIVE (NEGATIVE); Influenza B, PCR NEGATIVE (NEGATIVE); Resp Syncytial Virus, PCR NEGATIVE (NEGATIVE); SARS-Cov-2 (COVID-19) PCR, MMC NEGATIVE (NEGATIVE)
--- NOTE | 2023-03-26 19:29 | NUR ---
ONE SET BLOOD CULTURES OBTAINED FROM PATIENT PER CONSULT WITH DR CRONIN. PATIENT ADMITTED FOR FEVER. COVID NEGATIVE AT THIS ADMIT BUT REPORTS RECENTLY RECEIVING FLU VACCINATION. BLOOD SPECIMEN DRAWN AESEPTICALLY FROM VENOUS PORT WITH NO WASTE. PORT FLUSHED WITH NS THEN ANTICOAGULATED AND CAPPED AND SECURED. PATIENT IN NO ACUTE DISTRESS AND ABLE TO AMBULATE TO BR UNAIDED. CULTURE SPECIMEN HANDED TO LICENSED INSURANCE SALES AGENT FOR TRANSPORT TO LAB.
[2023-03-26 21:32] VITALS: BP 130/70
--- NOTE | 2023-03-26 22:33 | NUR ---
ADMIT NOTE 38 YR OLD MALE ADMITTED TO FLOOR FROM THE ED WITH DX OF SEPSIS. TO RULE OUT PERMACATH INFECTION (PERMACATH OF RIGHT CHEST). ON HEMODIALYSIS, LAST HEMODYALYSIS WAS YESTERDAY. UNABLE TO VOID. HX DIABETES 2, CKD AND HTN. IN ED HAD FEVER OF 102.5 F. CURRENT TEMP 99.5 F ORAL. ALERT AND ORIENTED X 4. UP AD HARPER. REFUSED INSULIN. VOICED HAD FLU SHOT AND SEEMED TO BECOME FEBRILE AND OTHER S/S. ORIENTED TO USE OF CALL LIGHT. CALL LIGHT IN REACH. RAILS UP X 2 FOR SAFETY. WILL CONTINUE TO MONITOR. NO NOTED S/S SWELLING OR DISCOLORATION OF PERMACATH SITE.
[2023-03-27 00:31] VITALS: BP 129/81
--- NOTE | 2023-03-27 04:29 | NUR ---
[address]RA[address] FREIGHT SUMMARY WAS ADMITTED EARLIER IN THE SHIFT WITH DX OF SEPSIS, AND R/O INFECTION OF PERMACATH. IS DIABETIC, ACCU CHECK WAS 179, BUT REFUSED INSULIN COVERAGE. ALERT AND ORIENTED. ANTIBIOTICS ADMINISTERED PER MD ORDERS, SEE MAR FOR DETAILS. TEMP ELEVATED AT TIMES, TYLENOL ADMINISTERED AND EFFECTIVE, CURRENTLY TEMP 98.9 ORAL. HAS BEEN RESTING QUIETLY WITH OCCASIONAL TRIPS TO BATHROOM, ETC. IV CAME OUT, WILL REASSESS. CALL LIGHT IN REACH.
[2023-03-27 04:33] VITALS: BP 139/73
[2023-03-27 07:22] LABS: BASOPHILS ABSOLUTE AUTO 0.05 K/mm3 (0.00-0.23); BASOPHILS PERCENT AUTO 0 % (0-2); EOSINOPHILS ABSOLUTE AUTO 0.04 K/mm3 (0.00-0.68); EOSINOPHILS PERCENT AUTO 0 % (0-6); Hematocrit 33.9 % (37.0-53.0); Hemoglobin 11.1 g/dL (13.5-17.5); IMMATURE GRAN ABSOLUTE AUTO 0.09 K/mm3 (0.00-0.10); IMMATURE GRAN PERCENT AUTO 1 % (0-1); LYMPHOCYTES ABSOLUTE AUTO 0.99 K/mm3 (0.84-5.20); LYMPHOCYTES PERCENT AUTO 6 % (21-46); MONOCYTES ABSOLUTE AUTO 1.46 K/mm3 (0.16-1.47); MONOCYTES PERCENT AUTO 8 % (4-13); Mean Corpuscular HGB 29.6 pg (26.0-34.0); Mean Corpuscular HGB Conc 32.7 g/dL (31.5-36.5); Mean Corpuscular Volume 90 fL (80-100); Mean Platelet Volume 9.3 fL (9.1-12.4); NEUTROPHILS ABSOLUTE AUTO 15.16 K/mm3 (1.96-9.15); NEUTROPHILS PERCENT AUTO 85 % (41-73); Platelet Count 217 K/mm3 (150-400); RDW Coefficient Variation 13.5 % (11.7-14.2); Red Blood Cell Count 3.75 M/mm3 (4.30-5.90); White Blood Cell Count 17.79 K/mm3 (4.00-11.30)
[2023-03-27 07:35] VITALS: BP 108/51
[2023-03-27 07:50] LABS: Magnesium, Blood 2.5 mg/dL (1.6-2.4)
[2023-03-27 08:03] LABS: Albumin, Blood 3.6 g/dL (3.4-5.0); Anion Gap 13 mmol/L (6-16); Blood Urea Nitrogen 61 mg/dL (8-24); Bun/Creatinine Ratio 4.8 (12.0-20.0); CO2, Blood 22 mmol/L (21-32); Calcium, Blood 8.3 mg/dL (8.5-10.1); Chloride, Blood 100 mmol/L (98-108); Glomerular Filtration Rate 5 (60-); Glucose, Blood 130 mg/dL (70-99); Phosphorus, Blood 7.5 mg/dL (2.5-4.9); Potassium, Blood 3.8 mmol/L (3.5-5.5); Sodium, Blood 135 mmol/L (136-145)
[2023-03-27 15:17] VITALS: BP 125/59
--- NOTE | 2023-03-27 16:45 | NUR ---
SHIFT SUMMARY PATIENT IS ALERT AND ORIENTED. PATIENT HAS BEEN IND IN ROOM THIS SHIFT. PATIENT HAS HAD NO ACUTE EVENTS THIS SHIFT. PATIENT HAS COMPLAINED OF GI PAIN THIS SHIFT. CONTACTED DR FOR ORDERS, MEDICATED PER EMAR. PATIENT HAS NOT COMPLAINED OF ANY ADDITIONAL PAIN. PATIENT HAS NO COMPLAINTS OF SOB, NAUSEA OR VOMITTING THIS SHIFT. PATIENT HAS NOT HAD A TEMPERATURE ALL SHIFT. BED IN LOCKED AND LOWEST POSITION. CALL LIGHT IN PLACE. WILL MONITOR UNTIL SHIFT CHANGE.
[2023-03-27 19:23] VITALS: BP 107/53
[2023-03-28] VITALS (14 sets, daily range): BP systolic 73–136; BP diastolic 40–77
--- NOTE | 2023-03-28 04:02 | NUR ---
SHIFT SUMMARY PATIENT A/0x4, PLEASANT/INTERACTIVE. WITHOUT C/O PAIN. DENIES FEELING NAUSEA, STATES STOMACH IS JUST UPSET, RECEIVED NEW ORDER PER ON-CALL PROVIDER FOR PRN TUMS. MOSTLY INDEPENDANT IN ROOM. PATIENT STATES HAS BEEN HAVING OCCATIONAL LOOSE STOOLS LAST FEW DAYS, HAD ONE TONIGHT. PIV TO LEFT HAND, PATENT, FLUSHING WELL, SL. WILL HAVE DIALYSIS IN AM. BED LOCKED AND IN LOWEST POSTION, CALL LIGHT WITHIN REACH.
[2023-03-28 04:58] LABS: BASOPHILS ABSOLUTE AUTO 0.07 K/mm3 (0.00-0.23); BASOPHILS PERCENT AUTO 1 % (0-2); EOSINOPHILS ABSOLUTE AUTO 0.28 K/mm3 (0.00-0.68); EOSINOPHILS PERCENT AUTO 3 % (0-6); Hematocrit 35.8 % (37.0-53.0); Hemoglobin 11.8 g/dL (13.5-17.5); IMMATURE GRAN ABSOLUTE AUTO 0.03 K/mm3 (0.00-0.10); IMMATURE GRAN PERCENT AUTO 0 % (0-1); LYMPHOCYTES ABSOLUTE AUTO 1.42 K/mm3 (0.84-5.20); LYMPHOCYTES PERCENT AUTO 13 % (21-46); MONOCYTES ABSOLUTE AUTO 1.25 K/mm3 (0.16-1.47); MONOCYTES PERCENT AUTO 11 % (4-13); Mean Corpuscular HGB 29.5 pg (26.0-34.0); Mean Corpuscular Volume 90 fL (80-100); Mean Platelet Volume 9.6 fL (9.1-12.4); NEUTROPHILS ABSOLUTE AUTO 8.18 K/mm3 (1.96-9.15); NEUTROPHILS PERCENT AUTO 73 % (41-73); Platelet Count 235 K/mm3 (150-400); RDW Coefficient Variation 13.4 % (11.7-14.2); White Blood Cell Count 11.23 K/mm3 (4.00-11.30)
[2023-03-28 05:36] LABS: Magnesium, Blood 2.8 mg/dL (1.6-2.4)
[2023-03-28 06:03] LABS: Albumin, Blood 3.7 g/dL (3.4-5.0); Anion Gap 15 mmol/L (6-16); Blood Urea Nitrogen 71 mg/dL (8-24); CO2, Blood 21 mmol/L (21-32); Calcium, Blood 9.2 mg/dL (8.5-10.1); Chloride, Blood 101 mmol/L (98-108); Glucose, Blood 98 mg/dL (70-99); Potassium, Blood 3.6 mmol/L (3.5-5.5); Sodium, Blood 137 mmol/L (136-145); Vancomycin, Random 29.5 ug/mL
[2023-03-28 06:05] LABS: Bun/Creatinine Ratio 4.7 (12.0-20.0); Glomerular Filtration Rate 4 (60-); Phosphorus, Blood 8.8 mg/dL (2.5-4.9)
--- NOTE | 2023-03-28 06:15 | NUR ---
LAB RECEIVED NOTIFICATION FROM LAB OF CRITICAL VALUES OF PHOS=8.8, CREAT=15.2 PROVIDER NOTIFIED, NO NEW ORDERS, PATIENT WILL HAVE DIALYSIS THIS AM.
--- NOTE | 2023-03-28 07:39 | NUR ---
BP 96/53 DR. LANDRY NOTIFIED. NO NEW ORDERS AT THIS TIME. PER MD, FLUIDS CAN BE GIVEN DURING DIALYSIS.
--- NOTE | 2023-03-28 15:31 | NUR ---
DISCHARGED AFTER DIALYSIS. R/A. ALERT AND ORIENTED X4. FAMILY MEMBER IS AT BEDSIDE. DISCHARGE INSTRUCTIONS DISCUSSED WITH PT. NO QUESTIONS OR CONCERNS AT THIS TIME.
== END 2023-03-28 13:40 | disposition home or self-care (01) | DRG 864 ==
LOC: ER 13:44 → MEDS 20:47
PROVIDERS: Emergency Medicine; Internal Medicine Nephrology; Physician Assistant; ADMIT Family Medicine
PROC: 5A1D70Z Performance of Urinary Filtration, Intermittent, Less than 6 Hours Per Day (ICD-10-PCS; principal; 2023-03-28)
DX: R50.83 Postvaccination fever (principal); N18.6 End stage renal disease; I12.0 Hypertensive chronic kidney disease with stage 5 chronic kidney disease or end stage renal disease; E87.1 Hypo-osmolality and hyponatremia; T50.B95A Adverse effect of other viral vaccines, initial encounter; D63.1 Anemia in chronic kidney disease; D72.829 Elevated white blood cell count, unspecified; E10.22 Type 1 diabetes mellitus with diabetic chronic kidney disease; E10.43 Type 1 diabetes mellitus with diabetic autonomic (poly)neuropathy; K31.84 Gastroparesis; E86.9 Volume depletion, unspecified; K29.50 Unspecified chronic gastritis without bleeding; Z79.4 Long term (current) use of insulin; Z99.2 Dependence on renal dialysis; Z87.891 Personal history of nicotine dependence; Z11.52 Encounter for screening for COVID-19
CPT/HCPCS: 0241U; 36415; 71045; 80053; 80069; 80202; 82947; 83605; 83690; 83735; 85025; 87040; 93005; 93010; 96374; 99285-25; A9270; J0690; J1644; J1815; J3370; J7050; P9046

== ENCOUNTER 2023-07-28 06:39 | Day surgery (SDC) | payer OTHER ==
[~2023-07-28] VITALS: Ht 160 cm; Wt 64.9 kg
[~2023-07-28 06:39] MED LIST changes: +INSULIN LI100 UNIT/6 SC; +LANTUS SOL100 UNIT/1 SC; +LOSARTAN POTASS25 M2 PO; +Lopressor 25 mg25 MG PO; +MEGESTROL400 MG/13 PO; -METO25ER PO; +RENVELA800 MG PO
[2023-07-28] MEDS ORDERED: Lactated Ringer's 1,000 ML IV ONE (07:47)
[2023-07-28] MEDS ORDERED: NS 1,000 ML IV ONE (08:12)
[2023-07-28] MEDS ORDERED: FentaNYL Citrate 50 MCG/ML 2 ML Injection ONE (08:18)
[2023-07-28] MEDS ORDERED: Midazolam HCL 1 MG/ML 5MLVIAL ONE (08:18)
[2023-07-28] MEDS ORDERED: propofoL 50 ML IV ONE (08:19)
[2023-07-28 09:30] VITALS: BP 116/69
== END 2023-07-28 09:33 | disposition home or self-care (01) ==
LOC: ORSCSDS 06:39
PROVIDERS: Internal Medicine Gastroenterology
PROC: 0DJD8ZZ Inspection of Lower Intestinal Tract, Via Natural or Artificial Opening Endoscopic (ICD-10-PCS; principal; 2023-07-28 08:15)
PROC: 0DB98ZX Excision of Duodenum, Via Natural or Artificial Opening Endoscopic, Diagnostic (ICD-10-PCS; principal; 2023-07-28 08:15)
PROC: 0DB78ZX Excision of Stomach, Pylorus, Via Natural or Artificial Opening Endoscopic, Diagnostic (ICD-10-PCS; principal; 2023-07-28 08:15)
DX: R93.3 Abnormal findings on diagnostic imaging of other parts of digestive tract (principal); K29.80 Duodenitis without bleeding; K29.71 Gastritis, unspecified, with bleeding; Z87.19 Personal history of other diseases of the digestive system; E10.22 Type 1 diabetes mellitus with diabetic chronic kidney disease; I12.0 Hypertensive chronic kidney disease with stage 5 chronic kidney disease or end stage renal disease; N18.6 End stage renal disease; Z79.4 Long term (current) use of insulin; Z79.899 Other long term (current) drug therapy; Z87.891 Personal history of nicotine dependence
CPT/HCPCS: 82947; 88305; 88342; J2250; J2704; J3010; J7030; J7120

== ENCOUNTER → 2024-08-13 | Outpatient (CLI) | payer OTHER | END | disposition home or self-care (01) | LOC: LAB SHORT 09:00 → LAB 09:00 | DX: M10.9 Gout, unspecified (principal); N18.6 End stage renal disease | CPT/HCPCS: 84550 ==

== ENCOUNTER → 2025-01-14 | Outpatient (CLI) | payer OTHER | END | disposition home or self-care (01) | LOC: LAB 07:00 → LAB SHORT 07:00 | DX: N18.6 End stage renal disease (principal); E03.9 Hypothyroidism, unspecified; Z99.2 Dependence on renal dialysis | CPT/HCPCS: 84443 ==